=== PATIENT | female | born 1955 | race Caucasian/White ===

== ENCOUNTER 2023-06-20 08:06 | Outpatient (REF) | payer MEDICARE, OTHER, SELFPAY ==
--- NOTE | ~2023-06-20 | FL_ITS ---
EXAMINATION: XR FLUOROSCOPY UPPER GI WITH AIR CLINICAL INFORMATION: Dysphagia COMPARISON: None TECHNIQUE: Fluoroscopic air contrast upper GI examination was performed utilizing standard techniques with thin and thick barium and effervescent granules. Numerous spot images were obtained. FINDINGS: Lateral cine images of the oropharynx and hypopharynx demonstrate normal swallow mechanism with normal epiglottic inversion and soft palate elevation. No tracheal penetration, glottic or subglottic aspiration identified. Minimal nasopharyngeal reflux present. Hypopharyngeal structures appear normal without evidence of mass or diverticulum. There is moderate persistent cricopharyngeal achalasia present. Dual and single contrast images of the esophagus demonstrate normal caliber, contour, and mucosal pattern. No evidence of stricture, mass, or ulcerations identified. There is to and fro motion of the barium column with nonpropulsive tertiary contractions noted throughout the entire esophagus. A small type I hiatal hernia is present. Mildly ratty appearing mucosa noted within the hiatus hernia, suggesting possible erosive changes/peptic disease. No significant gastroesophageal reflux was seen during the course of the examination and on reflux views. Dual contrast and single contrast images of the stomach demonstrated normal contour and mucosal pattern without evidence of mass, ulceration, or other abnormality. Contrast freely passed into the gastric antrum and duodenal bulb without delay. Single and air-contrast images of the duodenal bulb demonstrate no abnormality. The duodenal sweep has a normal appearance, course, and mucosal fold appearance. There is a second segment duodenal diverticulum. No malrotation. The imaged proximal jejunum has a normal fold pattern and caliber. FLUOROSCOPY TIME: 4 minutes 24 seconds Number of Spot Images: 8 Number of Cine: 12 DOSE AREA PRODUCT: 2447 uGy-m2 (microgray-meter squared) FL/FL barium swallow IMPRESSION: 1. Moderate persistent pronounced cricopharyngeal achalasia. 2. Esophageal dysmotility, moderate. 3. Small type I hiatal hernia, with possible ratty type mucosa within, which may be circulation sales representative of erosive changes. 4. Second segment duodenal diverticulum. This procedure was performed by Jay Garibay PA-C, and supervised by Dr. Dominguez
== END 2023-06-20 08:07 | disposition home or self-care (01) ==
LOC: HO.XRAY 08:06
PROVIDERS: PCP Internal Medicine; Visit Provider Otolaryngology
DX: R13.10 Dysphagia, unspecified (principal)
CPT/HCPCS: 74220

== ENCOUNTER → 2023-06-20 08:08 | Outpatient (BNV) | payer MEDICARE, OTHER, SELFPAY | PROVIDERS: PCP Internal Medicine; Visit Provider Physician Assistant Surgical | DX: R13.10 Dysphagia, unspecified (principal) | CPT/HCPCS: 74246 ==

== ENCOUNTER 2023-09-30 19:59 | Emergency (ER) | payer MEDICARE, OTHER, SELFPAY ==
--- NOTE | ~2023-09-30 | XR_ITS ---
EXAMINATION: XR KNEE, RIGHT CLINICAL INFORMATION: Twisting injury, pain COMPARISON: None available. TECHNIQUE: Four views of the right knee. FINDINGS: Bones are diffusely osteopenic. No fracture or joint effusion. Alignment is anatomic. Joint spaces are maintained. No abnormal soft tissue calcification. XR/XR knee RT 4V IMPRESSION: No acute fracture or dislocation of the right knee.
--- NOTE | 2023-09-30 20:04 | ED.PSYCH ---
HPI - Psych General Chief Complaint: Extremity Injury, Lower Stated Complaint: fall, R knee pain Time Seen by Provider: 09/30/23 21:27 History of Present Illness ED Provider: Irving BORGES Narrative: The patient is a 67-year-old female who comes to the emergency room after injuring her right knee. She says that she was outside near her car when she lost her balance and started to fall. She was able to catch herself against the car so she did not fall down but in doing so she twisted her right knee and has had pain in the knee ever since. This happened earlier today. She did not actually fall and she did not actually hit the knee. She has been able to walk but has been having pain with walking. She says that she falls a lot and has been falling a lot for a long time. She has a cane with her today but says she does not normally use the cane. Related Data Allergies Allergy/AdvReac Type Severity Reaction Status Date / Time procaine [From Novocain] AdvReac Agitated Verified 09/30/23 20:06 Review of Systems Review of Systems: Yes all other systems are reviewed and are negative [facility] Social History Social History Advance Directives: No Advance Directives Information Provided: No Do you have a plan to hurt others: No Plan Physical Exam Vital Signs: Vital Signs: Last Vital Signs Temp 97.3 F 09/30/23 22:05 Pulse 89 09/30/23 22:05 Resp 16 09/30/23 22:05 BP 141/73 H 09/30/23 22:05 Pulse Ox 95 09/30/23 22:05 O2 Del Method Room Air 09/30/23 22:05 BMI result Body Mass Index 32.3 Const: Other: The patient is awake, alert, pleasant, cooperative. She was standing using a cane when I entered the room. She was limping slightly. HEENT: Other: Face is symmetrical, mucous membranes moist Resp: Effort & Inspection: normal respiratory effort Skin: Other: The skin of the right knee is normal. There is no redness or swelling or bruising. Neuro: Other: The patient is awake and alert with a normal mental status. Face is symmetrical. Speech is clear. She seems to have a steady gait with a cane. Extrem: Other: No deformities of the right leg. No soft tissue swelling to the right knee. No effusion appreciated. I can manipulate the knee fairly well in all directions. There is tenderness on the lateral aspect of the knee but no gross instability. Course Course Course Narrative: This is an RME performed by Marjan Cr CNP: Additional HPI, ROS, PE not included below will be deferred to primary provider. Patient is a 67-year-old female who presents emergency department for evaluation. She states she was walking downstairs in her garage when she tripped and had a near fall. Believes that she twisted her right knee a certain way and is having pain particularly along the lateral aspect radiating up her thigh by with localized swelling Plan: XR Medical Decision Making Medical Decision Making MDM Narrative: I believe the patient has sustained a mild right knee sprain with a twisting mechanism as she had a slight fall. There was no direct blow to the knee. There were no other injuries. An x-ray of the knee shows no acute bony abnormalities and no joint effusion. She will be given a knee immobilizer and advised to rest and take it easy, avoid walking for the next few days, elevate the leg often, use ice, and follow up with her regular doctor. Discharge Plan Discharge Clinical Impression: Right knee sprain Patient Disposition: Home, Self-Care Instructions: Knee Sprain (ED) Additional Instructions: I believe that you have sustained a mild sprain to your right knee. I have looked at your x-ray and do not see any obvious problems. If the radiologist sees something I do not see I will call you. Please use the knee immobilizer to stabilize the knee and for comfort. Rest and take it easy for the next few days. Keep the right leg elevated. Stay off the leg as much as you are able to for the next few days. Apply ice to the knee for 10-15 minutes several times a day. I would recommend that you use your cane routinely to help avoid falls in the future. Follow up soon with your regular doctor. Return to the emergency room if worse. Referrals: Doc Acharya MD [Primary Care Provider] - (right knee sprain) Interventions: ED Discharge Assessment Last Done: 09/30/23 22:05 Discharge Date/Time: 09/30/23 22:06 Print Language: Setswana
[2023-09-30 20:05] VITALS: BP 141/73; PULSE 89; RESP 16; TEMP 36.3; O2SAT 95; BMI 32.3
--- OUTSIDE RECORDS SUMMARY | 2023-09-30 21:24 | XMS_ITS | Continuity of Care Document ---
Author Organization [facility] Address [address] [place] [address] [address] [place] [address]- Care Team Providers Care Drier Tender Name Role Phone Doc Acharya MD Primary Care Physician [facility] Date(s): 06/02/23 - 07/02/23 [facility] [address] [place] [id number] Allergies, Adverse Reactions, Alerts Substance Reaction Severity Status epinephrine increaased heart rate and rapid breathing Active Novocain heavy breathing Active Latex rash Active Immunizations Given and Recorded Vaccine Date Status Refusal Reason influenza virus vaccine, inactivated 1 01/12/23 Gi zakiya influenza virus vaccine, inactivated 2 11/26/21 Gi zakiya influenza virus vaccine, inactivated 12/07/19 Give n influenza virus vaccine, inactivated 12/05/17 Brent rded influenza virus vaccine, inactivated 3 02/18/17 Gi zakiya influenza virus vaccine, inactivated 10/12/15 Give n influenza virus vaccine, inactivated 10/07/15 Brent rded influenza virus vaccine, inactivated 01/19/15 Give n influenza virus vaccine, inactivated 11/18/13 Brent rded influenza virus vaccine, inactivated 4 11/18/13 Re corded influenza virus vaccine, inactivated 5 12/21/12 Gi zakiya [id number] bivalent booster vax 12/16/21 Recorded SARS-CoV-2 mRNA (kgchzmn-krde-ambdq) vax 6 12/04/21 Recorded SARS-CoV-2 (COVID-19) mRNA-1273 vaccine 01/28/21 R ecorded SARS-CoV-2 (COVID-19) mRNA-1273 vaccine 05/29/20 G iven SARS-CoV-2 (COVID-19) mRNA-1273 vaccine 05/01/20 G iven pneumococcal 23-valent vaccine 11/16/19 Given pneumococcal 13-valent vaccine 09/27/18 Given tetanus/diphtheria/pertussis, acel(Tdap) 09/25/14 Given FluLaval (oldterm) 7 11/12/11 Given FluLaval (oldterm) 8 02/15/11 Given influ virus vac, H1N1, inactive(oldterm) 11/27/09 Given Influenza Virus Vaccine (oldterm) 9 02/04/09 Given Influenza Virus Vaccine (oldterm) 01/05/08 Given Influenza Inactive (IM) (oldterm) 10 12/22/05 Give n tetanus-diphtheria toxoids (Td) 12/09/05 Given tetanus-diphtheria toxoids (Td) 02/29/96 Given 1Result Comment: [id number] Checklist done 2Result Comment: [facility]# [id number] 3Result Comment: [02/18/2017] [facility]:[id number] 4Location History: [facility] 5Admin Note: [facility] 6Result Comment: booster 7Admin Note: [employer] 8Admin Note: [employer] 9Admin Note: per pt rcvd [facility]where 10Admin Note: [facility] Medications hydrocortisone 2.5% topical cream See Instructions, APPLY TOPICALLY TO AFFECTED AREA THREE TIMES A DAY, # 28 Gm, 6 Refills, Maintenance, 06/14/22 10:25:00 EDT, [facility], 15, APPLY TOPICALLY TO AFFECTED AREA THREE TIMES A DAY, 168, cm, 05/18/22 12:13:00 EDT, Height, 98, kg,... Start Date: 06/14/22 Status: Ordered levothyroxine 0.088 mg oral tablet 1 tablet, By Mouth, Daily, # 90 tablet, 3 Refills, Maintenance, 11/18/22 13:51:00 EDT, [facility], 168, cm, 10/21/22 6:56:00 EDT, Height, 98, kg, 11/29/21 14:21:00 EDT, Dry Weight Start Date: 11/18/22 Status: Ordered nystatin topical 880803 u/gm powder 1 application, Topically, 2 times a day, for 14 days, # 60 Gm, 0 Refills, Acute 07/15/23 11:02:00 EDT, 07/01/23 11:02:00 EDT, Powder, [facility], Partial fill upon patient request if the prescription is for a schedule II opioid drug., 1 appli... Start Date: 07/01/23 Stop Date: 07/15/23 Status: Ordered Problem List Condition Confirmation Course Effective Dates Status H ealth Status Informant Actinic keratosis Confirmed Active Anxiety Confirmed Active Colonoscopy 1, 2 Confirmed Active Eczema Confirmed Active Episcleritis Confirmed Active Elevated sedimentation rate Confirmed Active Gastroesophageal reflux disease with hiatal hernia 3 Confirmed Active H/O psoriasis Confirmed Active Hematuria Confirmed Active Hypothyroid Confirmed Active IBS (irritable bowel syndrome) Confirmed Active Multiple thyroid nodules 4 Confirmed Active Neck pain Confirmed Active Nephrolithiasis Confirmed Active Ovarian cyst Confirmed Active Left knee pain Confirmed Active Panic attacks Confirmed Active Polyarthritis Confirmed Active Polycystic ovarian disease Confirmed Active Uterine polyp Confirmed Active Postherpetic neuralgia Confirmed Active Prolonged QT interval Confirmed Active Recurrent UTI Confirmed Active Renal cyst Confirmed Active Right aortic arch Confirmed Active Seasonal allergies Confirmed Active Severe obesity (BMI 35.0-39.9) with comorbidity Confirmed Active Cricopharyngeal achalasia Confirmed Active Unsteady gait Confirmed Active Vertigo Confirmed Active 1Colonoscopy 2013 normal, repeat 2023. 36490 negative repeat 2013 3egd 2008 negative barretts 4noted by ct scan done at [facility] 2009 Social History Social History Type Response Smoking Status Never smoker entered on: 03/26/13 Sex Patient Care team information Care Team Personnel Name: Patrizia DOWNING, Doc Calzada Position: S Physician - Primary Care Member Role: PCP Address: Address: [address] [place] [address]- Care Team Related Persons Name: CHRIS BAEZ Name: STELLA BAEZ Address: home [address] [place] [id number]
--- OUTSIDE RECORDS SUMMARY | 2023-09-30 21:24 | XMS_ITS | Continuity of Care Document ---
Author Organization [facility] Address [address] [place] [address]- Care Team Providers Care Document Review Attorney Name Role Phone Doc Acharya MD Primary Care Physician [facility]): 05/18/22 - 06/17/22 [facility] [address] [place] [address]- Attending Physician: Admtr, Ar8 Allergies, Adverse Reactions, Alerts Substance Reaction Severity Status epinephrine Active Novocain heavy breathing Active Latex Active Immunizations Given and Recorded Vaccine Date Status Refusal Reason SARS-CoV-2 mRNA (bexmtmo-brbf-gatjd) vax 1 12/04/21 Recorded influenza virus vaccine, inactivated 2 11/26/21 Gi zakiya influenza virus vaccine, inactivated 12/07/19 Give n influenza virus vaccine, inactivated 3 02/18/17 Gi zakiya influenza virus vaccine, inactivated 10/12/15 Give n influenza virus vaccine, inactivated 10/07/15 Brent rded influenza virus vaccine, inactivated 01/19/15 Give n influenza virus vaccine, inactivated 11/18/13 Brent rded influenza virus vaccine, inactivated 4 11/18/13 Re corded influenza virus vaccine, inactivated 5 12/21/12 Gi zakiya SARS-CoV-2 (COVID-19) mRNA-1273 vaccine 05/29/20 G iven SARS-CoV-2 (COVID-19) mRNA-1273 vaccine 05/01/20 G iven pneumococcal 23-valent vaccine 11/16/19 Given pneumococcal 13-valent vaccine 09/27/18 Given tetanus/diphtheria/pertussis, acel(Tdap) 09/25/14 Given FluLaval (oldterm) 6 11/12/11 Given FluLaval (oldterm) 7 02/15/11 Given influ virus vac, H1N1, inactive(oldterm) 11/27/09 Given Influenza Virus Vaccine (oldterm) 8 02/04/09 Given Influenza Virus Vaccine (oldterm) 01/05/08 Given Influenza Inactive (IM) (oldterm) 9 12/22/05 Given tetanus-diphtheria toxoids (Td) 12/09/05 Given tetanus-diphtheria toxoids (Td) 02/29/96 Given 1Result Comment: booster 2Result Comment: [facility]# [id number] 3Result Comment: [02/18/2017] [facility]:[id number] 4[facility] 5[facility] Note: [facility] 6Admin Note: [employer] 7Admin Note: [employer] 8Admin Note: per pt rcvd eklsewhere 9Admin Note: [facility] Medications hydrocortisone 2.5% topical cream See Instructions, APPLY TOPICALLY TO AFFECTED AREA THREE TIMES A DAY, # 28 Gm, 6 Refills, Maintenance, 06/14/22 10:25:00 EDT, [facility] # [facility], 15, APPLY TOPICALLY TO AFFECTED AREA THREE TIMES A DAY, 168, cm, 05/18/22 12:13:00 EDT, Height, 98, kg,... Start Date: 06/14/22 Status: Ordered levothyroxine 0.088 mg oral tablet 1 tablet, By Mouth, Daily, # 30 tablet, 5 Refills, Maintenance, 04/13/22 6:31:00 EST, [facility] # [facility], 168, cm, 01/06/22 13:21:00 EST, Height, 98, kg, 11/29/21 14:21:00 EDT, Dry Weight Start Date: 04/13/22 Status: Ordered physical therapy physical therapy, See Instructions, # 1 each, Refills 0, Tot. Refills 0, Maintenance, evaluate and treat for left knee pain, 05/18/22 12:54:00 EDT, Supply Start Date: 05/18/22 Status: Ordered Problem List Condition Confirmation Course [...] Confirmed Active Polycystic ovarian disease Confirmed Active Postherpetic neuralgia Confirmed Active Prolonged QT interval Confirmed Active Renal cyst Confirmed Active Right aortic arch Confirmed Active Seasonal allergies Confirmed Active Unsteady gait Confirmed Active Vertigo Confirmed Active 1Colonoscopy 2013 normal, repeat negative repeat 2013 3egd 2008 negative barretts 4noted by ct scan done [place] [facility] [place] 2009 Social History Social History Type Response Smoking Status Never smoker entered on: 03/26/13 Sex Note * Event Display: Non [facility] Lab Results Authored Date: * Event Display: Non [facility] Lab Results Authored Date: * Event Display: Non BH Lab Results Authored Date: * Event Display: Non [facility] Lab Results Authored Date: * Event Display: Ultrasound Pelvis, Non-BH Authored Date: * Event Display: Radiology Result Scanned Authored Date: * Annie Sargent.: PERFORM Event Display: Radiology Results Scanned Authored Date: * Jacqueline Kline: PERFORM Event Display: Cardiovascular Results Scanned Authored Date: * Annie Sargent.: PERFORM Event Display: Radiology Results Scanned Authored Date: Cardiology Outpatient Note * Jacqueline Kline: PERFORM Event Display: Cardiology Note Office Authored Date: Patient Care team information Care Team Personnel Name: Doc Acharya MD Position: [facility] Primary Care Physician Member Role: PCP Address: Address: [address] [place] [address] [place] [address]- Care Team Related Persons Name: CHRIS BAEZ Name: STELLA BAEZ Address: home [address] [place] [id number]
--- OUTSIDE RECORDS SUMMARY | 2023-09-30 21:24 | XMS_ITS | Continuity of Care Document ---
Author Organization [facility] Address [address] [place] [address]- Care Team Providers Care Texturing Machine Fixer Name Role Phone Doc Acharya MD Primary Care Physician Encounter [facility] Date(s): 07/05/23 - 08/11/23 [facility] [address] [place] [address]- Attending Physician: David Hamm MD Admitting Physician: David Hamm MD Referring Physician: Doc Acharya MD Allergies, Adverse Reactions, Alerts Substance Reaction Severity Status epinephrine increaased heart rate and rapid breathing Active Latex rash Active Novocain heavy breathing Active Immunizations Given and Recorded Vaccine Date [...] virus vaccine, inactivated 5 12/21/12 Gi zakiya [id number] bivalent booster vax 12/16/21 Recorded SARS-CoV-2 mRNA (hrudlpi-htxd-ntooo) vax 6 12/04/21 Recorded SARS-CoV-2 (COVID-19) mRNA-1273 [...] tetanus-diphtheria toxoids (Td) 02/29/96 Given 1Result Comment: [id number] Checklist done 2Result Comment: [facility]# [id number] 3Result Comment: [02/18/2017] [facility]:[id number] 4Location History: [facility] 5Admin Note: [facility] 6Result Comment: booster 7Admin Note: [employer] 8Admin Note: [employer] 9Admin Note: per pt rcvd eklsewhere 10Admin Note: [facility] Medications hydrocortisone 2.5% topical cream See Instructions, APPLY TOPICALLY TO AFFECTED AREA THREE TIMES A DAY, # 28 Gm, 6 Refills, Maintenance, 06/14/22 10:25:00 EDT, [facility], 15, APPLY TOPICALLY TO AFFECTED AREA THREE TIMES A DAY, 168, cm, 05/18/22 12:13:00 EDT, Height, 98, kg,... Start Date: 06/14/22 Status: Ordered levothyroxine 0.088 mg oral tablet 1 tablet, By Mouth, Daily, # 90 tablet, 3 Refills, Maintenance, 11/18/22 13:51:00 EDT, [facility], 168, cm, 10/21/22 6:56:00 EDT, Height, 98, kg, 11/29/21 14:21:00 EDT, Dry Weight Start Date: 11/18/22 Status: Ordered Nystop 338163 u/gm powder See Instructions, APPLY TOPICALLY TWO TIMES A DAY FOR 14 DAYS, # 60 Gm, 0 Refills, Maintenance, 07/26/23 11:00:00 EDT, [facility], 30, APPLY TOPICALLY TWO TIMES A DAY FOR 14 DAYS, 167.64, cm, 07/07/23 11:17:00 EDT, Height, 98.4, kg, 12/21/22... Start Date: 07/26/23 Status: Ordered Problem List Condition Confirmation Course [...] barretts 4noted by ct scan done at [facility] [place] 2009 Social History Social History Type Response Smoking Status Never smoker entered on: 03/26/13 Sex Patient Care team information Care Team Personnel Name: Doc Acharya MD Position: [facility] Physician - Primary Care Member Role: PCP Address: Address: [address] [place] [address]- Care Team Related Persons Name: CHRIS BAEZ Name: STELLA BAEZ Address: [address] [place] [address]
--- OUTSIDE RECORDS SUMMARY | 2023-09-30 21:24 | XMS_ITS | Continuity of Care Document ---
Author Organization [facility] Address [address] [place] [address] [address] [place] [address]- Care Team Providers Care Spoon Maker Name Role Phone Dco Acharya MD Primary Care Physician [facility]s): 05/[facility]23 - 06/30/23 [facility] [address] [place] [id number] Attending Physician: Admtr, Son8 Admitting Physician: Admtr, Ar8 Referring Physician: Admtr, Ar8 Allergies, Adverse Reactions, Alerts [...] virus vaccine, inactivated 5 12/21/12 Gi zakiya [id number] bivalent booster vax 12/16/21 Recorded SARS-CoV-2 mRNA (nwovxwg-vazz-xlbxb) vax 6 12/04/21 Recorded SARS-CoV-2 (COVID-19) mRNA-1273 [...] tetanus-diphtheria toxoids (Td) 02/29/96 Given 1Result Comment: [id number] Checklist done 2Result Comment: [facility]# [id number] 3Result Comment: [02/18/2017] [facility]:[id number] 4Location History: [facility] 5Admin Note: [facility] 6Result Comment: booster 7Admin Note: [employer] 8Admin Note: [employer] 9Admin Note: per pt rcvd eklsewhere 10Admin Note: [facility] Medications hydrocortisone 2.5% topical cream See Instructions, APPLY TOPICALLY TO AFFECTED AREA THREE TIMES A DAY, # 28 Gm, 6 Refills, Maintenance, 06/14/22 10:25:00 EDT, [facility], 15, APPLY TOPICALLY TO AFFECTED AREA THREE TIMES A DAY, 168, cm, 05/18/22 12:13:00 EDT, Height, 98, kg,... Start Date: 06/14/22 Status: Ordered levothyroxine 0.088 mg oral tablet 1 tablet, By Mouth, Daily, # 90 tablet, 3 Refills, Maintenance, 11/18/22 13:51:00 EDT, [facility], 168, cm, 10/21/22 6:56:00 EDT, Height, 98, kg, 11/29/21 14:21:00 EDT, Dry Weight Start Date: 11/18/22 Status: Ordered Problem List Condition Confirmation Course [...] obesity (BMI 35.0-39.9) with comorbidity Confirmed Active Unsteady gait Confirmed Active Vertigo Confirmed Active 1Colonoscopy 2013 normal, repeat negative repeat 2013 3e2008 negative barretts 4noted by ct scan done at [facility] [place] 2009 Social History Social History Type Response Smoking Status Never smoker entered on: 03/26/13 Sex Patient Care team information Care Team Personnel Name: Doc Acharya MD Position: [facility] Physician - Primary Care Member Role: PCP Address: Address: [address] [place] [address]- Care Team Related Persons Name: CHRIS BAEZ Name: STELLA BAEZ Address: home [address] [place] [address]
--- OUTSIDE RECORDS SUMMARY | 2023-09-30 21:24 | XMS_ITS | Continuity of Care Document ---
Author Organization [facility] Address [address] [place] [address]- Care Team Providers Care Plate Stacker Hand Name Role Phone Patrizia DOWNING, Doc Calzada Primary Care Physician [facility] Date(s): 07/01/23 - 07/31/23 [facility] Adult [address] [place] [address]- Attending Physician: Admtr, Ar8 Allergies, Adverse Reactions, [...] influenza virus vaccine, inactivated 3 02/18/17 Gi azkiya influenza virus vaccine, inactivated 10/12/15 Give n influenza virus vaccine, inactivated 10/07/15 Brent rded influenza virus vaccine, inactivated 01/19/15 Give n influenza virus vaccine, inactivated 11/18/13 Brent rded influenza virus vaccine, inactivated 4 11/18/13 Re corded influenza virus vaccine, inactivated 5 12/21/12 Gi zakiya [id number] bivalent booster vax 12/16/21 Recorded SARS-CoV-2 mRNA (whlwala-gmhb-qvlha) vax 6 12/04/21 Recorded SARS-CoV-2 (COVID-19) mRNA-1273 [...] tetanus-diphtheria toxoids (Td) 02/29/96 Given 1Result Comment: [id number] Checklist done 2Result Comment: HD [facility]# [id number] 3Result Comment: [02/18/2017] [facility]:[id number] 4Location History: [facility] 5Admin Note: [facility] 6Result Comment: booster 7Admin Note: [employer] 8Admin Note: [employer] 9Admin Note: per pt rcvd [facility] 10Admin Note: clinic [facility] Medications hydrocortisone 2.5% topical cream See Instructions, APPLY TOPICALLY TO AFFECTED AREA THREE TIMES A DAY, # 28 Gm, 6 Refills, Maintenance, 06/14/22 10:25:00 EDT, [facility], 15, APPLY TOPICALLY TO AFFECTED AREA THREE TIMES A DAY, 168, cm, 05/18/22 12:13:00 EDT, Height, 98, kg,... Start Date: 06/14/22 Status: Ordered levothyroxine 0.088 mg oral tablet 1 tablet, By Mouth, Daily, # 90 tablet, 3 Refills, Maintenance, 11/18/22 13:51:00 EDT, [facility], 168, cm, 10/21/22 6:56:00 EDT, Height, 98, kg, 11/29/21 14:21:00 EDT, Dry Weight Start Date: 11/18/22 Status: Ordered Nystop 126026 u/gm powder See Instructions, APPLY TOPICALLY TWO [...] barretts 4noted by ct scan done at [facility] [place] 2009 Social History Social History Type Response Smoking Status Never smoker entered on: 03/26/13 Sex Cardiology * Jacqueline Kline: PERFORM Event Display: Cardiovascular Results Scanned Authored Date: Laboratory * Event Display: Non BH Lab Results Authored Date: * Event Display: Non BH Lab Results Authored Date: * Event Display: Non BH Lab Results Authored Date: * Event Display: Non BH Lab Results Authored Date: Cardiology Outpatient Note * Jacqueline Kline: PERFORM Event Display: Cardiology Note Office Authored Date: [id number] Radiology * Event Display: IR Special Procedures, Non-BH Authored Date: * Event Display: Ultrasound Pelvis, Non-BH Authored Date: * Event Display: Radiology Result Scanned Authored Date: * Annie Sargent.: PERFORM Event Display: Radiology Results Scanned Authored Date: [id number] * Annie Sargent.: PERFORM Event Display: Radiology Results Scanned Authored Date: Patient Care team information Care Team Personnel Name: Patrizia DOWNING, Doc Calzada Position: S Physician - Primary Care Member Role: PCP Address: Address: [address] [place] [address]- Care Team Related Persons Name: CHRIS BAEZ Name: STELLA BAEZ Address: [address] [address]
--- OUTSIDE RECORDS SUMMARY | 2023-09-30 21:24 | XMS_ITS | Continuity of Care Document ---
Author Organization [facility] Address [address] [place] [address]- Care Team Providers Care Public Relations Professional Name Role Phone Doc Acharya MD Primary Care Physician [phone] Encounter [facility] Date(s): 01/12/23 - 01/19/23 [facility] Adult [address] [place] [address]- Encounter Diagnosis Hypothyroid(Discharge Diagnosis) - 01/12/23 Nephrolithiasis(Discharge Diagnosis) - 01/12/23 Attending Physician: Doc Acharya MD Allergies, Adverse Reactions, [...] virus vaccine, inactivated 5 12/21/12 Gi zakiya [id number] bivalent booster vax 12/16/21 Recorded SARS-CoV-2 mRNA (qkeurjr-ubiw-nptbp) vax 6 12/04/21 Recorded SARS-CoV-2 (COVID-19) mRNA-1273 [...] tetanus-diphtheria toxoids (Td) 02/29/96 Given 1Result Comment: [id number] Checklist done 2Result Comment: [facility]# [id number] 3Result Comment: [02/18/2017] [facility]:[id number] 4Location History: [facility] 5Admin Note: [facility] 6Result Comment: booster 7Admin Note: [facility] [employer] 8Admin Note: [facility] 9Admin Note: per pt rcvd [facility] 10Admin Note: clinic [facility] Medications hydrocortisone 2.5% topical cream See Instructions, APPLY TOPICALLY TO AFFECTED AREA THREE TIMES A DAY, # 28 Gm, 6 Refills, Maintenance, 06/14/22 10:25:00 EDT, [facility], 15, APPLY TOPICALLY TO AFFECTED AREA THREE TIMES A DAY, 168, cm, 05/18/22 12:13:00 EDT, Height, 98, kg,... Start Date: 06/14/22 Status: Ordered levothyroxine 0.088 mg oral tablet 1 tablet, By Mouth, Daily, # 90 tablet, 3 Refills, Maintenance, 11/18/22 13:51:00 EDT, [facility], 168, cm, 10/21/22 6:56:00 [...] barretts 4noted by ct scan done at [facility] [place] 2009 Diagnosis Diagnosis Type Effective Dates Health Status Cl inical Service Informant Hypothyroid Discharge Diagnosis 01/12/23 Nephrolithiasis Discharge Diagnosis 01/12/23 Vital Signs Most recent to oldest [Reference Range]: 1 Height 167.64 cm (01/12/23 9:36 AM) Weight 99.7 kg (01/12/23 9:36 AM) Oxygen Saturation [94-100 %] 99 % (01/12/23 9:36 AM) Pulse Rate [55-90 bpm] 89 bpm (01/12/23 9:36 AM) Body Mass Index [18.5-24.99 kg/m2] 35.48 kg/m2 *>HHI* (01/12/23 9:36 AM) Blood Pressure [90-138/55-84 mm Hg] 100/ 70mm Hg (01/12/23 9:36 AM) Mode of Delivery (Oxygen) Room air (01/12/23 9:36 AM) Blood pressure sites Arm, left (01/12/23 9:36 AM) Weight Obtained Via Standing scale (01/12/23 9:36 AM) Social History Social History Type Response Smoking Status Never smoker entered on: 03/26/13 Sex Patient Care team information Care Team Personnel Name: Patrizia DOWNING, Doc Calzada Position: S Physician - Primary Care Member Role: PCP Address: Address: [address] [place], [place] [address], [place] [address] [place] Care Team Related Persons Name: CHRIS BAEZ Name: STELLA BAEZ Address: home [address] [place] [address]
--- OUTSIDE RECORDS SUMMARY | 2023-09-30 21:25 | XMS_ITS | Continuity of Care Document ---
Author Organization [facility] Address [address] [place] [address]- Care Team Providers Care Retail Security Professional Name Role Phone Doc Acharya MD Primary Care Physician [phone] [facility] Date(s): 03/26/22 - 04/25/[address] [address] Attending Physician: Annie Chaney Admitting Physician: Admtr, Annie Referring Physician: Admtr, Ar8 Allergies, Adverse Reactions, Alerts Substance Reaction Severity Status epinephrine Active Novocain heavy breathing Active Latex Active Immunizations Given and Recorded Vaccine Date Status Refusal Reason SARS-CoV-2 mRNA (xtssymo-fvkk-wkgfp) vax 1 12/04/21 Recorded influenza virus vaccine, [...] Given 1Result Comment: booster 2Result Comment: HD [facility]# [id number] 3Result Comment: [02/18/2017] [facility]:[id number] 4Location History: [facility] 5Admin Note: [facility] 6Admin Note: [employer] 7Admin Note: [employer] 8Admin Note: per pt rcvd [facility] 9Admin Note: clinic [facility] Medications hydrocortisone 2.5% topical cream See Instructions, APPLY TOPICALLY THREE TIMES A DAY, # 30 Gm, 0 Refills, Maintenance, 04/13/22 10:51:00 EST, [facility] # [facility], 30, APPLY TOPICALLY THREE TIMES A DAY, 168, cm, 01/06/22 13:21:00 EST, Height, 98, kg, 11/29/21 14:21:00 EDT, Dry Weight Start Date: 04/13/22 Status: Ordered levothyroxine 0.088 mg oral tablet 1 tablet, By Mouth, Daily, # 30 tablet, 5 Refills, Maintenance, 04/13/22 6:31:00 EST, [facility] # [facility], 168, cm, 01/06/22 13:21:00 EST, Height, 98, kg, 11/29/21 14:21:00 EDT, Dry Weight Start Date: 04/13/22 Status: Ordered Problem List Condition Confirmation Course [...] Neck pain Confirmed Active Nephrolithiasis Confirmed Active Obese class II Confirmed Active Ovarian cyst Confirmed Active Panic attacks Confirmed Active Polyarthritis Confirmed Active Polycystic ovarian disease Confirmed Active Postherpetic neuralgia Confirmed Active Prolonged QT interval Confirmed Active Renal cyst Confirmed Active Right aortic arch Confirmed Active Seasonal allergies Confirmed Active Unsteady gait Confirmed Active Vertigo Confirmed Active 1Colonoscopy 2013 normal, repeat negative repeat 2013 3egd 2008 negative barretts 4noted by ct scan done at [facility] [place] 2009 Social History Social History Type Response Smoking Status Never smoker entered on: 03/26/13 Sex Patient Care team information Care Team Personnel Name: Patrizia DOWNING, Doc Calzada Position: [facility] Primary Care Physician Member Role: PCP Address: Address: [address] [place] [address]- Care Team Related Persons Name: CHRIS BAEZ Name: STELLA BAEZ Address: home [address] [place] [address]
--- OUTSIDE RECORDS SUMMARY | 2023-09-30 21:25 | XMS_ITS | Continuity of Care Document ---
Author Organization [facility] Address [address] [place] [address]- Care Team Providers Care Apprentice Funeral Director Name Role Phone Doc Acharya MD Primary Care Physician Encounter [facility] Date(s): 10/21/22 - 10/28/22 [facility] Adult [address] [place] [address]- Encounter Diagnosis Hypothyroid(Discharge Diagnosis) - 10/21/22 Severe obesity (BMI 35.0-39.9) with comorbidity(Discharge Diagnosis) - 10/21/22 Attending Physician: Doc Acharya MD Allergies, Adverse Reactions, Alerts Substance Reaction Severity Status epinephrine Active Novocain heavy breathing Active Latex Active Immunizations Given and Recorded Vaccine Date Status Refusal Reason SARS-CoV-2 mRNA (coxnork-nbye-pdeak) vax 1 12/04/21 Recorded influenza virus vaccine, inactivated 2 11/26/21 Gi zakiya influenza virus vaccine, inactivated 12/07/19 Give n influenza virus vaccine, inactivated 3 02/18/17 Gi zakiya influenza virus vaccine, inactivated 10/12/15 Give n influenza virus vaccine, inactivated 10/07/15 Brent rded influenza virus vaccine, inactivated 01/19/15 Give n influenza virus vaccine, inactivated 11/18/13 Bernt rded influenza virus vaccine, inactivated 4 11/18/13 [...] Given 1Result Comment: booster 2Result Comment: HD [facility]# [id number] 3Result Comment: [02/18/2017] [facility]:[id number] 4Location History: [facility] 5Admin Note: [facility] 6Admin Note: [employer] [facility] 7Admin Note: [employer] [facility] 8Admin Note: per pt rcvd [facility] 9Admin Note: clinic [facility] Medications hydrocortisone 2.5% topical cream See Instructions, APPLY TOPICALLY TO AFFECTED AREA THREE TIMES A DAY, # 28 Gm, 6 Refills, Maintenance, 06/14/22 10:25:00 EDT, [facility], 15, APPLY TOPICALLY TO AFFECTED AREA THREE TIMES A DAY, 168, cm, 05/18/22 12:13:00 EDT, Height, 98, kg,... Start Date: 06/14/22 Status: Ordered levothyroxine 0.088 mg oral tablet 1 tablet, By Mouth, Daily, # 90 tablet, 3 Refills, Maintenance, 10/21/22 7:27:00 EDT, [facility], 168, cm, 10/21/22 6:56:00 EDT, Height, 98, kg, 11/29/21 14:21:00 EDT, Dry Weight Start Date: 10/21/22 Status: Ordered physical therapy physical therapy, See [...] barretts 4noted by ct scan done at [facility] [place] 2009 Diagnosis Diagnosis Type Effective Dates Health Status Clinical Service Informant Hypothyroid Discharge Diagnosis 10/21/22 Severe obesity (BMI 35.0-39.9) with comorbidity Discharge Diagnosis 10/21/22 Vital Signs Most recent to oldest [Reference Range]: 1 Height 168 cm (10/21/22 6:56 AM) Weight 98.8 kg (10/21/22 6:56 AM) Oxygen Saturation [94-100 %] 98 % (10/21/22 6:56 AM) Pulse Rate [55-90 bpm] 84 bpm (10/21/22 6:56 AM) Body Mass Index [18.5-24.99 kg/m2] 35.01 kg/m2 *>HHI* (10/21/22 6:56 AM) Blood Pressure [90-138/55-84 mm Hg] 122/ 62mm Hg (10/21/22 6:56 AM) Blood pressure sites Arm, left (10/21/22 6:56 AM) Weight Obtained Via Standing scale (10/21/22 6:56 AM) Social History Social History Type Response Smoking Status Never smoker entered on: 03/26/13 Sex Note * Tori Dao: PERFORM, SIGN, VERIFY Event Display: Patient Education/Instruction Authored Date: [id number] [facility] *BMP Verónica Delacruz Clinical Summary Name BING SKELTON Age 67 Years 1955 PCP Patrizia DOWNING, Doc Calzada PCP Visit Date 10/21/2022 06:50:00 Additional Instructions: Scheduled Appointments?? Future Appointments ?*BMP??[facility] [address] ?Phone:??--?Fax:??-- ?Appt. Date:??01/12/2023?9:30 AM ?Scheduled Provider:??Doc Acharya MD Follow-Up Instructions ?? With: Address: When: Doc Acharya MD Comments: As scheduled Diagnosis Urinary tract infection, site not specified; Hypothyroidism, unspecified; Polyp of corpus uteri; Morbid (severe) obesity due to excess calories Medications: Please continue your medications until treatment is completed or stopped by your provider. Discuss any questions related to medications with your provider. Medications to Continue with No Changes [facility] [place], [place] [id number], [phone] Levothyroxine (levothyroxine 0.088 mg oral tablet) 1 tab(s) Oral Daily. Refills: 3. Next Dose: These medications were not printed or sent to your pharmacy Hydrocortisone Topical (hydrocortisone 2.5% topical cream) APPLY TOPICALLY TO AFFECTED AREA THREE TIMES A DAY. Refills: 6. Next Dose: Miscellaneous Rx (physical therapy) evaluate and treat for left knee pain. Refills: 0. Next Dose: Nitrofurantoin (Macrobid macrocrystals-monohydrate 100 mg oral capsule) 1 capsule Oral twice a day for 5 Days. with food. Refills: 0. Next Dose: Allergy Info:?? Latex; Novocain; epinephrine Medications Given This Visit Future Orders ?CBC? Order Date:10/21/22?- Complete on or after?10/21/22 ?Thyroid Panel? Order Date:10/21/22?- Complete on or after?10/21/22 ?Comprehensive Metabolic Panel? Order Date:10/21/22?- Complete on or after?10/21/22 ?Direct LDL? Order Date:10/21/22?- Complete on or after?10/21/22 Vital Signs Height 168 cm Weight 98.8 kg BMI 35.01 kg/m2 Blood Pressure 122 mm Hg/62 mm Hg Temperature Pulse Rate 84 bpm Respiratory Rate 02 Sat Mode of Delivery 98 %/ You can now view a summary of your hospital visit from the comfort of your home through a free online portal called [employer]. [employer] is a website that allows you to securely view your medical information including discharge summary, medications and follow-up visits. ??You can alsosend a secure electronic message to your doctor???s office to request appointments, renew medications or just ask a question. You can enroll at [email or web address] or register during your next office visit. Disclaimer:?? The information provided is of a general nature and is intended to be used in conjunction with the recommendations and advice of your health care practitioner. ??Every effort has been made to ensure that the information provided is accurate and complete at the time it is provided to you however, as your needs change, or, as new ??information becomes available, different or additional instructions may be required. If you have questions, please consult with your primary care provider or pharmacist, as appropriate. ??This information is not intended to serve as substitution for assessment and evaluation by a qualified health care provider. If you do not have a primary care provider, you may find a [facility] provider by calling [facility] at [phone]. For information about the plan of care including goals and instructions for your diagnosis, please see the patient education orders section of this document. Patient Education Materials?? The content of this educational material or handout may have been modified, supplemented, or adapted from its original content and format to support your individualized medical care. Patient Care team information Care Team Personnel Name: Patrizia DONWING, Doc Calzada Position: S Physician - Primary Care Member Role: PCP Address: Address: [address] [place] [address]- Care Team Related Persons Name: CHRIS BAEZ Name: STELLA BAEZ Address: [address] [place] [address]
--- OUTSIDE RECORDS SUMMARY | 2023-09-30 21:25 | XMS_ITS | Continuity of Care Document ---
Author Organization [facility] Address [address] [place] [address]- Care Team Providers Care Health Lead Name Role Phone Doc Acharya MD Primary Care Physician [phone] Encounter [facility] Date(s): 03/11/22 - 05/26/22 [facility] [address] [place] [address]- Encounter Diagnosis Pain in right knee(Final) - Discharge Disposition: A-D/C Home Attending Physician: Doc Acharya MD Admitting Physician: Doc Acharya MD Referring Physician: Doc Acharya MD Allergies, Adverse Reactions, Alerts Substance Reaction Severity Status epinephrine Active Novocain heavy breathing Active Latex Active Immunizations Given and Recorded Vaccine Date Status Refusal Reason SARS-CoV-2 mRNA (bxplotf-avoj-prcjf) vax 1 12/04/21 Recorded influenza virus vaccine, [...] 1Result Comment: booster 2Result Comment: HD [facility]# [id number] 3Result Comment: [02/18/2017] [facility]:[id number] 4[facility] History: [facility] 5Admin Note: [facility] 6Admin Note: [employer] 7Admin Note: [facility] 8Admin Note: per pt rcvd [facility] 9Admin Note: [facility] Medications hydrocortisone 2.5% topical cream See Instructions, APPLY TOPICALLY THREE TIMES A DAY, # 30 Gm, 0 Refills, Maintenance, 05/10/22 9:05:00 EDT, [facility], 30, APPLY TOPICALLY THREE TIMES A DAY, 168, cm, 01/06/22 13:21:00 EST,Height, 98, kg, 11/29/21 14:21:00 EDT, Dry Weight Start Date: 05/10/22 Status: Ordered levothyroxine 0.088 mg oral tablet 1 tablet, By Mouth, Daily, # 30 tablet, 5 Refills, Maintenance, 04/13/22 6:31:00 EST, [facility], 168, cm, 01/06/22 13:21:00 [...] barretts 4noted by ct scan done [place] [facility] [place] 2009 Social History Social History Type Response Smoking Status Never smoker entered on: 03/26/13 Sex Patient Care team information Care Team Personnel Name: Doc Acharya MD Position: [facility] Primary Care Physician Member Role: PCP Address: Address: [address] [place] [address]- Care Team Related Persons Name: CHRIS BAEZ Name: STELLA BAEZ Address: home [address] [place] [address]
--- OUTSIDE RECORDS SUMMARY | 2023-09-30 21:25 | XMS_ITS | Continuity of Care Document ---
Author Organization [facility] Address [address] [place] [address]- Care Team Providers Care Academic Department Chair Name Role Phone Doc Acharya MD Primary Care Physician [phone] [facility] Date(s): 10/22/22 - 11/21/22 [facility] Adult [address] [place] [address]- Allergies, Adverse Reactions, Alerts Substance Reaction Severity Status epinephrine Active Novocain heavy breathing Active Latex Active Immunizations Given and Recorded Vaccine Date Status Refusal Reason SARS-CoV-2 mRNA (tsglsgr-txms-jatab) vax 1 12/04/21 Recorded influenza virus vaccine, [...] Given 1Result Comment: booster 2Result Comment: [facility]# [id number] 3Result Comment: [02/18/2017] [facility]:[id number] 4Location History: [facility] 5Admin Note: [facility] 6Admin Note: [employer] 7Admin Note: [employer] 8Admin Note: per pt rcvd [facility] 9Admin Note: clinic [facility] Medications hydrocortisone 2.5% topical cream See Instructions, APPLY TOPICALLY TO AFFECTED AREA THREE TIMES A DAY, # 28 Gm, 6 Refills, Maintenance, 06/14/22 10:25:00 EDT, [facility], 15, APPLY TOPICALLY TO AFFECTED AREA THREE TIMES A DAY, 168, cm, 05/18/22 12:13:00 EDT, Height, 98, kg,... Start Date: 06/14/22 Status: Ordered levothyroxine 0.088 mg oral tablet 1 tablet, By Mouth, Daily, # 90 tablet, 3 Refills, Maintenance, 11/18/22 13:51:00 EDT, [facility], 168, cm, 10/21/22 6:56:00 EDT, Height, 98, kg, 11/29/21 14:21:00 EDT, Dry Weight Start Date: 11/18/22 Status: Ordered physical therapy physical therapy, See [...] barretts 4noted by ct scan done [place] [facility] [place] Social History Social History Type Response Smoking Status Never smoker entered on: 03/26/13 Sex Patient Care team information Care Team Personnel Name: Doc Acharya MD Position: [facility] Physician - Primary Care Member Role: PCP Address: Address: [address] [place] [address]- Care Team Related Persons Name: CHRIS BAEZ Name: STELLA BAEZ Address: home [address] [place] [address]
--- OUTSIDE RECORDS SUMMARY | 2023-09-30 21:25 | XMS_ITS | Continuity of Care Document ---
Author Organization [facility] Address [address] [place] [address]- Care Team Providers Care Manufacturing Engineering Professor Name Role Phone Doc Acharya MD Primary Care Physician [facility] Date(s): 11/30/21 - 12/30/21 [facility] Adult [address] [place] [address]- Allergies, Adverse Reactions, Alerts Substance Reaction Severity Status epinephrine Active Novocain heavy breathing Active Latex Active Immunizations Given and Recorded Vaccine Date Status Refusal Reason SARS-CoV-2 mRNA (nogeapv-gdxs-lwmvk) vax 1 12/04/21 Recorded influenza virus vaccine, [...] Given 1Result Comment: booster 2Result Comment: HD [facility]# [id number] 3Result Comment: [02/18/2017] [facility]:[id number] 4Location History: [facility] 5Admin Note: [facility] 6Admin Note: [facility] 7Admin Note: [facility] 8Admin Note: per pt rcvd [facility] 9Admin Note: [facility] Medications hydrocortisone 2.5% topical cream See Instructions, APPLY TOPICALLY THREE TIMES A DAY, # 28 Gm, 0 Refills, Maintenance, 12/18/21 17:20:00 EDT, [facility], 30, APPLY TOPICALLY THREE TIMES A DAY, 168, cm, 12/01/21 11:18:00 EDT, Height, 98, kg, 11/29/21 14:21:00 EDT, Dry Weight Start Date: 12/18/21 Status: Ordered levothyroxine 0.088 mg oral tablet See Instructions, TAKE ONE TABLET BY MOUTH EVERY DAY, # 30 tablet, 5 Refills, 10/15/21 10:54:00 EDT, [facility], Early refill, 170, cm, 10/09/21 12:40:00 EDT, Height Start Date: 10/15/21 Status: Ordered Problem List Condition Confirmation Course [...] Confirmed Active Nephrolithiasis Confirmed Active Obese class I Confirmed Active Ovarian cyst Confirmed Active Panic attacks Confirmed Active Polyarthritis Confirmed Active Polycystic ovarian disease Confirmed Active Postherpetic neuralgia Confirmed Active Prolonged QT interval Confirmed Active Renal cyst Confirmed Active Right aortic arch Confirmed Active Seasonal allergies Confirmed Active Unsteady gait Confirmed Active Vertigo Confirmed Active 1Colonoscopy 2013 normal, repeat 2023. negative repeat 2013 3egd 2009 negative barretts 4noted by ct scan done at [facility] 2009 Social History Social History Type Response Smoking Status Never smoker entered on: 03/26/13 Sex Patient Care team information Personnel Name: Patrizia DOWNING, Doc Calzada Address: Address: [address] [place] [id number]
--- OUTSIDE RECORDS SUMMARY | 2023-09-30 21:25 | XMS_ITS | Continuity of Care Document ---
Author Organization [facility] Kadeem Cecil Address [address] [place] [address]- Care Team Providers Care Shipping And Receiving Clerk Name Role Phone Patrizia DOWNING, Doc Calzada Primary Care Physician [phone] [facility] 07[facility]14[facility]21 - 07/21/21 [facility] Adult [address] [place] [address]- Attending Physician: Yisel Lyons Referring Physician: John Garcia MD Allergies, Adverse Reactions, Alerts Substance Reaction Severity Status epinephrine Active Novocain heavy breathing Active Latex Active Immunizations Given and Recorded Vaccine Date Status Refusal Reason SARS-CoV-2 (COVID-19) mRNA-1273 vaccine 05/29/20 G iven SARS-CoV-2 (COVID-19) mRNA-1273 vaccine 05/01/20 G iven influenza virus vaccine, inactivated 12/07/19 Give n influenza virus vaccine, inactivated 1 02/18/17 Gi zakyia influenza virus vaccine, inactivated 10/12/15 Give n influenza virus vaccine, inactivated 10/07/15 Brent rded influenza virus vaccine, inactivated 01/19/15 Give n influenza virus vaccine, inactivated 11/18/13 Brent rded influenza virus vaccine, inactivated 2 11/18/13 Re corded influenza virus vaccine, inactivated 3 12/21/12 Gi zakiya pneumococcal 23-valent vaccine 11/16/19 Given pneumococcal 13-valent vaccine 09/27/18 Given tetanus/diphtheria/pertussis, acel(Tdap) 09/25/14 Given FluLaval (oldterm) 4 11/12/11 Given FluLaval (oldterm) 5 02/15/11 Given influ virus vac, H1N1, inactive(oldterm) 11/27/09 Given Influenza Virus Vaccine (oldterm) 6 02/04/09 Given Influenza Virus Vaccine (oldterm) 01/05/08 Given Influenza Inactive (IM) (oldterm) 7 12/22/05 Given tetanus-diphtheria toxoids (Td) 12/09/05 Given tetanus-diphtheria toxoids (Td) 02/29/96 Given 1Result Comment: [02/18/2017] [facility]:[id number] 2Location History: [facility] 3Admin Note: [facility] 4Admin Note: [email or web address] 5Admin Note: [email or web address] 6Admin Note: per pt rcvd [facility] 7Admin Note: [facility] Medications Estrace Vaginal Cream 0.1 mg/g See Instructions, 1 gm vaginally daily at bedtime x one month and then reduce to twice a week, # 42.5 Gm, 0 Refills, Maintenance, 06/30/21 8:29:00 EDT, [facility], 170, cm, 06/30/21 8:09:00 EDT, Height Start Date: 06/30/21 Status: Ordered levothyroxine 0.088 mg oral tablet See Instructions, TAKE ONE TABLET BY MOUTH EVERY DAY, # 30 tablet, 2 Refills, [facility], 170, cm, 05/07/21 8:11:00 EST, Height Start Date: 05/18/21 Status: Ordered Problem List Condition Effective Dates Status Health Status Inform ant Actinic keratosis(Confirmed) Active Anxiety(Confirmed) Active Colonoscopy(Confirmed) 1, 2 Active Eczema(Confirmed) Active Episcleritis(Confirmed) Active Elevated sedimentation rate(Confirmed) Active Gastroesophageal reflux dise ase with hiatal hernia(Confirmed) 3 Active H/O psoriasis(Confirmed) Active Hematuria(Confirmed) Active Hypothyroid(Confirmed) Active IBS (irritable bowel syndrome)(Confirmed) Active Multiple thyroid nodules(Confirmed) 4 Active Neck pain(Confirmed) Active Nephrolithiasis(Confirmed) Active Obese class I(Confirmed) Active Ovarian cyst(Confirmed) Active Panic attacks(Confirmed) Active Polyarthritis(Confirmed) Active Polycystic ovarian disease(Confirmed) Active Postherpetic neuralgia(Confirmed) Active Prolonged QT interval(Confirmed) Active Renal cyst(Confirmed) Active Right aortic arch(Confirmed) Active Seasonal allergies(Confirmed) Active Unsteady gait(Confirmed) Active 1Colonoscopy 2013 normal, repeat negative repeat 2013 3egd 2009 negative barretts 4noted by ct scan done at [facility] [place] 2009 Vital Signs Most recent to oldest [Reference Range]: 1 Height 170 cm (07/14/21 10:38 AM) Oxygen Saturation [94-100 %] 98 % (07/14/21 10:38 AM) Pulse Rate [55-90 bpm] 81 bpm (07/14/21 10:38 AM) Blood Pressure [90-138/55-84 mm Hg] 117/ 47mm Hg (07/14/21 10:38 AM) Temperature [96.8-100.4 DegF] 97.4 DegF (07/14/21 10:38 AM) Blood pressure sites Arm, right (07/14/21 10:38 AM) Temperature Route Temporal (07/14/21 10:38 AM) Social History Social History Type Response Smoking Status Never smoker entered on: 03/26/13 Sex
--- OUTSIDE RECORDS SUMMARY | 2023-09-30 21:25 | XMS_ITS | Continuity of Care Document ---
Author Organization [facility] Kadeem Cecil lt Address [address] [place] [address]- Care Team Providers Care Patient Relations Coordinator Name Role Phone Doc Acharya MD Primary Care Physician [facility]): 05/07/21 - 06/06/21 [facility] Adult [address] [place] [address]- Attending Physician: Admtr, Ar8 Allergies, Adverse Reactions, Alerts Substance Reaction Severity Status epinephrine Active Novocain heavy breathing Active Latex Active Immunizations Given and Recorded Vaccine Date Status Refusal Reason SARS-CoV-2 (COVID-19) mRNA-1273 vaccine 05/29/20 G iven SARS-CoV-2 (COVID-19) mRNA-1273 vaccine 05/01/20 G iven influenza virus vaccine, inactivated 12/07/19 Give n influenza virus vaccine, inactivated 1 02/18/17 Gi zakiya influenza virus vaccine, inactivated [...] toxoids (Td) 02/29/96 Given 1Result Comment: [02/18/2017] [facility]:[id number] 2[facility] 3Admin Note: [facility] 4Admin Note: [facility] 5Admin Note: [facility] 6Admin Note: per pt rcvd [facility]where 7Admin Note: [facility] Medications levothyroxine 0.088 mg oral tablet See Instructions, TAKE ONE TABLET BY MOUTH EVERY DAY, # 30 tablet, 2 Refills, [facility], 170, cm, 05/07/21 8:11:00 [...] barretts 4noted by ct scan [place] [facility] [place] Social History Social History Type Response Smoking Status Never smoker entered on: 03/26/13 Sex
--- OUTSIDE RECORDS SUMMARY | 2023-09-30 21:25 | XMS_ITS | Continuity of Care Document ---
Author Organization [facility] Address [address] [place] [address]- Care Team Providers Care Vertica Architect Name Role Phone Doc Acharya MD Primary Care Physician [phone] [facility]s): 07/15/21 - 10/09/[address] [address] Discharge Disposition: A-D/C Home Attending Physician: Yisel Lyons Admitting Physician: iYsel Lyons Referring Physician: Yisel Lyons Allergies, Adverse Reactions, Alerts Substance Reaction Severity [...] toxoids (Td) 02/29/96 Given 1Result Comment: [02/18/2017] [facility]:[id number] 2Location History: [facility] 3Admin Note: [facility] 4Admin Note: [employer] 5Admin Note: [employer] 6Admin Note: per pt rcvd [facility]where 7Admin Note: [facility] Medications levothyroxine 0.088 mg oral tablet See Instructions, TAKE ONE TABLET BY MOUTH EVERY DAY, # 30 tablet, 5 Refills, 08/16/21 10:08:00 EDT, [facility], 170, cm, 08/13/21 11:28:00 EDT, Height Start Date: 08/16/21 Status: Ordered Problem List Condition Effective Dates [...] Active Seasonal allergies(Confirmed) Active Unsteady gait(Confirmed) Active Vertigo(Confirmed) Active 1Colonoscopy 2013 normal, repeat negative repeat 2013 3egd 2009 negative barretts 4noted by ct [place] [facility] [place] Social History Social History Type Response Smoking Status Never smoker entered on: 03/26/13 Sex
--- OUTSIDE RECORDS SUMMARY | 2023-09-30 21:25 | XMS_ITS | Continuity of Care Document ---
Author Organization [facility] Address [address] [place] [address]- Care Team Providers Care Chef De Partie Name Role Phone Patrizia DOWNING, Doc Calzada Primary Care Physician [phone] [facility](s): 09/10/19 - 10/10/19 [facility] Adult [address] [place] [address]- [facility] Allergies, Adverse Reactions, Alerts Substance Reaction Severity Status epinephrine Active Novocain heavy breathing Active Immunizations Given and Recorded Vaccine Date Status Refusal Reason pneumococcal 13-valent vaccine 09/27/18 Given influenza virus vaccine, inactivated 1 02/18/17 Gi zakiya influenza virus vaccine, inactivated 10/12/15 Give n influenza virus vaccine, inactivated 10/07/15 Brent rded influenza virus vaccine, inactivated 01/19/15 Give n influenza virus vaccine, inactivated 11/18/13 Brent rded influenza virus vaccine, inactivated 2 11/18/13 Re corded influenza virus vaccine, inactivated 3 12/21/12 Gi zakiya tetanus/diphtheria/pertussis, acel(Tdap) 09/25/14 Given FluLaval (oldterm) 4 11/12/11 Given FluLaval (oldterm) 5 02/15/11 Given influ virus vac, H1N1, inactive(oldterm) 11/27/09 Given Influenza Virus Vaccine (oldterm) 6 02/04/09 Given Influenza Virus Vaccine (oldterm) 01/05/08 Given Influenza Inactive (IM) (oldterm) 7 12/22/05 Given tetanus-diphtheria toxoids (Td) 12/09/05 Given tetanus-diphtheria toxoids (Td) 02/29/96 Given 1Result Comment: [02/18/2017] [facility]:[id number] 2Location History: [facility] 3Admin Note: [facility] 4Admin Note: [employer] 5Admin Note: [employer] 6Admin Note: per pt rcvd [facility]where 7Admin Note: clinic [facility] Medications Levoxyl 0.075 mg oral tablet 1 tablet = 75 mcg, By Mouth, Daily, # 90 tablet, 1 Refills, Maintenance, 04/26/19 16:11:00 EST, Tablet, [facility], 170, cm, 09/27/18 8:36:00 EDT, Height Start Date: 04/26/19 Status: Ordered Problem List Condition Effective Dates Status Health Status Inform ant Actinic keratosis(Confirmed) Active Anxiety(Confirmed) Active Colonoscopy(Confirmed) 1, 2 Active Eczema(Confirmed) Active Episcleritis(Confirmed) Active Elevated sedimentation rate(Confirmed) Active Gastroesophageal reflux dise ase with hiatal hernia(Confirmed) 3 Active H/O psoriasis(Confirmed) Active Hematuria(Confirmed) Active Hypothyroid(Confirmed) Active IBS (irritable bowel syndrome)(Confirmed) Active Multiple thyroid nodules(Confirmed) 4 Active Neck pain(Confirmed) Active Nephrolithiasis(Confirmed) Active Ovarian cyst(Confirmed) Active Panic attacks(Confirmed) Active Polyarthritis(Confirmed) Active Polycystic ovarian disease(Confirmed) Active Postherpetic neuralgia(Confirmed) Active Prolonged QT interval(Confirmed) Active Renal cyst(Confirmed) Active Right aortic arch(Confirmed) Active Seasonal allergies(Confirmed) Active Unsteady gait(Confirmed) Active 1Colonoscopy 2013 normal, repeat 2023. negative repeat 2013 3egd 2009 negative barretts 4noted by ct scan done [place] [facility] [place] 2010 Social History Social History Type Response Smoking Status Never smoker entered on: 03/26/13 Sex
--- OUTSIDE RECORDS SUMMARY | 2023-09-30 21:25 | XMS_ITS | Continuity of Care Document ---
Author Organization [facility] Cecil lt Address [address] [place] [address]- Care Team Providers Care Disc Ruler Operator Name Role Phone Doc Acharya MD Primary Care Physician [phone] [facility] Date(s): 11/18/22 - 12/18/22 [facility] Adult [address] [place] [address]- Allergies, Adverse Reactions, Alerts Substance Reaction Severity Status epinephrine Active Novocain heavy breathing Active Latex Active Immunizations Given and Recorded Vaccine Date Status Refusal Reason SARS-CoV-2 mRNA ([id number]) vax 1 12/04/21 Recorded influenza virus vaccine, [...] Given 1Result Comment: booster 2Result Comment: [facility] [place]NOTE 2]# [id number] 3Result Comment: [02/18/2017] [facility] [place] 2]:[id number] 4Location History: [facility] 5Admin Note: [facility] 6Admin Note: [employer] 7Admin Note: [employer] [facility] [employer] 8Admin Note: per pt rcvd [facility]where 9Admin Note: clinic [facility] Medications hydrocortisone 2.5% topical cream See Instructions, APPLY TOPICALLY TO AFFECTED AREA THREE TIMES A DAY, # 28 Gm, 6 Refills, Maintenance, 06/14/22 10:25:00 EDT, [facility] # [facility], 15, APPLY TOPICALLY TO AFFECTED AREA THREE TIMES A DAY, 168, cm, 05/18/22 12:13:00 EDT, Height, 98, kg,... Start Date: 06/14/22 Status: Ordered levothyroxine 0.088 mg oral tablet 1 tablet, By Mouth, Daily, # 90 tablet, 3 Refills, Maintenance, 11/18/22 13:51:00 EDT, [facility], 168, cm, 10/21/22 6:56:00 [...] barretts 4[place] [facility] [place] Social History Social History Type Response Smoking Status Never smoker entered on: 03/26/13 Sex Patient Care team information Care Team Personnel Name: Doc Acharya MD Position: [facility] Physician - Primary Care Member Role: PCP Address: Address: [address] [place] [address]- Care Team Related Persons Name: CHRIS BAEZ Name: STELLA BAEZ Address: home [address] [place] [address]
--- OUTSIDE RECORDS SUMMARY | 2023-09-30 21:25 | XMS_ITS | Continuity of Care Document ---
Author Organization [facility] Address [address] [place] [address]- Care Team Providers Care Academic Computing Director Name Role Phone Doc Acharya MD Primary Care Physician [facility] Date(s): 07/01/23 - 07/31/23 [facility] [address] [place] [address]- [place] Allergies, Adverse Reactions, Alerts Substance Reaction Severity [...] 11/18/13 Brent rded influenza virus vaccine, inactivated 11/18/13 Re corded influenza virus vaccine, inactivated 12/21/12 Gi zakiya [id number] bivalent booster vax 12/16/21 Recorded SARS-CoV-2 mRNA (fkbeddn-kdyv-ukmai) vax 6 12/04/21 Recorded SARS-CoV-2 (COVID-19) mRNA-1273 vaccine 01/28/21 R ecorded SARS-CoV-2 (COVID-19) mRNA-1273 vaccine 05/29/20 G iven SARS-CoV-2 (COVID-19) mRNA-1273 vaccine 05/01/20 G iven pneumococcal 23-valent vaccine 9/18/20 Given pneumococcal 13-valent vaccine 09/27/18 Given tetanus/diphtheria/pertussis, acel(Tdap) 09/25/14 Given FluLaval (oldterm) 7 11/12/11 Given FluLaval (oldterm) 8 02/15/11 Given influ virus vac, H1N1, inactive(oldterm) 11/27/09 Given Influenza Virus Vaccine (oldterm) 9 02/04/09 Given Influenza Virus Vaccine (oldterm) 01/05/08 Given Influenza Inactive (IM) (oldterm) 10 12/22/05 Give n tetanus-diphtheria toxoids (Td) 12/09/05 Given tetanus-diphtheria toxoids (Td) 02/29/96 Given 1Result Comment: [id number] Checklist done 2Result Comment: [facility]# [id number] 3Result Comment: [02/18/2017] [facility]:[id number] 4Location History: [facility] 5Admin Note: [facility] 6Result Comment: booster 7Admin Note: [employer] 8Admin Note: [employer] 9Admin Note: per pt rcvd [facility] 10Admin Note: clinic [facility] Medications hydrocortisone 2.5% topical cream See Instructions, APPLY TOPICALLY TO AFFECTED AREA THREE TIMES A DAY, # 28 Gm, 6 Refills, Maintenance, 06/14/22 10:25:00 EDT, [facility], 15, APPLY TOPICALLY TO AFFECTED AREA THREE TIMES A DAY, 168, cm, 05/18/22 12:13:00 EDT, Height, 98, kg,... Start Date: 06/14/22 Status: Ordered levothyroxine 0.088 mg oral tablet 1 tablet, By Mouth, Daily, # 90 tablet, 3 Refills, Maintenance, 11/18/22 13:51:00 EDT, [facility], 168, cm, 10/21/22 6:56:00 EDT, Height, 98, kg, 11/29/21 14:21:00 EDT, Dry Weight Start Date: 11/18/22 Status: Ordered Nystop 466014 u/gm powder See Instructions, APPLY TOPICALLY TWO [...] Confirmed Active 1Colonoscopy 2013 normal, repeat 2023. 55440 negative repeat 2013 3egd 2008 negative barretts 4[place] by [place] [facility] [place] Social History Social History Type Response Smoking Status Never smoker entered on: 03/26/13 Sex Patient Care team information Care Team Personnel Name: Doc Acharya MD Position: S Physician - Primary Care Member Role: PCP Address: Address: [address] [place] [address]- Care Team Related Persons Name: CHRIS BAEZ Name: STELLA BAEZ Address: home [address] [place] [address]
--- OUTSIDE RECORDS SUMMARY | 2023-09-30 21:25 | XMS_ITS | Continuity of Care Document ---
Author Organization [facility] Address [address] [place] [address]- Care Team Providers Care Clinic Lead Name Role Phone Patrizia DOWNING, Doc Calzada Primary Care Physician [facility] 07[facility]23 - 07/08/23 [facility] Adult [address] [place] [address]- Encounter Diagnosis Cricopharyngeal achalasia(Discharge Diagnosis) - 07/01/23 Rash(Discharge Diagnosis) - 07/01/23 Attending Physician: Yisel Lyons Allergies, Adverse Reactions, Alerts [...] virus vaccine, inactivated 5 12/21/12 Gi zakiya [id number] bivalent booster vax 12/16/21 Recorded SARS-CoV-2 mRNA (shreodm-muiq-gnljf) vax 6 12/04/21 Recorded SARS-CoV-2 (COVID-19) mRNA-1273 [...] tetanus-diphtheria toxoids (Td) 02/29/96 Given 1Result Comment: [id number] Checklist done 2Result Comment: [facility]# [id number] 3Result Comment: [02/18/2017] [facility]:[id number] 4Location History: [facility] 5Admin Note: [facility] 6Result Comment: booster 7Admin Note: [employer] 8Admin Note: [facility] 9Admin Note: per pt rcvd [facility] 10Admin Note: clinic [facility] Medications hydrocortisone 2.5% topical cream See Instructions, APPLY TOPICALLY TO AFFECTED AREA THREE TIMES A DAY, # 28 Gm, 6 Refills, Maintenance, 06/14/22 10:25:00 EDT, [facility], 15, APPLY TOPICALLY TO AFFECTED AREA THREE TIMES A DAY, 168, cm, 05/18/22 12:13:00 EDT, Height, 98, kg,... Start Date: 06/14/22 Status: Ordered levothyroxine 0.088 mg oral tablet 1 tablet, By Mouth, Daily, # 90 tablet, 3 Refills, Maintenance, 11/18/22 13:51:00 EDT, [facility], 168, cm, 10/21/22 6:56:00 EDT, Height, 98, kg, 11/29/21 14:21:00 EDT, Dry Weight Start Date: 11/18/22 Status: Ordered nystatin topical 512923 u/gm powder 1 application, Topically, 2 times [...] normal, repeat 2023. negative repeat 2013 3egd 2008 negative barretts 4noted by ct scan done at [facility] [place] 2009 Diagnosis Diagnosis Type Effective Dates Health Status Clinical Service Informant Cricopharyngeal achalasia Discharge Diagnosis 07/01/23 Rash Discharge Diagnosis 07/01/23 Vital Signs Most recent to oldest [Reference Range]: 1 Height 167.64 cm (07/01/23 10:48 AM) Weight 99.8 kg (07/01/23 10:48 AM) Oxygen Saturation [94-100 %] 96 % (07/01/23 10:48 AM) Pulse Rate [55-90 bpm] 68 bpm (07/01/23 10:48 AM) Body Mass Index [18.5-24.99 kg/m2] 35.51 kg/m2 *>HHI* (07/01/23 10:48 AM) Blood Pressure [90-138/55-84 mm Hg] 102/ 66mm Hg (07/01/23 10:48 AM) Temperature [96.8-100.4 DegF] 98.7 DegF (07/01/23 10:48 AM) Mode of Delivery (Oxygen) Room air (07/01/23 10:48 AM) Blood pressure sites Arm, right (07/01/23 10:48 AM) Temperature Route Oral (07/01/23 10:48 AM) Weight Obtained Via Standing scale (07/01/23 10:48 AM) Social History Social History Type Response Smoking Status Never smoker entered on: 03/26/13 Sex Note * Megit , Krys: PERFORM, SIGN, VERIFY Event Display: Patient Education/Instruction Authored Date: [id number] [facility] *NIRMAL Delacruz Clinical Summary Name BING SKELTON Age 67 Years 1955 PCP Patrizia DOWNING, Doc Calzada PCP Visit Date 07/01/2023 10:36:00 Additional Instructions: Scheduled Appointments?? Future Appointments ?No Future Appointments Scheduled Follow-Up Instructions ?? Diagnosis Unspecified hemorrhoids; Achalasia of cardia; Rash and other nonspecific skin eruption Medications: Please continue your medications until treatment is completed or stopped by your provider. Discuss any questions related to medications with your provider. New Medications [facility], [address], [place] [id number], [phone] Nystatin Topical (nystatin topical 965694 u/gm powder) 1 preeti Topically twice a day for 14 Days. Refills: 0. Next Dose: Medications to Continue with No Changes These medications were not printed or sent to your pharmacy Hydrocortisone Topical (hydrocortisone 2.5% topical cream) APPLY TOPICALLY TO AFFECTED AREA THREE TIMES A DAY. Refills: 6. Next Dose: Levothyroxine (levothyroxine 0.088 mg oral tablet) 1 tab(s) Oral Daily. Refills: 3. Next Dose: Allergy Info:?? Latex; Novocain; epinephrine Medications Given This Visit Future Orders ?No future orders Future Orders ?No future orders Vital Signs Height 167.64 cm Weight 99.8 kg BMI 35.51 kg/m2 Blood Pressure 102 mm Hg/66 mm Hg Temperature 98.7 DegF Pulse Rate 68 bpm Respiratory Rate 02 Sat Mode of Delivery 96 %/Room air You can now view a summary of your hospital visit from the comfort of your home through a free online portal called [employer] [facility]. [employer] is a website that allows you to securely view your medical information including discharge summary, medications and follow-up visits. ??You can alsosend a secure electronic message to your doctor???s office to request appointments, renew medications or just ask a question. You can enroll at [email or web address] or register during your next office visit. [...] primary care provider, you may find a [facility] provider by calling [facility] Link at [phone]. [facility], in keeping with [facility] guidance, no longer requires face masks for staff, patientsor visitors in most situations. Similar to time spent indoors at other locations, there is the chance that you were exposed to respiratory viruses during your time with us (such as flu or COVID-19).? If you develop symptoms concerning for a viral respiratory infection, please seek testing (and treatment if indicated) from your medical provider or home test kit. For information about the plan of care [...] Personnel Name: Patrizia DOWNING, Doc Calzada Position: [facility] Physician - Primary Care Member Role: PCP Address: Address: [address] [place] [address]- Care Team Related Persons Name: CHRIS BAEZ Name: STELLA BAEZ Address: [address] [address]
--- OUTSIDE RECORDS SUMMARY | 2023-09-30 21:25 | XMS_ITS | Continuity of Care Document ---
Author Organization [facility] ter Address [address] [place] [address]- Care Team Providers Care Wharfinger Chief Name Role Phone Doc Acharya MD Primary Care Physician [facility]22 - 12/21/[address] [address] Discharge Disposition: A-D/C Home Attending Physician: Jacquelin Palmer MD Admitting Physician: Jacquelin Palmer MD Referring Physician: Jacquelin Palmer MD Allergies, Adverse Reactions, Alerts Substance Reaction Severity Status epinephrine increaased heart rate and rapid breathing Active Novocain heavy breathing Active Latex rash Active Immunizations Given and Recorded Vaccine Date Status Refusal Reason SARS-CoV-2 mRNA (bdluzri-tyev-pjsbc) vax 1 12/04/21 Recorded influenza virus vaccine, [...] booster 2Result Comment: [facility]# [id number] 3Result Comment: [02/18/2017] [facility]:[id number] 4Location History: [facility] 5Admin Note: [facility] 6Admin Note: [employer] [facility] 7Admin Note: [employer] [facility] 8Admin Note: per pt rcvd [facility] 9Admin Note: [facility] Medications hydrocortisone 2.5% topical cream See Instructions, APPLY TOPICALLY TO AFFECTED AREA THREE TIMES A DAY, # 28 Gm, 6 Refills, Maintenance, 06/14/22 10:25:00 EDT, [facility] # [facility], 15, APPLY TOPICALLY TO AFFECTED AREA THREE TIMES A DAY, 168, cm, 05/18/22 12:13:00 EDT, Height, 98, kg,... Start Date: 06/14/22 Status: Ordered levothyroxine 0.088 mg oral tablet 1 tablet, By Mouth, Daily, # 90 tablet, 3 Refills, Maintenance, 11/18/22 13:51:00 EDT, [facility] # [facility], 168, cm, 10/21/22 6:56:00 [...] barretts 4noted by ct scan done at [facility] 2009 Vital Signs Most recent to oldest [Reference Range]: 1 2 3 Height 167.64 cm (12/21/22 7:38 AM) 167.64 cm (12/20/22 10:00 AM) Weight 98.4 kg (12/21/22 7:38 AM) 97.73 kg (12/20/22 10:00 AM) Oxygen Saturation [94-100 %] 94 % (12/21/22 9:45 AM) 94 % (12/21/22 9:30 AM) 94 % (12/21/22 9:15 AM) Pulse Rate [55-90 bpm] 82 bpm (12/21/22 7:38 AM) Body Mass Index [18.5-24.99 kg/m2] 35.01 kg/m2 *>HHI* (12/21/22 7:38 AM) 34.78 kg/m2 *>HHI* (12/20/22 10:00 AM) Blood Pressure [90-138/55-84 mm Hg] 130/69mm Hg (12/21/22 9:30 AM) 124/79mm Hg (12/21/22 9:15 AM) 133/66mm Hg (12/21/22 7:38 AM) Respiratory Rate [16-30 br/min] 17 br/min (12/21/22 9:30 AM) 19 br/min (12/21/22 9:15 AM) 18 br/min (12/21/22 7:38 AM) Temperature [96.8-100.4 DegF] 97.5 DegF (12/21/22 9:15 AM) 97.8 DegF (12/21/22 7:38 AM) Mode of Delivery (Oxygen) Room air (12/21/22 9:45 AM) Room air (12/21/22 9:15 AM) Room air (12/21/22 7:38 AM) Blood pressure sites Arm, left (12/21/22 9:15 AM) Arm, right (12/21/22 7:38 AM) Temperature Route Temporal (12/21/22 9:15 AM) Temporal (12/21/22 7:38 AM) Dry Weight 98.4 kg (12/21/22 7:38 AM) 97.73 kg (12/20/22 10:00 AM) Weight Obtained Via Standing scale (12/21/22 7:38 AM) Patient/family stated (12/20/22 10:00 AM) Dry Weight Obtained Via Standing scale (12/21/22 7:38 AM) Patient/family stated (12/20/22 10:00 AM) Social History Social History Type Response Smoking Status Never smoker entered on: 03/26/13 Sex History and physical note * Event Display: History and Physical Hospital Authored Date: [id number] Note * Tania Palma RN: PERFORM Event Display: Discharge/Transfer Note Hospital Authored Date: [id number] Nursing Discharge Note Entered On: 12/21/2022 10:38 EDT Performed On: 12/21/2022 10:38 EDT by Tania Palma RN Nursing Discharge Note 2 Discharge Time : 12/21/2022 10:35 EDT Discharge Level of Care at Discharge : Home/[facility] Care Patient Left Unit Via : Wheelchair Patient Accompanied Off Unit with : Significant other DC Instructions Provided & Signed by Pt : Yes Patient Understands D/C Instructions : Yes Verbalized Understanding of D/C Plan By : Patient Patient Instructions Discharge Signed : Yes Did Pt have Specialty Bed or Wound Vac : No Tania Palma RN - 12/21/2022 10:38 EDT * Tania Palma RN: PERFORM, MODIFY Event Display: Patient Education/Instruction Authored Date: [id number] Inpatient Adult Discharge Instructions [address] [address] Name: ANTONIA CASTRO LOUANNMaddie SASHA : 1955 Visit: 12/21/2022 07:11:00 Current Date: 12/21/2022 09:34 Account: [id number] Inpatient Adult Discharge Instructions We would like to thank you for allowing us to assist you with your healthcare needs. The following includes patient education materials and information regarding your injury/illness. Our entire staffstrives to provide an excellent experience for our patients and their families. PLEASE ENSURE YOU FOLLOW-UP PER THE INSTRUCTIONS BELOW! ?? YOUR OPINION IS IMPORTANT TO US! Please complete the survey you may receive by mail or email. Your feedback will be used to make improvements to the healthcare experiences of our patients and their families. Surveys are administered by [employer]. ?? If further treatment with your primary care physician or another doctor is recommended, it is important for you to keep the appointment. Call your primary care physician or return to the Emergency Department immediately if your condition worsens, fails to improve, or new symptoms develop. If you need to find a doctor, you can call [facility] for a referral at [phone] or toll free at [phone] ([phone]) or log in to [email or web address].. ?? [facility], in keeping with [facility] guidance, no longer requires face masks for staff, patientsor visitors in most situations. Similiar to time spent indoors at other locations, there is the chance that you were exposed to repiratory viruses during your time with us (such as flu or COVID-19). If you develop symptoms concerning for a viral respiratory infection, please seek testing (and treatment if indicated) from your medical provider or home test kit. ?? You can view and manage your care through the patient portal or by using a health care preeti of your choosing. [employer] is a website that allows you to securely view your medical information including your hospital discharge summary, office visit summaries, medications and follow-up visits. You can also request appointments, renew medications, and request access to your medical information using a health care preeti of your choosing, or just ask a question. You can enroll at [email or web address] or register during your next office visit. You have been discharged from [facility], Patient Care Unit: [facility]. If you have any questions regarding these instructions after you leave, please call us and we will be happy to assist you. [facility] Your Care Team Attending Physician Estela DOWNING, Jacquelin Discharging Providers Luis DOWNING, Jacquelin Benavides Reason for Admission POSTMENOPAUSAL BLEEDINGCS DS Tests Performed Below is a partial list of the tests performed during your hospitalization. You may have had other tests and procedures not included in this list. Please discuss all test results with your provider. Primary Care Provider Doc Acharya MD Advance Directive Health Care Proxy on File Yes - Health Care Proxy Discharge Vitals Temperature: 97.5 DegF Height: 167.64 cm Pulse Rate: 82 bpm Weight: 98.4 kg Respiratory Rate: 17 br/min Body Mass Index:??35.01 kg/m2??Critical Systolic Blood Pressure: 130 mm Hg Body surface area: 2.14 Diastolic Blood Pressure: 69 mm Hg ?? Oxygen Saturation:??91 %??Low ?? Studies Pending All tests and labs ordered during this hospital stay have been completed unless listed below. Please discuss all pending results with your provider listed above in these instructions. ?? No incomplete studies found What to do next Instructions From Your Doctor Discharge Orders Scheduled Follow-Up Appointments Tuesday 9:30 AM EST ?? With: Doc Acharya MD Where: [address] [address]- Status: Pending You Need to Schedule the Following Appointments Follow Up with??Jacquelin Palmer Where: [address] [place] [address] [address] [facility] [employer] [place] [address]- [facility] (1) Follow Up with??Doc Acharya When:??In 0 days Discharge Medications FRANCISCO JAVIERANTONIA YOO :1955 Visit Date:12/21/2022 Medications: Please continue your medications until treatment is completed or stopped by your provider. Medications not listed below should be discontinued. Discuss any questions related to medications with your provider. What How Much When Instructions Next Dose Unchanged Hydrocortisone Topical (hydrocortisone 2.5% topical cream) See instructions APPLY TOPICALLY TO AFFECTED AREA THREE TIMES A DAY ?? Unchanged Levothyroxine (levothyroxine 0.088 mg oral tablet) 1 tab(s) Oral Daily Allergies (NKA means No Known Allergies) Latex??(rash) Novocain??(heavy breathing) epinephrine??(increaased heart rate and rapid breathing) Valuables and Belongings I fully understand and agree that [facility] accepts no responsibility for all my personal property including clothing, toilet articles, radios, jewelry, dentures, hearing aids, rings, money, or any other property that is in my possession or is brought to me after admission. I understand certain valuables may be placed in a hospital safe for a short period of time. I understand that the hospital is not liable for loss or damage due to accident, fire, or other natural occurrence while said property is in the safe. I accept full responsibility for any personal property that I keep with me, and will not hold the hospital responsible in case of loss or disappearance. I acknowledge that i have been encouraged to send valuables and belongings home. ?? Review of Valuable and Belonging List: With patient, With family Date for Pt to Sign Valuables/Belongings: 12/21/22 07:38:00 ?? Valuables & Belongings ?? Clothes Electronic devices Jewelry Monetary Items Personal devices Miscellaneous Medications (Valuables) Valuables at Bedside Jacket, Pants, Shirt, Shoes, Undergarments ? Valuables Sent Home ? Purse ? Valuables Sent to Security ? Common Emergency Awareness Tips IS IT A STROKE? Act FAST and Check for these signs: FACE Does the face look uneven? ARM Does one arm drift down? SPEECH Does their speech sound strange? TIME Call at any sign of stroke ?? Heart Attack Signs Chest discomfort: Most heart attacks involve discomfort in the center of the chest and lasts more than a few minutes, or goes away and comes back. It can feel like uncomfortable pressure, squeezing, fullness or pain. Discomfort in upper body: Symptoms can include pain or discomfort in one or both arms, back, neck, jaw or stomach. Shortness of breath: With or without discomfort. Other signs: Breaking out in a cold sweat, nausea, or lightheaded. Remember, MINUTES DO MATTER. If you experience any of these heart attack warning signs, call to get immediate medical attention! ?? Smoking can increase your chances of developing chronic health problems and can cause harmful effects to other family members in your house. If you smoke, you are strongly encouraged to quit. Please call [facility] at [phone] or [phone] ([phone]) or log in to [email or web address] for referrals to smoking cessation programs. ?? 849 Suicide & Crisis Lifeline is available 20/09 if you or someone you know needs to find a reason to keep living. By calling 775 you'll be connected to a skilled, trained counselor at a crisis center in your area. INPATIENT DISCHARGE INSTRUCTIONS SIGNATURE PAGE BRIGITTE BAEZANTONIA Location:[facility] Registration Date and Time:12/21/2022 07:11 EDT Primary Care Physician: Doc Acharya MD, Attending Physician: Jacquelin Palmer MD, I ANTONIA SKELTON, have received the above patient education materials/instructions and have verbalized understanding. If ambulance or transport services are being used I further acknowledge being given a choice of service. ?? If you need to contact me, please call me at this number: CIS . Patient/Supervisor Drying Name: Antonia Pierceth Louannmaddie Sasha Patient/Supervisor Drying Signature: Relationship to Patient: Patient Witness Name/Signature: Date: 12/21/2022 * Tania Palma RN: VERIFY, PERFORM, SIGN Event Display: Patient Education Handout Authored Date: [id number] * Tania Palma RN: PERFORM Event Display: Patient Education Leaflets Authored Date: Surgery Medical Daystay Surgical Overnight Discharge Instructions ?? 295 Medical Daystay/Surgical Overnight Discharge Instructions ? Since your coordination and judgment may be altered by medication and/or anesthesia, a responsible adult must drive you home from the hospital. ? If you have received medication for pain or sedation while under our care, you should not drive, operate machinery, drink alcohol, or sign any legal documents for 24 hours.?? You should have someone with you at home tonight. ? Remain at home the day of discharge.?? You may be up and about unless otherwise instructed by your physician. ? You may resume your daily prescription medication schedule.?? Any depressant medication should be avoided for 24 hours unless otherwise instructed by your surgeon or anesthesiologist. ? Call your physician for a follow-up appointment.? If you experience unusual or severe pain not relied by your pain medication, excessive bleedingor drainage, persistent nausea and vomiting, excessive swelling or redness, foul odor from incisionsite or fever over 100.6F, you need to call your physician. ? A follow-up phone call by a nurse will be made the day after your procedure.?? If you have stayed with us over night, you will not be receiving a follow-up phone call. ? Nausea and vomiting are a common side effect of prescription pain medication.?? We recommend that pills are not taken on an empty stomach.?? While taking any prescription pain medication you should not drive or drink alcohol. ? Patient Care team information Care Team Personnel Name: Patrizia DOWNING, Doc Calzada Position: [facility] Physician - Primary Care Member Role: PCP Address: Address: [address] [place] [address]- Care Team Related Persons Name: CHRIS BAEZ Name: STELLA BAEZ Address: home [address] [place] [id number]
--- OUTSIDE RECORDS SUMMARY | 2023-09-30 21:25 | XMS_ITS | Continuity of Care Document ---
Author Organization [facility] Address [address] [place] [address]- Care Team Providers Care Soaping Department Supervisor Name Role Phone Patrizia DOWNING, Doc Calzada Primary Care Physician [facility]s): 11/22/19 - 12/22/19 [facility] Adult [address] [place] [address]- [facility] Allergies, Adverse Reactions, Alerts Substance Reaction Severity Status epinephrine Active Novocain heavy breathing Active Immunizations Given and Recorded Vaccine Date Status Refusal Reason influenza virus vaccine, inactivated 12/07/19 Give n [...] toxoids (Td) 02/29/96 Given 1Result Comment: [02/18/2017] [facility]:[id number] 2Location History: [facility] 3Admin Note: [facility] 4Admin Note: [employer] 5Admin Note: [facility] 6Admin Note: per pt rcvd [facility]where 7Admin Note: [facility] Medications Levoxyl 0.075 mg oral tablet 1 tablet = 75 mcg, By Mouth, Daily, # 90 tablet, 1 Refills, Maintenance, 11/22/19 9:01:00 EDT, Tablet, [id number], 170, cm, 11/16/19 14:09:00 EDT, Height Start Date: 11/22/19 Status: Ordered Problem List Condition Effective Dates [...] barretts 4noted by ct scan done at [facility] 2009 Social History Social History Type Response Smoking Status Never smoker entered on: 03/26/13 Sex
--- OUTSIDE RECORDS SUMMARY | 2023-09-30 21:25 | XMS_ITS | Continuity of Care Document ---
Author Organization [facility] Address [address] [place] [address]- Care Team Providers Care Supervisor Stage Carpentry Name Role Phone Doc Acharya MD Primary Care Physician Encounter [facility] Date(s): 07/22/22 - 08/27/22 [facility] Adult [address] [place] [address]- Attending Physician: Lori Cuellar Referring Physician: Doc Acharya MD Allergies, Adverse Reactions, Alerts Substance Reaction Severity Status epinephrine Active Novocain heavy breathing Active Latex Active Immunizations Given and Recorded Vaccine Date Status Refusal Reason SARS-CoV-2 mRNA (cyprryy-fuvc-ypjnq) vax 1 12/04/21 Recorded influenza virus vaccine, [...] Given 1Result Comment: booster 2Result Comment: [facility]# [id number] 3Result Comment: [02/18/2017] [facility]:[id number] 4Location [facility]: [facility] 5Admin Note: [facility] 6Admin Note: [employer] 7Admin Note: [employer] 8Admin Note: per pt rcvd [facility] 9Admin Note: [facility] Medications hydrocortisone 2.5% topical cream See Instructions, APPLY TOPICALLY TO AFFECTED AREA THREE TIMES A DAY, # 28 Gm, 6 Refills, Maintenance, 06/14/22 10:25:00 EDT, [facility], 15, APPLY TOPICALLY TO AFFECTED AREA THREE TIMES A DAY, 168, cm, 05/18/22 12:13:00 EDT, Height, 98, kg,... Start Date: 06/14/22 Status: Ordered levothyroxine 0.088 mg oral tablet 1 tablet, By Mouth, Daily, # 30 tablet, 5 Refills, Maintenance, 04/13/22 6:31:00 EST, [facility], 168, cm, 01/06/22 13:21:00 [...] barretts 4noted by ct scan done at [facility] 2009 Vital Signs Most recent to oldest [Reference Range]: 1 Height 168 cm (07/28/22 1:55 PM) Weight 97.9 kg (07/28/22 1:55 PM) Oxygen Saturation [94-100 %] 97 % (07/28/22 1:55 PM) Pulse Rate [55-90 bpm] 96 bpm *H* (07/28/22 1:55 PM) Body Mass Index [18.5-24.99 kg/m2] 34.69 kg/m2 *>HHI* (07/28/22 1:55 PM) Blood Pressure [90-138/55-84 mm Hg] 106/ 70mm Hg (07/28/22 1:55 PM) Temperature [96.8-100.4 DegF] 97.8 DegF (07/28/22 1:55 PM) Mode of Delivery (Oxygen) Room air (07/28/22 1:55 PM) Blood pressure sites Arm, left (07/28/22 1:55 PM) Temperature Route Temporal (07/28/22 1:55 PM) Social History Social History Type Response Smoking Status Never smoker entered on: 03/26/13 Sex Patient Care team information Care Team Personnel Name: Doc Acharya MD Position: S Physician - Primary Care Member Role: PCP Address: Address: [address] [place] [address]- Care Team Related Persons Name: CHRIS BAEZ Name: STELLA BAEZ Address: home [address] [place] [id number]
--- OUTSIDE RECORDS SUMMARY | 2023-09-30 21:25 | XMS_ITS | Continuity of Care Document ---
Author Organization [facility] Address [address] [place] [address]- Care Team Providers Care Insulation Supervisor Name Role Phone Doc Acharya MD Primary Care Physician [phone] [facility]20 - 04/22/20 [facility] [place] Adult [address] [place] [address]- Attending Physician: Dru GALVAN, Michelle Henderson Allergies, Adverse Reactions, Alerts Substance Reaction Severity [...] (Td) 02/29/96 Given 1Result Comment: [02/18/2017] [facility]:[id number] 2Location History: [facility] 3Admin Note: [facility] 4Admin Note: [employer] 5Admin Note: [employer] 6Admin Note: per pt rcvd [facility]where 7Admin [...] barretts 4noted by ct scan done [place] [facility] 2009 Social History Social History Type Response Smoking Status Never smoker entered on: 03/26/13 Sex
--- OUTSIDE RECORDS SUMMARY | 2023-09-30 21:25 | XMS_ITS | Continuity of Care Document ---
Author Organization [facility] Address [address] [place] [address]- Care Team Providers Care Accountant Cost Name Role Phone Patrizia DOWNING, Doc Calzada Primary Care Physician [facility]): 06[facility]30/21 - 07/30/21 [facility] Adult [address] [place] [address]- Allergies, Adverse Reactions, Alerts Substance Reaction Severity [...] toxoids (Td) 02/29/96 Given 1Result Comment: [02/18/2017] [facility]:[id number] 2Location History: [facility] 3Admin Note: [facility] 4Admin Note: [employer] 5Admin Note: [employer] 6Admin Note: per pt rcvd [facility]where 7Admin Note: [facility] Medications estradiol 0.1 mg/g vaginal cream See Instructions, INSERT 1 GRAM VAGINALLY ONCE DAILY AT BEDTIME FOR 1 MONTH, THEN REDUCE TO TWICE WEEKLY THERAFTER., # 42.5 Gm, 0 Refills, [facility], 170, cm, 07/14/21 10:38:00 EDT, Height Start Date: 07/28/21 Status: Ordered levothyroxine 0.088 mg oral tablet See Instructions, TAKE ONE TABLET BY MOUTH EVERY DAY, # 30 tablet, 2 Refills, [facility], 170, cm, 05/07/21 8:11:00 [...] barretts 4noted by ct [place] [facility] [place] Social History Social History Type Response Smoking Status Never smoker entered on: 03/26/13 Sex
--- OUTSIDE RECORDS SUMMARY | 2023-09-30 21:25 | XMS_ITS | Continuity of Care Document ---
Author Organization [facility] Address [address] [place] [address]- Care Team Providers Care Hat Liner Name Role Phone Doc Acharya MD Primary Care Physician Encounter [facility] Date(s): 08/03/23 - 08/10/23 [facility] Adult [address] [place] [address]- Encounter Diagnosis UTI symptoms(Discharge Diagnosis) - 08/03/23 Attending Physician: Jimmie SMITH-PROGRAM DIRECTOR/AIR PERSONALITY-CAnne Referring Physician: Doc Acharya MD Allergies, Adverse [...] virus vaccine, inactivated 5 12/21/12 Gi zakiya [id number] bivalent booster vax 12/16/21 Recorded SARS-CoV-2 mRNA (oqyzkvt-rnzg-vbxpy) vax 6 12/04/21 Recorded SARS-CoV-2 (COVID-19) mRNA-1273 [...] tetanus-diphtheria toxoids (Td) 02/29/96 Given 1Result Comment: [id number] Checklist done 2Result Comment: [facility]# [id number] 3Result Comment: [02/18/2017] [facility]:[id number] 4Location History: [facility] 5Admin Note: [facility] 6Result Comment: booster 7Admin Note: [employer] 8Admin Note: [employer] 9Admin Note: per pt rcvd [facility] 10Admin Note: [facility] Medications hydrocortisone 2.5% topical cream See Instructions, APPLY TOPICALLY TO AFFECTED AREA THREE TIMES A DAY, # 28 Gm, 6 Refills, Maintenance, 06/14/22 10:25:00 EDT, [facility], 15, APPLY TOPICALLY TO AFFECTED AREA THREE TIMES A DAY, 168, cm, 05/18/22 12:13:00 EDT, Height, 98, kg,... Start Date: 06/14/22 Status: Ordered levothyroxine 0.088 mg oral tablet 1 tablet, By Mouth, Daily, # 90 tablet, 3 Refills, Maintenance, 11/18/22 13:51:00 EDT, [facility], 168, cm, 10/21/22 6:56:00 EDT, Height, 98, kg, 11/29/21 14:21:00 EDT, Dry Weight Start Date: 11/18/22 Status: Ordered Nystop [id number] u/gm powder See Instructions, APPLY TOPICALLY TWO [...] Vertigo Confirmed Active 1Colonoscopy 2013 normal, repeat 4. 41337 negative repeat 2013 3egd 2008 negative barretts 4noted by ct scan done at [facility] 2009 Diagnosis Diagnosis Type Effective Dates Health Status Cl inical Service Informant UTI symptoms Discharge Diagnosis 08/03/23 Vital Signs Most recent to oldest [Reference Range]: 1 Height 167.64 cm (08/03/23 11:20 AM) Social History Social History Type Response Smoking Status Never smoker entered on: 03/26/13 Sex Patient Care team information Care Team Personnel Name: Doc Acharya MD Position: [facility] Physician - Primary Care Member Role: PCP Address: Address: [address] [place] [address]- Care Team Related Persons Name: CHRIS BAEZ Name: STELLA BAEZ Address: home [address] [place] [id number]
--- OUTSIDE RECORDS SUMMARY | 2023-09-30 21:25 | XMS_ITS | Continuity of Care Document ---
Author Organization [facility] ter Address [address] [place] [address]- Care Team Providers Care Director Economic Name Role Phone Patrizia DOWNING, Doc Calzada Primary Care Physician [facility] Date[facility]s): 10/[facility]/22 - 11/21/[address] [address] Attending Physician: Jacquelin Palmer MD Admitting Physician: Jacquelin Palmer MD Allergies, Adverse Reactions, Alerts Substance Reaction Severity Status epinephrine Active Novocain heavy breathing Active Latex Active Immunizations Given and Recorded Vaccine Date Status Refusal Reason SARS-CoV-2 mRNA (sssnfbz-jmmc-ejuft) vax 1 12/04/21 Recorded influenza virus vaccine, [...] Given 1Result Comment: booster 2Result Comment: HD [facility]# [id number] 3Result Comment: [02/18/2017] [facility]:[id number] 4[facility] History: [facility] 5Admin Note: [facility] 6Admin Note: Satya [employer]i [employer] 7Admin Note: Satya [employer]i [employer] 8Admin Note: per pt rcvd eklsewhere 9Admin Note: clinic ariel Medications hydrocortisone 2.5% topical cream See Instructions, APPLY TOPICALLY TO AFFECTED AREA THREE TIMES A DAY, # 28 Gm, 6 Refills, Maintenance, 06/14/22 10:25:00 EDT, [facility], 15, APPLY TOPICALLY TO AFFECTED AREA THREE TIMES A DAY, 168, cm, 05/18/22 12:13:00 EDT, Height, 98, kg,... Start Date: 06/14/22 Status: Ordered levothyroxine 0.088 mg oral tablet 1 tablet, By Mouth, Daily, # 90 tablet, 3 Refills, Maintenance, 11/18/22 13:51:00 EDT, [facility], 168, cm, 10/21/22 6:56:00 [...] barretts 4noted by ct scan done at [facility] [place] 2009 Social History Social History Type Response Smoking Status Never smoker entered on: 03/26/13 Sex Patient Care team information Care Team Personnel Name: Doc Acharya MD Position: [facility] Physician - Primary Care Member Role: PCP Address: Address: [address] [place] [address]- Care Team Related Persons Name: CHRIS BAEZ Name: STELLA BAEZ Address: home [address] [place] [address]
--- OUTSIDE RECORDS SUMMARY | 2023-09-30 21:25 | XMS_ITS | Continuity of Care Document ---
Author Organization [facility] Cecil lt Address [address] [place] [address]- Care Team Providers Care President Ceo & Founder Name Role Phone Doc Acharya MD Primary Care Physician [phone] Encounter [facility] Date(s): 05/09/23 - 05/16/23 [facility] Adult [address] [place] [address]- Encounter Diagnosis Thumb pain(Discharge Diagnosis) - 05/09/23 Attending Physician: Yisel Lyons Allergies, Adverse Reactions, [...] virus vaccine, inactivated 5 12/21/12 Gi zakiya [id number] bivalent booster vax 12/16/21 Recorded SARS-CoV-2 mRNA (zcbftjr-dauk-onppt) vax 6 12/04/21 Recorded SARS-CoV-2 (COVID-19) mRNA-1273 [...] tetanus-diphtheria toxoids (Td) 02/29/96 Given 1Result Comment: [id number] Checklist done 2Result Comment: [facility]# [id number] 3Result Comment: [02/18/2017] [facility]:[id number] 4Location History: [facility] 5Admin Note: [facility] 6Result Comment: booster 7Admin Note: [employer] 8Admin Note: [employer] 9Admin Note: per pt rcvd eklsewhere 10Admin Note: clinic ariel Medications hydrocortisone 2.5% topical cream See Instructions, APPLY TOPICALLY TO AFFECTED AREA THREE TIMES A DAY, # 28 Gm, 6 Refills, Maintenance, 06/14/22 10:25:00 EDT, [facility], 15, APPLY TOPICALLY TO AFFECTED AREA THREE TIMES A DAY, 168, cm, 05/18/22 12:13:00 EDT, Height, 98, kg,... Start Date: 06/14/22 Status: Ordered levothyroxine 0.088 mg oral tablet 1 tablet, By Mouth, Daily, # 90 tablet, 3 Refills, Maintenance, 11/18/22 13:51:00 EDT, [facility], 168, cm, 10/21/22 6:56:00 [...] 1Colonoscopy 2013 normal, repeat negative repeat 2013 negative barretts 4noted by ct scan done [place] [facility] [place] Diagnosis Diagnosis Type Effective Dates Health Status Clini freida Service Informant Thumb pain Discharge Diagnosis 05/09/23 Vital Signs Most recent to oldest [Reference Range]: 1 Height 167.64 cm (05/09/23 8:25 AM) Weight 99.1 kg (05/09/23 8:25 AM) Oxygen Saturation [94-100 %] 98 % (05/09/23 8:25 AM) Pulse Rate [55-90 bpm] 73 bpm (05/09/23 8:25 AM) Body Mass Index [18.5-24.99 kg/m2] 35.26 kg/m2 *>HHI* (05/09/23 8:25 AM) Blood Pressure [90-138/55-84 mm Hg] 116/ 62mm Hg (05/09/23 8:25 AM) Temperature [96.8-100.4 DegF] 97.6 DegF (05/09/23 8:25 AM) Mode of Delivery (Oxygen) Room air (05/09/23 8:25 AM) Blood pressure sites Arm, left (05/09/23 8:25 AM) Temperature Route Oral (05/09/23 8:25 AM) Weight Obtained Via Standing scale (05/09/23 8:25 AM) Social History Social History Type Response Smoking Status Never smoker entered on: 03/26/13 Sex Patient Care team information Care Team Personnel Name: Patrizia DOWNING, Dco Calzada [facility] - Primary Care Member Role: PCP Address: Address: [address] [facility] [place] [address]- Care Team Related Persons Name: CHRIS BAEZ Name: STELLA BAEZ Address: home [address] [place] [address]
--- OUTSIDE RECORDS SUMMARY | 2023-09-30 21:26 | XMS_ITS | Continuity of Care Document ---
Author Organization [facility] Cecil lt Address [address] [place] [address]- Care Team Providers Care International Account Manager Name Role Phone Doc Acharya MD Primary Care Physician [phone] [facility]s): 05/09/23 - 06/08/23 [facility] Adult [address] [place] [address]- Attending Physician: Admtr, Ar8 Allergies, Adverse Reactions, [...] virus vaccine, inactivated 5 12/21/12 Gi zakiya [id number] bivalent booster vax 12/16/21 Recorded SARS-CoV-2 mRNA (sumtgoa-zbcd-inrrc) vax 6 12/04/21 Recorded SARS-CoV-2 (COVID-19) mRNA-1273 [...] tetanus-diphtheria toxoids (Td) 02/29/96 Given 1Result Comment: [id number] Checklist done 2Result Comment: HD [facility]# [id number] 3Result Comment: [02/18/2017] [facility]:[id number] 4Location History: [facility] 5Admin Note: [facility] 6Result Comment: booster 7Admin Note: [employer] 8Admin Note: [employer] 9Admin Note: per pt rcvd eklsewhere 10Admin Note: clinic areil Medications hydrocortisone 2.5% topical cream See Instructions, APPLY TOPICALLY TO AFFECTED AREA THREE TIMES A DAY, # 28 Gm, 6 Refills, Maintenance, 06/14/22 10:25:00 EDT, [facility], 15, APPLY TOPICALLY TO AFFECTED AREA THREE TIMES A DAY, 168, cm, 05/18/22 12:13:00 EDT, Height, 98, kg,... Start Date: 06/14/22 Status: Ordered levothyroxine 0.088 mg oral tablet 1 tablet, By Mouth, Daily, # 90 tablet, 3 Refills, Maintenance, 11/18/22 13:51:00 EDT, [facility], 168, cm, 10/21/22 6:56:00 [...] 4noted by ct scan done [place] [facility] [place] Social History Social History Type Response [...] Event Display: Cardiology Note Office Authored Date: Radiology * Event Display: Ultrasound Pelvis, Non-BH Authored Date: * Event Display: Radiology Result Scanned Authored Date: * Annie Sargent: PERFORM Event Display: Radiology Results Scanned Authored Date: * Annie Sargent.: PERFORM Event Display: Radiology Results Scanned Authored Date: Patient Care team information Care Team Personnel Name: Doc Acharya MD Position: S Physician - Primary Care Member Role: PCP Address: Address: [address] [place] [address]- Care Team Related Persons Name: CHRIS BAEZ Name: STELLA BAEZ Address: home [address] [facility] [place] [address]
--- OUTSIDE RECORDS SUMMARY | 2023-09-30 21:26 | XMS_ITS | Continuity of Care Document ---
Author Organization [facility] Address [address] [place] [address]- Care Team Providers Care Substance Abuse Prevention Coordinator Name Role Phone Doc Acharya MD Primary Care Physician Encounter [facility] Date(s): 07/02/22 - 08/01/[address] [address] Attending Physician: AdmAnnie christianson Admitting Physician: Admtr, Ar8 Referring Physician: Admtr, Ar8 Allergies, Adverse Reactions, Alerts Substance Reaction Severity Status epinephrine Active Novocain heavy breathing Active Latex Active Immunizations Given and Recorded Vaccine Date Status Refusal Reason SARS-CoV-2 mRNA (xrkwkdy-xfwd-jokos) vax 1 12/04/21 Recorded influenza virus vaccine, [...] tetanus/diphtheria/pertussis, acel(Tdap) 09/25/14 Given FluLaval (oldterm) 6 9/14/12 Given FluLaval (oldterm) 7 02/15/11 Given influ virus vac, H1N1, inactive(oldterm) 11/27/09 Given Influenza Virus Vaccine (oldterm) 8 02/04/09 Given Influenza Virus Vaccine (oldterm) 01/05/08 Given Influenza Inactive (IM) (oldterm) 9 12/22/05 Given tetanus-diphtheria toxoids (Td) 12/09/05 Given tetanus-diphtheria toxoids (Td) 02/29/96 Given 1Result Comment: booster 2Result Comment: [facility]# [id number] 3Result Comment: [02/18/2017] [facility]:[id number] 4Location History: [facility] 5Admin Note: [facility] 6Admin Note: [employer] 7Admin Note: [employer] 8Admin Note: per pt rcvd eklsewhere 9Admin Note: clinic [facility] Medications hydrocortisone 2.5% topical cream See Instructions, APPLY TOPICALLY TO AFFECTED AREA THREE TIMES A DAY, # 28 Gm, 6 Refills, Maintenance, 06/14/22 10:25:00 EDT, [facility] # [facility], 15, APPLY TOPICALLY TO AFFECTED AREA THREE TIMES A DAY, 168, cm, 05/18/22 12:13:00 EDT, Height, 98, kg,... Start Date: 06/14/22 Status: Ordered levothyroxine 0.088 mg oral tablet 1 tablet, By Mouth, Daily, # 30 tablet, 5 Refills, Maintenance, 04/13/22 6:31:00 EST, [facility] # [facility], 168, cm, 01/06/22 13:21:00 [...] barretts 4noted by ct scan done at [facility] [place] 2009 Social History Social History Type Response Smoking Status Never smoker entered on: 03/26/13 Sex Patient Care team information Care Team Personnel Name: Doc Acharya MD Position: [facility] Physician - Primary Care Member Role: PCP Address: Address: [address] [place] [address]- Care Team Related Persons Name: CHRIS BAEZ Name: STELLA BAEZ Address: home [address] [place] [address]
--- OUTSIDE RECORDS SUMMARY | 2023-09-30 21:26 | XMS_ITS | Continuity of Care Document ---
Author Organization [facility] Address [address] [place] [address]- Care Team Providers Care Optical Designer Name Role Phone Patrizia DOWNING, Doc Calzada Primary Care Physician Encounter [facility] Date(s): 10/20/21 - 11/27/[address] [address] Encounter Diagnosis Cervicalgia(Final) - Discharge Disposition: A-D/C Home Attending Physician: Dru GALVAN, Michelle Henderson Admitting Physician: Dru GALVAN, Michelle Henderson Referring Physician: Dru GALVAN, Michelle Henderson Allergies, Adverse Reactions, Alerts Substance Reaction Severity Status epinephrine Active Novocain heavy breathing Active Latex Active Immunizations Given and Recorded Vaccine Date Status Refusal Reason influenza virus vaccine, inactivated 1 11/26/21 Gi zakiya influenza virus vaccine, inactivated 12/07/19 Give n influenza virus vaccine, inactivated 2 02/18/17 Gi zakiya influenza virus vaccine, inactivated 10/12/15 Give n influenza virus vaccine, inactivated 10/07/15 Brent rded influenza virus vaccine, inactivated 01/19/15 Give n influenza virus vaccine, inactivated 11/18/13 Brent rded influenza virus vaccine, inactivated 3 11/18/13 Re corded influenza virus vaccine, inactivated 4 12/21/12 Gi zakiya SARS-CoV-2 (COVID-19) mRNA-1273 vaccine 05/29/20 G iven SARS-CoV-2 (COVID-19) mRNA-1273 vaccine 05/01/20 G iven pneumococcal 23-valent vaccine 11/16/19 Given pneumococcal 13-valent vaccine 09/27/18 Given tetanus/diphtheria/pertussis, acel(Tdap) 09/25/14 Given FluLaval (oldterm) 5 9/14/12 Given FluLaval (oldterm) 6 02/15/11 Given influ virus vac, H1N1, inactive(oldterm) 11/27/09 Given Influenza Virus Vaccine (oldterm) 7 02/04/09 Given Influenza Virus Vaccine (oldterm) 01/05/08 Given Influenza Inactive (IM) (oldterm) 8 12/22/05 Given tetanus-diphtheria toxoids (Td) 12/09/05 Given tetanus-diphtheria toxoids (Td) 02/29/96 Given 1Result Comment: HD [facility]# [id number] 2Result Comment: [02/18/2017] [facility]:[id number] 3Location History: [facility] 4Admin Note: [facility] 5Admin Note: [employer] 6Admin Note: [facility] [place] 7Admin Note: per pt rcvd eklsewhere 8Admin Note: clinic ariel Medications hydrocortisone 2.5% topical cream 1 application, Topically, 3 times a day, # 30 Gm, 0 Refills, Acute 12/24/21 0:00:00 EDT, 11/26/21 9:11:00 EDT, Cream, [facility], Partial fill upon patient request if the prescription is fora schedule II opioid drug., 1 application Topically... Start Date: 11/26/21 Stop Date: 12/24/21 Status: Ordered levothyroxine 0.088 mg oral tablet See Instructions, TAKE ONE TABLET BY MOUTH EVERY DAY, # 30 tablet, 5 Refills, 10/15/21 10:54:00 EDT, [facility], Early refill, 170, cm, [...] barretts 4noted by ct scan done at [facility] [place] 2009 Social History Social History Type Response Smoking Status Never smoker entered on: 03/26/13 Sex Patient Care team information Personnel Name: Patrizia DOWNING, Doc Calzada Address: Address: [address] [place] [address]
--- OUTSIDE RECORDS SUMMARY | 2023-09-30 21:26 | XMS_ITS | Continuity of Care Document ---
Author Organization [facility] Cecil lt Address [address] [place] [address]- Care Team Providers Care Transmission And Coordination Engineer Name Role Phone Doc Acharya MD Primary Care Physician [facility] Date(s): 01/18/23 - 02/17/23 [facility] Adult [address] [place] [address]- Allergies, Adverse Reactions, Alerts Substance Reaction Severity [...] virus vaccine, inactivated 5 12/21/12 Gi zakiya [id number] bivalent booster vax 12/16/21 Recorded SARS-CoV-2 mRNA (qaokaee-zwnk-bmpco) vax 6 12/04/21 Recorded SARS-CoV-2 (COVID-19) mRNA-1273 [...] tetanus-diphtheria toxoids (Td) 02/29/96 Given 1Result Comment: [id number] Checklist done 2Result Comment: [facility]# [id number] 3Result Comment: [02/18/2017] [facility]:[id number] 4Location History: [facility] 5Admin Note: [facility] 6Result Comment: booster 7Admin Note: [employer] 8Admin Note: [employer] 9Admin Note: per pt rcvd eklsewhere 10Admin Note: clinic ariel Medications hydrocortisone 2.5% topical cream See Instructions, APPLY TOPICALLY TO AFFECTED AREA THREE TIMES A DAY, # 28 Gm, 6 Refills, Maintenance, 06/14/22 10:25:00 EDT, [facility], 15, APPLY TOPICALLY TO AFFECTED AREA THREE TIMES A DAY, 168, cm, 05/18/22 12:13:00 EDT, Height, 98, kg,... Start Date: 06/14/22 Status: Ordered levothyroxine 0.088 mg oral tablet 1 tablet, By Mouth, Daily, # 90 tablet, 3 Refills, Maintenance, 11/18/22 13:51:00 EDT, [facility], 168, cm, 10/21/22 6:56:00 [...] [facility] 2009 Social History Social History Type Response Smoking Status Never smoker entered on: 03/26/13 Sex Patient Care team information Care Team Personnel Name: Doc Acharya MD Position: S Physician - Primary Care Member Role: PCP Address: Address: [address] [place] [address]- Care Team Related Persons Name: CHRIS BAEZ Name: STELLA BAEZ Address: home [address] [place] [address]
--- OUTSIDE RECORDS SUMMARY | 2023-09-30 21:26 | XMS_ITS | Continuity of Care Document ---
Author Organization [facility] Address [address] [place] [address]- Care Team Providers Care Artillery Maintenance Supervisor Name Role Phone Patrizia DOWNING, Doc Calzada Primary Care Physician [facility] Date[facility]s): 05/17/19 - 06/13/[address] [address]- [facility] Discharge Disposition: A-D/C Home Attending Physician: Doc Acharya MD Admitting Physician: Doc Acharya MD Referring Physician: Michelle Gonsales NP Allergies, Adverse Reactions, Alerts Substance Reaction Severity [...] toxoids (Td) 02/29/96 Given 1Result Comment: [02/18/2017] [facility]:[id number] 2Location History: [facility] 3Admin Note: [facility] 4Admin Note: [employer] [place] 5Admin Note: [employer] [place] 6Admin Note: per pt rcvd eklsewhere 7Admin [...]
--- OUTSIDE RECORDS SUMMARY | 2023-09-30 21:26 | XMS_ITS | Continuity of Care Document ---
Author Organization [facility] Kadeem Cecil Address [address] [place] [address]- Care Team Providers Care Telecommunications Analyst Name Role Phone Doc Acharya MD Primary Care Physician Encounter [facility] Date(s): 05/07/21 - 05/14/21 [facility] Adult [address] [place] [address]- Encounter Diagnosis Right elbow pain(Discharge Diagnosis) - 05/07/21 Frequent falls(Discharge Diagnosis) - 05/07/21 Attending Physician: Not on Staff, Attending MD Referring Physician: Doc Acharya MD Allergies, [...] toxoids (Td) 02/29/96 Given 1Result Comment: [02/18/2017] [facility]:[id number] 2[facility] 3Admin Note: [facility] 4Admin Note: [employer] 5Admin Note: [employer] 6Admin Note: per pt rcvd eklsewhere 7Admin Note: clinic ariel Medications levothyroxine 0.088 mg oral tablet 1 tablet = 88 mcg, By Mouth, Daily, Labsork due begining of January 2021, # 30 tablet, 2 Refills, Maintenance, 02/26/21 9:45:00 EST, Tablet, [facility], Partial fill upon patient request ifthe prescription is for a schedule II opioid drug.,... Start Date: 02/26/21 Status: Ordered Problem List Condition Effective Dates [...] [place] [facility] [place] Diagnosis Diagnosis Type Effective Dates Health Status Cl inical Service Informant Right elbow pain Discharge Diagnosis 05/07/21 Frequent falls Discharge Diagnosis 05/07/21 Vital Signs Most recent to oldest [Reference Range]: 1 Height 170 cm (05/07/21 8:11 AM) Weight 95.3 kg (05/07/21 8:11 AM) Oxygen Saturation [94-100 %] 98 % (05/07/21 8:11 AM) Pulse Rate [55-90 bpm] 85 bpm (05/07/21 8:11 AM) Body Mass Index [18.5-24.99] 32.98 *>HHI* (05/07/21 8:11 AM) Blood Pressure [90-138/55-84 mm Hg] 116/ 60mm Hg (05/07/21 8:11 AM) Temperature [96.8-100.4 DegF] 97.7 DegF (05/07/21 8:11 AM) Mode of Delivery (Oxygen) Room air (05/07/21 8:11 AM) Blood pressure sites Arm, left (05/07/21 8:11 AM) Temperature Route Oral (05/07/21 8:11 AM) Weight Obtained Via Standing scale (05/07/21 8:11 AM) Social History Social History Type Response Smoking Status Never smoker entered on: 03/26/13 Sex
--- OUTSIDE RECORDS SUMMARY | 2023-09-30 21:26 | XMS_ITS | Continuity of Care Document ---
Author Organization [facility] Kadeem Cecil Address [address] [place] [address]- Care Team Providers Care Semiconductor Wafer Inspector Name Role Phone Patrizia DOWNING, Doc Calzada Primary Care Physician [facility] Date[facility]s): 05/07/21 - 06/06/21 [facility] Adult [address] [place] [address]- Allergies, Adverse Reactions, Alerts Substance Reaction Severity [...] toxoids (Td) 02/29/96 Given 1Result Comment: [02/18/2017] [facility]:[id number] 2Location History: [facility] 3Admin Note: [facility] 4Admin Note: [employer] 5Admin Note: [employer] 6Admin Note: per pt rcvd eklsewhere 7Admin [...] barretts 4noted by ct [place] [facility] [place] Social History Social History Type Response Smoking Status Never smoker entered on: 03/26/13 Sex
--- OUTSIDE RECORDS SUMMARY | 2023-09-30 21:26 | XMS_ITS | Continuity of Care Document ---
Author Organization [facility] Address [address], [address] [place] [address]- Care Team Providers Care Hydraulic Jack Mechanic Name Role Phone Doc Acharya MD Primary Care Physician [phone] Encounter 01/25/22 - 02/01/22 [facility] [address], [address] [place] [address]- Attending Physician: Doc Acharya MD Admitting Physician: Doc Acharya MD Referring Physician: Doc Acharya MD Allergies, Adverse Reactions, Alerts Substance Reaction Severity Status epinephrine Active Novocain heavy breathing Active Latex Active Immunizations Given and Recorded Vaccine Date Status Refusal Reason SARS-CoV-2 mRNA (qtgujyk-loht-ueisp) vax 1 12/04/21 Recorded influenza virus vaccine, [...] Given 1Result Comment: booster 2Result Comment: [facility]# [id number] 3Result Comment: [02/18/2017] [facility]:[id number] 4Location History: [facility] 5Admin Note: [facility] 6Admin Note: Personal Style Finder 7Admin Note: Personal Style Finder 8Admin Note: per pt rcvd eklsewhere 9Admin Note: [facility] Medications hydrocortisone 2.5% topical cream See Instructions, APPLY TOPICALLY THREE TIMES A DAY, # 28 Gm, 0 Refills, Maintenance, 12/18/21 17:20:00 EDT, [facility] # [facility], 30, APPLY TOPICALLY THREE TIMES A DAY, 168, cm, 12/01/21 11:18:00 EDT, Height, 98, kg, 11/29/21 14:21:00 EDT, Dry Weight Start Date: 12/18/21 Status: Ordered levothyroxine 0.088 mg oral tablet See Instructions, TAKE ONE TABLET BY MOUTH EVERY DAY, # 30 tablet, 5 Refills, 10/15/21 10:54:00 EDT, [facility] # [facility], Early refill, 170, cm, [...] 4not[place] [facility] [place] Results Radiology Reports * Exam Date Time Procedure Performing Provider Status 01/25/22 3:05 PM MM Digital Mammo Screening Ashly Cuevas; Auth (Verified) Notes: (MM Digital Mammo Screening) Reason For Exam: Z12.31 ROUTINE SCREENING RESULT: MM Digital Mammo Screening PROCEDURE: MM Digital Mammo Screening CLINICAL INDICATION: 66 years old Female for screening. COMPARISON: Digital mammograms of 2010 through 2020. TECHNIQUE: Full field digital CC and MLO 3D tomosynthesis images of both breasts were acquired. Computer -aided detection (CAD) was utilized in the interpretation of this study. DENSITY: There are scattered areas of fibroglandular density. FINDINGS: Normal bilateral axillary lymph nodes noted. Small oil cysts, clearly benign noted in the upper quadrant of the RIGHT breast again. Small numbers of scattered, benign appearing microcalcifications are noted bilaterally. No new masses, suspicious clusters of microcalcifications, areas of architectural distortion, skin thickening or nipple retraction are seen in either breast. IMPRESSION: 1. No mammographic evidence of malignancy. RECOMMENDATION: Annual mammographic screening BI-RADS 2 - Benign. Lay letter mailed to patient. WSN: [id number] Ordering Physician: Doc Acharya Dictated By: Akin Rick MD Dictated Date/Time: 01/25/22 5:04 pm Reviewed By: Akin Rick MD Signed By: Akin Rick MD Signed Date/Time: 01/25/22 5:04 pm Transcribed By: SHELIA Paving Supervisor Date/Time: 01/25/22 5:01 pm Birads: Social History Social History Type Response Smoking Status Never smoker entered on: 03/26/13 Sex MG Breast Screening * BHSPowerscribe , CIS S: TRANSCRIBE Akin Rick MD: VERIFY Event Display: Result: Authored Date: [id number] PROCEDURE: MM Digital Mammo Screening CLINICAL INDICATION: 66 years old Female for screening. COMPARISON: Digital mammograms of 2010 through 2020. TECHNIQUE: Full field digital CC and MLO 3D tomosynthesis images of both breasts were acquired. Computer -aided detection (CAD) was utilized in the interpretation of this study. DENSITY: There are scattered areas of fibroglandular density. FINDINGS: Normal bilateral axillary lymph nodes noted. Small oil cysts, clearly benign noted in the upper quadrant of the RIGHT breast again. Small numbers of scattered, benign appearing microcalcifications are noted bilaterally. No new masses, suspicious clusters of microcalcifications, areas of architectural distortion, skin thickening or nipple retraction are seen in either breast. IMPRESSION: 1. No mammographic evidence of malignancy. RECOMMENDATION: Annual mammographic screening BI-RADS 2 - Benign. Lay letter mailed to patient. WSN: [id number] Ordering Physician: Doc Acharya Dictated By: Akin Rick MD Dictated Date/Time: 01/25/22 5:04 pm Reviewed By: Akin Rick MD Signed By: Akin Rick MD Signed Date/Time: 01/25/22 5:04 pm Transcribed By: SHELIA Paving Supervisor Date/Time: 01/25/22 5:01 pm Birads: Patient Care team information Care Team Personnel Name: Doc Acharya MD Position: S Primary Care Physician Member Role: PCP Address: Address: [address] [place] [address]- Care Team Related Persons Name: CHRIS BAEZ Name: STELLA BAEZ Address: [address] [address]
--- OUTSIDE RECORDS SUMMARY | 2023-09-30 21:26 | XMS_ITS | Continuity of Care Document ---
Author Organization [facility] Kadeem [facility] Address [address] [place] [address]- Care Team Providers Care Slot Machine Floor Person Name Role Phone Patrizia DOWNING, Doc Calzada Primary Care Physician [facility] - 08/20/21 [facility] Adult [address] [place] [address]- Attending Physician: Yisel Lyons Referring Physician: Doc Acharya MD Allergies, Adverse [...] toxoids (Td) 02/29/96 Given 1Result Comment: [02/18/2017] [facility]:[id number] 2Location History: [facility] 3Admin Note: [facility] 4Admin Note: [employer] 5Admin Note: [employer] 6Admin Note: per pt rcvd eklsewhere 7Admin Note: clinic [facility] Medications estradiol 0.1 mg/g vaginal cream See Instructions, INSERT 1 GRAM VAGINALLY ONCE DAILY AT BEDTIME FOR 1 MONTH, THEN REDUCE TO TWICE WEEKLY THERAFTER., # 42.5 Gm, 0 Refills, [facility], 170, cm, 07/14/21 10:38:00 EDT, Height Start Date: 07/28/21 Status: Ordered levothyroxine 0.088 mg oral tablet See Instructions, TAKE ONE TABLET BY MOUTH EVERY DAY, # 30 tablet, 5 Refills, 08/16/21 10:08:00 EDT, [facility] # [facility], 170, cm, 08/13/21 11:28:00 [...] 4noted by ct scan done at [facility] [place] 2009 Vital Signs Most recent to oldest [Reference Range]: 1 Height 170 cm (08/13/21 11:28 AM) Weight 97.7 kg (08/13/21 11:28 AM) Oxygen Saturation [94-100 %] 100 % (08/13/21 11:28 AM) Pulse Rate [55-90 bpm] 82 bpm (08/13/21 11:28 AM) Body Mass Index [18.5-24.99] 33.81 *>HHI* (08/13/21 11:28 AM) Blood Pressure [90-138/55-84 mm Hg] 115/ 57mm Hg (08/13/21 11:28 AM) Temperature [96.8-100.4 DegF] 97.4 DegF (08/13/21 11:28 AM) Blood pressure sites Arm, right (08/13/21 11:28 AM) Temperature Route Temporal (08/13/21 11:28 AM) Weight Obtained Via Standing scale (08/13/21 11:28 AM) Social History Social History Type Response Smoking Status Never smoker entered on: 03/26/13 Sex
--- OUTSIDE RECORDS SUMMARY | 2023-09-30 21:26 | XMS_ITS | Continuity of Care Document ---
Author Organization [facility] Address [address] [place] [address]- Care Team Providers Care Brush Cleaner Name Role Phone Patrizia DOWNING, Doc Calzada Primary Care Physician [phone] [facility] 05[facility]11[facility]19 - 05/21/19 [facility] Adult [address] [place] [address]- [facility] Attending Physician: Admtr, Ar8 Allergies, Adverse Reactions, [...] toxoids (Td) 02/29/96 Given 1Result Comment: [02/18/2017] [facility]:[id number] 2Location History: [facility] 3Admin Note: [facility] 4Admin Note: [employer] 5Admin Note: [employer] 6Admin Note: per pt rcvd eklsewhere 7Admin [...] barretts 4noted by ct scan done at [facility] [place] 2010 Social History Social History Type Response Smoking Status Never smoker entered on: 03/26/13 Sex
--- OUTSIDE RECORDS SUMMARY | 2023-09-30 21:26 | XMS_ITS | Continuity of Care Document ---
Author Organization [facility] [place] [facility] lt Address [address] [place] [address]- Care Team Providers Care Biblical Languages Professor Name Role Phone Doc Acharya MD Primary Care Physician [facility] Date(s): 05/11/23 - 06/10/23 [facility] Adult [address] [place] [address]- Allergies, Adverse Reactions, Alerts Substance Reaction Severity [...] virus vaccine, inactivated 5 12/21/12 Gi zakiya [id number] bivalent booster vax 12/16/21 Recorded SARS-CoV-2 mRNA (uyktbvn-gsev-vefsx) vax 6 12/04/21 Recorded SARS-CoV-2 (COVID-19) mRNA-1273 [...] tetanus-diphtheria toxoids (Td) 02/29/96 Given 1Result Comment: [id number] Checklist done 2Result Comment: [facility]# [id number] 3Result Comment: [02/18/2017] [facility]:[id number] 4Location History: [facility] 5Admin Note: [facility] 6Result Comment: booster 7Admin Note: [employer] 8Admin Note: [employer] 9Admin Note: per pt rcvd eklsewhere 10Admin Note: clinic [facility] Medications hydrocortisone 2.5% topical cream See Instructions, APPLY TOPICALLY TO AFFECTED AREA THREE TIMES A DAY, # 28 Gm, 6 Refills, Maintenance, 06/14/22 10:25:00 EDT, [facility] # [facility], 15, APPLY TOPICALLY TO AFFECTED AREA THREE TIMES A DAY, 168, cm, 05/18/22 12:13:00 EDT, Height, 98, kg,... Start Date: 06/14/22 Status: Ordered levothyroxine 0.088 mg oral tablet 1 tablet, By Mouth, Daily, # 90 tablet, 3 Refills, Maintenance, 11/18/22 13:51:00 EDT, [facility] # [facility], 168, cm, 10/21/22 6:56:00 [...] Care Member Role: PCP Address: Address: [address] [place] [address]- Care Team Related Persons Name: CHRIS BAEZ Name: STELLA BAEZ Address: home [address] [place] [id number]
--- OUTSIDE RECORDS SUMMARY | 2023-09-30 21:26 | XMS_ITS | Continuity of Care Document ---
Author Organization [facility] Address [address], [address] [place] [address]- Care Team Providers Care Wallpaper Inspector Name Role Phone Patrizia DOWNING, Doc Calzada Primary Care Physician Encounter 08/17/23 - 08/24/23 [facility] [address], [address] [place] [address]- Attending Physician: Judy Bustamante Admitting Physician: Judy Bustamante Referring Physician: Judy Bustamante Allergies, Adverse Reactions, Alerts Substance Reaction Severity [...] virus vaccine, inactivated 5 12/21/12 Gi zakiya [id number] bivalent booster vax 12/16/21 Recorded SARS-CoV-2 mRNA (quymmut-qdrs-kavjb) vax 6 12/04/21 Recorded SARS-CoV-2 (COVID-19) mRNA-1273 [...] tetanus-diphtheria toxoids (Td) 02/29/96 Given 1Result Comment: [id number] Checklist done 2Result Comment: [facility]# [id number] 3Result Comment: [02/18/2017] [facility]:[id number] 4Location History: [facility] 5Admin Note: [facility] 6Result Comment: booster 7Admin Note: [employer] 8Admin Note: [employer] 9Admin Note: per pt rcvd eklsewhere 10Admin Note: clinic [facility] Medications hydrocortisone 2.5% topical cream See Instructions, APPLY TOPICALLY TO AFFECTED AREA THREE TIMES A DAY, # 28 Gm, 6 Refills, Maintenance, 06/14/22 10:25:00 EDT, [facility] # [facility], 15, APPLY TOPICALLY TO AFFECTED AREA THREE TIMES A DAY, 168, cm, 05/18/22 12:13:00 EDT, Height, 98, kg,... Start Date: 06/14/22 Status: Ordered levothyroxine 0.088 mg oral tablet 1 tablet, By Mouth, Daily, # 90 tablet, 3 Refills, Maintenance, 11/18/22 13:51:00 EDT, [facility] # [facility], 168, cm, 10/21/22 6:56:00 EDT, Height, 98, kg, 11/29/21 14:21:00 EDT, Dry Weight Start Date: 11/18/22 Status: Ordered Nystop 894908 u/gm powder See Instructions, APPLY TOPICALLY TWO [...] Confirmed Active 1Colonoscopy 2013 normal, repeat 2023. 16710 negative repeat 2013 3egd 2008 negative barretts 4noted by ct [place] [facility] [place] Results Radiology Reports * Exam Date Time Procedure Performing Provider Status 08/16/23 12:55 PM US Renal Bladder Cuong Harper; Modified Notes: (US Renal Bladder) Reason For Exam: calculus of kidney RESULT: US Retroperitoneum Comp US Retroperitoneum Comp Reason: calculus of kidney COMPARISON: [facility], [address] [place] [address], [place], [place] FINDINGS: Right kidney: 12.6 cm in length. No hydronephrosis. Approximately 5 echogenic foci in the right kidney range in size from 0.2 to 1.3 cm Multiple right renal cysts Left kidney: 12.2 cm in length. No hydronephrosis. Approximately 4 echogenic foci in the left kidney range in size from 0.3 to 0.5 cm. Left renal cyst. Urinary bladder: Grossly no abnormality with limited bladder distention. Ureteral jets are not seen. This may be technical IMPRESSION: Echogenic foci in the bilateral kidneys may be small nonobstructing renal stones. Overall no significant change in the stone burden when compared to the previous exam. Bilateral renal cysts. WSN: [id number] Ordering Physician: Judy Peña Dictated By: Mayank Mayo MD Dictated Date/Time: 08/17/23 1:42 pm Reviewed By: Mayank Mayo MD Signed By: Mayank Mayo MD Signed Date/Time: 08/17/23 1:42 pm Transcribed By: SHELIA Transcribed Date/Time: 08/17/23 1:39 pm Social History Social History Type Response Smoking Status Never smoker entered on: 03/26/13 Sex Patient Care team information Care Team Personnel Name: Doc Acharya MD Position: S Physician - Primary Care Member Role: PCP Address: Address: [address] [place] [address]- Care Team Related Persons Name: CHRIS BAEZ Name: STELLA BAEZ Address: home [address] [place] [address]
--- OUTSIDE RECORDS SUMMARY | 2023-09-30 21:26 | XMS_ITS | Continuity of Care Document ---
Author Organization [facility] Address [address] [place] [address]- Care Team Providers Care Geophysical E Logger Name Role Phone Patrizia DOWNING, Doc Calzada Primary Care Physician [facility]): 05[facility]11[facility]19 - 05/18/19 [facility] Adult [address] [place] [address]- [facility] Encounter Diagnosis Knee pain, left(Discharge Diagnosis) - 05/11/19 Attending Physician: Not on Staff, Attending MD Allergies, Adverse Reactions, Alerts Substance Reaction [...] toxoids (Td) 02/29/96 Given 1Result Comment: [02/18/2017] [facility]:[id number] 2Location History: [facility] 3Admin Note: [facility] 4Admin Note: [employer] 5Admin Note: [employer] 6Admin Note: per pt rcvd eklsewhere 7Admin [...] [place] [facility] [place] Diagnosis Diagnosis Type Effective Dates Health Status Cl inical Service Informant Knee pain, left Discharge Diagnosis 05/11/19 Vital Signs Most recent to oldest [Reference Range]: 1 Height 170 cm (05/11/19 2:53 PM) Weight 98.7 kg (05/11/19 2:53 PM) Oxygen Saturation [94-100 %] 97 % (05/11/19 2:53 PM) Pulse Rate [55-90 bpm] 78 bpm (05/11/19 2:53 PM) Body Mass Index [18.5-24.99] 34.15 *>HHI* (05/11/19 2:53 PM) Blood Pressure [90-138/55-84 mm Hg] 138/ 80mm Hg (05/11/19 2:53 PM) Temperature [96.8-100.4 DegF] 98.7 DegF (05/11/19 2:53 PM) Blood pressure sites Arm, left (05/11/19 2:53 PM) Temperature Route Oral (05/11/19 2:53 PM) Social History Social History Type Response Smoking Status Never smoker entered on: 03/26/13 Sex
--- OUTSIDE RECORDS SUMMARY | 2023-09-30 21:26 | XMS_ITS | Continuity of Care Document ---
Author Organization [facility] Address [address] [place] [address]- Care Team Providers Care Graphotype Operator Name Role Phone Doc Acharya MD Primary Care Physician [facility]s): 07/07/22 - 08/06/22 [facility] Adult [address] [place] [address]- Allergies, Adverse Reactions, Alerts Substance Reaction Severity Status epinephrine Active Novocain heavy breathing Active Latex Active Immunizations Given and Recorded Vaccine Date Status Refusal Reason SARS-CoV-2 mRNA (ohbkyuj-mwnf-btzte) vax 1 12/04/21 Recorded influenza virus vaccine, [...] Given 1Result Comment: booster 2Result Comment: [facility]# [id number] 3Result Comment: [02/18/2017] [facility]:[id number] 4Location History: [facility] 5Admin Note: [facility] 6Admin Note: Jip[employer] 7Admin Note: [employer] 8Admin Note: per pt rcvd eklsewhere 9Admin Note: clinic [facility] Medications hydrocortisone 2.5% topical cream See Instructions, APPLY TOPICALLY TO AFFECTED AREA THREE TIMES A DAY, # 28 Gm, 6 Refills, Maintenance, 06/14/22 10:25:00 EDT, [facility] # [facility], 15, APPLY TOPICALLY TO AFFECTED AREA THREE TIMES A DAY, 168, cm, 05/18/22 12:13:00 EDT, Height, 98, kg,... Start Date: 06/14/22 Status: Ordered levothyroxine 0.088 mg oral tablet 1 tablet, By Mouth, Daily, # 30 tablet, 5 Refills, Maintenance, 04/13/22 6:31:00 EST, [facility] # [facility], 168, cm, 01/06/22 13:21:00 [...] Confirmed Active 1Colonoscopy 2013 normal, repeat 4. 97833 negative repeat 2013 3egd 2008 negative barretts 4noted by ct scan [place] [facility] [place] Social History Social History Type Response Smoking Status Never smoker entered on: 03/26/13 Sex Patient Care team information Care Team Personnel Name: Patrizia DOWNING, Doc Calzada Position: [facility] Physician - Primary Care Member Role: PCP Address: Address: [address] [place] [address]- [place] Care Team Related Persons Name: CHRIS BAEZ Name: STELLA BAEZ Address: home [address] [place] [address]
--- OUTSIDE RECORDS SUMMARY | 2023-09-30 21:26 | XMS_ITS | Continuity of Care Document ---
Author Organization [facility] Kadeem Cecil lt Address [address] [place] [address]- Care Team Providers Care Cisco Network Architect Name Role Phone Doc Acharya MD Primary Care Physician [facility](s): 04/15/20 - 05/15/20 [facility] Adult [address] [place] [address]- Attending Physician: Admtr, Ar8 Allergies, Adverse Reactions, [...] toxoids (Td) 02/29/96 Given 1Result Comment: [02/18/2017] [facility]:[id number] 2Location History: [facility] 3Admin Note: [facility] 4Admin Note: [employer] 5Admin Note: [facility] 6Admin Note: per pt rcvd eklsewhere 7Admin [...] 4not[place] by [place] [facility] [place] Social History Social History Type Response Smoking Status Never smoker entered on: 03/26/13 Sex
--- OUTSIDE RECORDS SUMMARY | 2023-09-30 21:26 | XMS_ITS | Continuity of Care Document ---
Author Organization [facility] lt Address [address] [place] [address]- Care Team Providers Care Histologic Technician Name Role Phone Doc Acharya MD Primary Care Physician [facility] Date(s): 03/27/21 - 04/26/21 [facility] Adult [address] [place] [address]- Allergies, Adverse Reactions, Alerts Substance Reaction Severity [...] 1Result Comment: [02/18/2017] [facility]:[id number] 2Location History: [facility] 3Admin Note: [facility] 4Admin Note: [employer] 5Admin Note: [employer] 6Admin Note: per pt rcvd eklsewhere [...] 4not[place] [facility] [place] Social History Social History Type Response Smoking Status Never smoker entered on: 03/26/13 Sex
--- OUTSIDE RECORDS SUMMARY | 2023-09-30 21:26 | XMS_ITS | Continuity of Care Document ---
Author Organization [facility] lt Address [address] [place] [address]- Care Team Providers Care Take Up Supervisor Name Role Phone Doc Acharya MD Primary Care Physician Encounter [facility] Date(s): 06/15/23 - 06/22/23 [facility] Adult [address] [place] [address]- Encounter Diagnosis External hemorrhoid(Discharge Diagnosis) - 06/15/23 Attending Physician: Yisel Lyons Allergies, Adverse Reactions, [...] virus vaccine, inactivated 5 12/21/12 Gi zakiya [id number] bivalent booster vax 12/16/21 Recorded SARS-CoV-2 mRNA (nxulkuy-mgfy-efgdr) vax 6 12/04/21 Recorded SARS-CoV-2 (COVID-19) mRNA-1273 vaccine 01/28/21 R ecorded SARS-CoV-2 (COVID-19) mRNA-1273 vaccine 4/1/21 G iven SARS-CoV-2 (COVID-19) mRNA-1273 vaccine 05/01/20 [...] tetanus-diphtheria toxoids (Td) 02/29/96 Given 1Result Comment: [id number] Checklist done 2Result Comment: [facility]# [id number] 3Result Comment: [02/18/2017] [facility]:[id number] 4Location History: [facility] 5Admin Note: [facility] 6Result Comment: booster 7Admin Note: [employer] 8Admin Note: [employer] 9Admin Note: per pt rcvd eklsewhere 10Admin Note: clinic [facility] Medications Anusol-HC 25 mg suppository 1 supp = 25 mg, Rectally, 2 times a day, for 14 days, # 28 supp, 0 Refills, Acute 06/29/23 15:29:00EDT, 06/15/23 15:29:00 EDT, Suppository, [facility] # [facility], Partial fill upon patient request if the prescription is for a schedule II opioid drug.,... Start Date: 06/15/23 Stop Date: 06/29/23 Status: Ordered hydrocortisone 2.5% topical cream See Instructions, APPLY TOPICALLY TO AFFECTED AREA THREE TIMES A DAY, # 28 Gm, 6 Refills, Maintenance, 06/14/22 10:25:00 EDT, [facility] # [facility], 15, APPLY TOPICALLY TO AFFECTED AREA THREE TIMES A DAY, 168, cm, 05/18/22 12:13:00 EDT, Height, 98, kg,... Start Date: 06/14/22 Status: Ordered levothyroxine 0.088 mg oral tablet 1 tablet, By Mouth, Daily, # 90 tablet, 3 Refills, Maintenance, 11/18/22 13:51:00 EDT, [facility], 168, cm, 10/21/22 [...] barretts 4noted by ct scan done at [facility] 2009 Diagnosis Diagnosis Type Effective Dates Health Status Clinical Service Informant External hemorrhoid Discharge Diagnosis 06/15/23 Vital Signs Most recent to oldest [Reference Range]: 1 Height 167.64 cm (06/15/23 3:11 PM) Weight 100.9 kg (06/15/23 3:11 PM) Oxygen Saturation [94-100 %] 97 % (06/15/23 3:11 PM) Pulse Rate [55-90 bpm] 74 bpm (06/15/23 3:11 PM) Body Mass Index [18.5-24.99 kg/m2] 35.9 kg/m2 *>HHI* (06/15/23 3:11 PM) Blood Pressure [90-138/55-84 mm Hg] 122/ 70mm Hg (06/15/23 3:11 PM) Temperature [96.8-100.4 DegF] 97.9 DegF (06/15/23 3:11 PM) Mode of Delivery (Oxygen) Room air (06/15/23 3:11 PM) Blood pressure sites Arm, right (06/15/23 3:11 PM) Temperature Route Oral (06/15/23 3:11 PM) Weight Obtained Via Standing scale (06/15/23 3:11 PM) Social History Social History Type Response Smoking Status Never smoker entered on: 03/26/13 Sex Patient Care team information Care Team Personnel Name: Patrizia DOWNING, Doc Calzada Position: [facility] Physician - Primary Care Member Role: PCP Address: Address: [address] [place] [address]- Care Team Related Persons Name: CHRIS BAEZ Name: STELLA BAEZ Address: [address] [address]
--- OUTSIDE RECORDS SUMMARY | 2023-09-30 21:26 | XMS_ITS | Continuity of Care Document ---
Author Organization [facility] Cecil lt Address [address] [place] [address]- Care Team Providers Care Sanding Machine Tender Automatic Name Role Phone Doc Acharya MD Primary Care Physician [phone] [facility] Date[facility]s): 07/28/22 - 08/27/22 [facility] Adult [address] [place] [address]- Attending Physician: Admtr, Ar8 Allergies, Adverse Reactions, Alerts Substance Reaction Severity Status epinephrine Active Novocain heavy breathing Active Latex Active Immunizations Given and Recorded Vaccine Date Status Refusal Reason SARS-CoV-2 mRNA (sticqrk-lmio-qixnz) vax 1 12/04/21 Recorded influenza virus vaccine, [...] booster 2Result Comment: HD [facility]# [id number] 3Result Comment: [02/18/2017] [facility]:[id number] 4[facility]: [facility] 5Admin Note: [facility] 6Admin Note: [employer] 7Admin Note: [employer] 8Admin Note: per pt rcvd eklsewhere 9Admin Note: clinic [facility]riel Medications hydrocortisone 2.5% topical cream See Instructions, APPLY TOPICALLY TO AFFECTED AREA THREE TIMES A DAY, # 28 Gm, 6 Refills, Maintenance, 06/14/22 10:25:00 EDT, [facility] # [facility], 15, APPLY TOPICALLY TO AFFECTED AREA THREE TIMES A DAY, 168, cm, 05/18/22 12:13:00 EDT, Height, 98, kg,... Start Date: 06/14/22 Status: Ordered levothyroxine 0.088 mg oral tablet 1 tablet, By Mouth, Daily, # 30 tablet, 5 Refills, Maintenance, 04/13/22 6:31:00 EST, [facility] # [facility], 168, cm, 01/06/22 13:21:00 [...] barretts 4noted by ct scan done at [facility] [place] 2009 Social History Social History Type Response [...] Team Personnel Name: Doc Acharya MD Position: [facility] Physician - Primary Care Member Role: PCP Address: Address: [address] [place] [address]- Care Team Related Persons Name: CHRIS BAEZ Name: STELLA BAEZ Address: home [address] [place] [id number]
--- OUTSIDE RECORDS SUMMARY | 2023-09-30 21:26 | XMS_ITS | Continuity of Care Document ---
Author Organization [facility] Cecil lt Address [address] [place] [address]- Care Team Providers Care Spinner Open End Name Role Phone Doc Acharya MD Primary Care Physician [facility] Date(s): 02/26/21 - 03/28/21 [facility] Adult [address] [place] [address]- Allergies, Adverse Reactions, Alerts Substance Reaction Severity [...] (Td) 02/29/96 Given 1Result Comment: [02/18/2017] [facility]:[id number] 2Location History: [facility] 3Admin Note: [facility] 4Admin Note: [employer] 5Admin Note: [employer] 6Admin Note: per pt rcvd eklsewhere 7Admin [...] barretts 4[place] by [place] [facility] [place] Social History Social History Type Response Smoking Status Never smoker entered on: 03/26/13 Sex
--- OUTSIDE RECORDS SUMMARY | 2023-09-30 21:26 | XMS_ITS | Continuity of Care Document ---
Author Organization [facility] [place] Address [address] [place] [address]- Care Team Providers Care Catering Barista Name Role Phone Doc Acharya MD Primary Care Physician [phone] Encounter [facility] Date(s): 12/01/21 - 12/08/21 [facility] Adult [address] [place] [address]- Encounter Diagnosis Facial trauma(Discharge Diagnosis) - 12/01/21 Attending Physician: Dru GALVAN, Michelle Henderson Referring Physician: Doc Acharya MD Allergies, Adverse [...] tetanus/diphtheria/pertussis, acel(Tdap) 09/25/14 Given FluLaval (oldterm) 5 11/12/11 Given FluLaval (oldterm) 6 02/15/11 Given influ virus vac, H1N1, inactive(oldterm) 11/27/09 Given Influenza Virus Vaccine (oldterm) 7 02/04/09 Given Influenza Virus Vaccine (oldterm) 01/05/08 Given Influenza Inactive (IM) (oldterm) 8 12/22/05 Given tetanus-diphtheria toxoids (Td) 12/09/05 Given tetanus-diphtheria toxoids (Td) 02/29/96 Given 1Result Comment: [facility]# [id number] 2Result Comment: [02/18/2017] [facility]:[id number] 3Location History: [facility] 4Admin Note: [facility] 5Admin Note: [employer] 6Admin Note: [employer] 7Admin Note: per pt rcvd eklsewhere 8Admin Note: clinic [facility] Medications hydrocortisone 2.5% topical cream 1 application, Topically, 3 times a day, # 30 Gm, 0 Refills, Acute 12/24/21 0:00:00 EDT, 11/26/21 9:11:00 EDT, Cream, [facility], [facility] [place] [place] Diagnosis Diagnosis Type Effective Dates Health Status Cl inical Service Informant Facial trauma Discharge Diagnosis 12/01/21 Vital Signs Most recent to oldest [Reference Range]: 1 Height 168 cm (12/01/21 11:18 AM) Weight 98 kg (12/01/21 11:18 AM) Oxygen Saturation [94-100 %] 97 % (12/01/21 11:18 AM) Pulse Rate [55-90 bpm] 83 bpm (12/01/21 11:18 AM) Body Mass Index [18.5-24.99 kg/m2] 34.72 kg/m2 *>HHI* (12/01/21 11:18 AM) Blood Pressure [90-138/55-84 mm Hg] 110/ 73mm Hg (12/01/21 11:18 AM) Temperature [96.8-100.4 DegF] 97.8 DegF (12/01/21 11:18 AM) Blood pressure sites Arm, left (12/01/21 11:18 AM) Temperature Route Temporal (12/01/21 11:18 AM) Weight Obtained Via Patient/family state d (12/01/21 11:18 AM) Social History Social History Type Response Smoking Status Never smoker entered on: 03/26/13 Sex Patient Care team information Personnel Name: Doc Acharya MD Address: Address: [address] [place] [id number]
--- OUTSIDE RECORDS SUMMARY | 2023-09-30 21:26 | XMS_ITS | Continuity of Care Document ---
Author Organization [facility] Cecil lt Address [address] [place] [address]- Care Team Providers Care Audio Visual Design Engineer Name Role Phone Doc Acharya MD Primary Care Physician [phone] Encounter [facility] Date(s): 11/24/20 - 12/01/20 [facility] Adult [address] [place] [address]- Encounter Diagnosis Eczema(Discharge Diagnosis) - 11/24/20 Attending Physician: Doc Acharya MD Allergies, Adverse [...] toxoids (Td) 02/29/96 Given 1Result Comment: [02/18/2017] [facility]:[id number] 2Location History: [facility] 3Admin Note: [facility] 4Admin Note: [employer] 5Admin Note: [employer] 6Admin Note: per pt rcvd eklsewhere 7Admin Note: clinic [facility] Medications levothyroxine 0.088 mg oral tablet 1 tablet = 88 mcg, By Mouth, Daily, Labsork due begining of January 2021, # 30 tablet, 2 Refills, Maintenance, 11/27/20 7:18:00 EDT, Tablet, [facility], Partial fill upon patient request ifthe prescription is for a schedule II opioid drug.,... Start Date: 11/27/20 Status: Ordered Problem List Condition Effective Dates [...] [facility] [place] Diagnosis Diagnosis Type Effective Dates Health Status Clini [facility] Service Informant Eczema Discharge Diagnosis 11/24/20 Vital Signs Most recent to oldest [Reference Range]: 1 Height 170 cm (11/24/20 8:34 AM) Weight 93.3 kg (11/24/20 8:34 AM) Oxygen Saturation [94-100 %] 98 % (11/24/20 8:34 AM) Pulse Rate [55-90 bpm] 62 bpm (11/24/20 8:34 AM) Body Mass Index [18.5-24.99] 32.28 *>HHI* (11/24/20 8:34 AM) Blood Pressure [90-138/55-84 mm Hg] 120/ 80mm Hg (11/24/20 8:34 AM) Mode of Delivery (Oxygen) Room air (11/24/20 8:34 AM) Blood pressure sites Arm, left (11/24/20 8:34 AM) Weight Obtained Via Standing scale (11/24/20 8:34 AM) Social History Social History Type Response Smoking Status Never smoker entered on: 03/26/13 Sex
--- OUTSIDE RECORDS SUMMARY | 2023-09-30 21:26 | XMS_ITS | Continuity of Care Document ---
Author Organization [facility] Address [address] [facility] [place] [address]- Care Team Providers Care Brake Linings Coater Name Role Phone Doc Acharya MD Primary Care Physician Encounter 01/23/21 - 01/30/21 [facility] [address] [facility], [address] [place] [address]- Attending Physician: Joanna GALVAN, Starla Benavides Admitting Physician: Starla Marshall NP Referring Physician: Starla Marshall NP Allergies, Adverse Reactions, Alerts Substance Reaction [...] (Td) 02/29/96 Given 1Result Comment: [02/18/2017] [facility]:[id number] 2Location History: [facility] 3Admin Note: [facility] 4Admin Note: [employer] 5Admin Note: [employer] 6Admin Note: per pt rcvd eklsewhere 7Admin [...]
--- OUTSIDE RECORDS SUMMARY | 2023-09-30 21:27 | XMS_ITS | Continuity of Care Document ---
Author Organization [facility] Address [address] [place] [address]- Care Team Providers Care Fabricator Artificial Breast Name Role Phone Doc Acharya MD Primary Care Physician Encounter [facility] Date(s): 02/26/22 - 04/04/[address] [address] Attending Physician: Doc Acharya MD Admitting Physician: Doc Acharya MD Allergies, Adverse Reactions, Alerts Substance Reaction Severity Status epinephrine Active Novocain heavy breathing Active Latex Active Immunizations Given and Recorded Vaccine Date Status Refusal Reason SARS-CoV-2 mRNA (grcqfum-uwnv-uucpe) vax 1 12/04/21 Recorded influenza virus vaccine, [...] Given 1Result Comment: booster 2Result Comment: HD [facility]# [id number] 3Result Comment: [02/18/2017] [facility]:[id number] 4Location History: [facility] 5Admin Note: [facility] 6Admin Note: [employer] 7Admin Note: [employer] 8Admin Note: per pt rcvd eklsewhere 9Admin Note: clinic [facility] Medications hydrocortisone 2.5% topical cream See Instructions, APPLY TOPICALLY THREE TIMES A DAY, # 28 Gm, 0 Refills, Maintenance, 03/12/22 15:18:00 EST, [facility] # [facility], 30, APPLY TOPICALLY THREE TIMES A DAY, 168, cm, 01/06/22 13:21:00 EST, Height, 98, kg, 11/29/21 14:21:00 EDT, Dry Weight Start Date: 03/12/22 Status: Ordered levothyroxine 0.088 mg oral tablet See Instructions, TAKE ONE TABLET BY MOUTH EVERY DAY, # 30 tablet, 5 Refills, 10/15/21 10:54:00 EDT, [facility] # [facility], Early refill, 170, cm, [...] Name: Patrizia DOWNING, Doc Calzada Position: S Primary Care Physician Member Role: PCP Address: Address: [address] [place] [address]- Care Team Related Persons Name: CHRIS BAEZ Name: STELLA BAEZ Address: home [address] [place] [id number]
--- OUTSIDE RECORDS SUMMARY | 2023-09-30 21:27 | XMS_ITS | Continuity of Care Document ---
Author Organization [facility] Cecil lt Address [address] [place] [address]- Care Team Providers Care Brazer Repair And Salvage Name Role Phone Doc Acharya MD Primary Care Physician [facility] Date(s): 05/23/22 - 06/22/22 [facility] Adult [address] [place] [address]- Allergies, Adverse Reactions, Alerts Substance Reaction Severity Status epinephrine Active Novocain heavy breathing Active Latex Active Immunizations Given and Recorded Vaccine Date Status Refusal Reason SARS-CoV-2 mRNA ([id number]-cmvi-kkajl) vax 1 12/04/21 Recorded influenza virus vaccine, [...] 1Result Comment: booster 2Result Comment: HD [facility]# [id number] 3Result Comment: [02/18/2017] [facility]:[id number] 4Location History: [facility] 5Admin Note: [facility] 6Admin Note: [employer] 7Admin Note: [employer] 8Admin Note: per pt rcvd eklsewhere 9Admin Note: clinic ariel Medications hydrocortisone 2.5% topical cream See Instructions, APPLY TOPICALLY TO AFFECTED AREA THREE TIMES A DAY, # 28 Gm, 6 Refills, Maintenance, 06/14/22 10:25:00 EDT, [facility], 15, APPLY TOPICALLY TO AFFECTED AREA THREE TIMES A DAY, 168, cm, 05/18/22 12:13:00 EDT, Height, 98, kg,... Start Date: 06/14/22 Status: Ordered levothyroxine 0.088 mg oral tablet 1 tablet, By Mouth, Daily, # 30 tablet, 5 Refills, Maintenance, 04/13/22 6:31:00 EST, [facility], 168, cm, 01/06/22 13:21:00 [...] Confirmed Active 1Colonoscopy 2013 normal, repeat 4. 88149 negative repeat 2013 3egd 2008 negative barretts 4[place] by ct [place] [facility] [place] Social History Social History Type Response Smoking Status Never smoker entered on: 03/26/13 Sex Patient Care team information Care Team Personnel Name: Patrizia DOWNING, Doc Calzada Position: [facility] Primary Care Physician Member Role: PCP Address: Address: [address] [place] [address] [place] [address]- Care Team Related Persons Name: CHRIS BAEZ Name: STELLA BAEZ Address: home [address] [place] [id number]
--- OUTSIDE RECORDS SUMMARY | 2023-09-30 21:27 | XMS_ITS | Continuity of Care Document ---
Author Organization [facility] Address [address] [place] [address]- Care Team Providers Care Weaver Wire Loom Name Role Phone Patrizia DOWNING, Doc Calzada Primary Care Physician [phone] Encounter [facility] Date(s): 06/05/19 - 06/12/19 [facility] Adult [address] [place] [address]- [facility] Encounter Diagnosis Sore throat(Discharge Diagnosis) - 06/05/19 Runny nose(Discharge Diagnosis) - 06/05/19 Attending Physician: Michelle Gonsales NP Allergies, Adverse Reactions, [...] 02/29/96 Given 1Result Comment: [02/18/2017] [facility]:[id number] 2Location History: [facility] 3Admin Note: [facility] 4Admin Note: [facility] 5Admin Note: [facility] 6Admin Note: per pt rcvd eklsewhere 7Admin [...] barretts 4not[place] by [place] [facility] [place] Diagnosis Diagnosis Type Effective Dates Health Status Clini [facility] Service Informant Sore throat Discharge Diagnosis 06/05/19 Runny nose Discharge Diagnosis 06/05/19 Social History Social History Type Response Smoking Status Never smoker entered on: 03/26/13 Sex
--- OUTSIDE RECORDS SUMMARY | 2023-09-30 21:27 | XMS_ITS | Continuity of Care Document ---
Author Organization [facility] Cecil [place] Address [address] [place] [address]- Care Team Providers Care Front End Engineer Name Role Phone Doc Acharya MD Primary Care Physician [facility] Date(s): 12/18/21 - 01/17/22 [facility] Adult [address] [place] [address]- Allergies, Adverse Reactions, Alerts Substance Reaction Severity Status epinephrine Active Novocain heavy breathing Active Latex Active Immunizations Given and Recorded Vaccine Date Status Refusal Reason SARS-CoV-2 mRNA (typjbtf-ckrt-xfgna) vax 1 12/04/21 Recorded influenza virus vaccine, [...] Comment: HD [facility]# [id number] 3Result Comment: [02/18/2017] [facility]:[id number] 4Location History: [facility] 5Admin Note: [facility] 6Admin Note: [employer] 7Admin Note: [employer] 8Admin Note: per pt rcvd eklsewhere 9Admin Note: clinic ariel Medications hydrocortisone 2.5% topical cream See Instructions, APPLY TOPICALLY THREE TIMES A DAY, # 28 Gm, 0 Refills, Maintenance, 12/18/21 17:20:00 EDT, [facility], 30, APPLY TOPICALLY THREE TIMES A DAY, 168, cm, 12/01/21 11:18:00 EDT, Height, 98, kg, 11/29/21 14:21:00 EDT, Dry Weight Start Date: 12/18/21 Status: Ordered levothyroxine 0.088 mg oral tablet See Instructions, TAKE ONE TABLET BY MOUTH EVERY DAY, # 30 tablet, 5 Refills, 10/15/21 10:54:00 EDT, [facility], Early refill, 170, cm, [...] barretts 4noted by ct scan done at [facility] [place] 2009 Social History Social History Type Response Smoking Status Never smoker entered on: 03/26/13 Sex Patient Care team information Care Team Personnel Name: Patrizia DOWNING, Doc Calzada Position: S Primary Care Physician Member Role: PCP Address: Address: [address] [place] [address]- Care Team Related Persons Name: CHRIS BAEZ Name: STELLA BAEZ Address: home [address] [place] [address]
--- OUTSIDE RECORDS SUMMARY | 2023-09-30 21:27 | XMS_ITS | Continuity of Care Document ---
Author Organization [facility] Cecil lt Address [address] [place] [address]- Care Team Providers Care Drupal Web Developer Name Role Phone Doc Acharya MD Primary Care Physician [facility] Date(s): 10/21/22 - 11/20/22 [facility] Adult [address] [place] [address]- Attending Physician: Admtr, Ar8 Allergies, Adverse Reactions, Alerts Substance Reaction Severity Status epinephrine Active Novocain heavy breathing Active Latex Active Immunizations Given and Recorded Vaccine Date Status Refusal Reason SARS-CoV-2 mRNA (ahtxgik-fssw-ssvfl) vax 1 12/04/21 Recorded influenza virus vaccine, [...] 1Result Comment: booster 2Result Comment: HD [facility]# [id number] 3Result Comment: [02/18/2017] [facility]:[id number] 4Location History: [facility] 5Admin Note: [facility] 6Admin Note: [employer] 7Admin Note: [employer] 8Admin Note: per pt rcvd eklsewhere 9Admin Note: clinic ariel Medications hydrocortisone 2.5% topical cream See Instructions, APPLY TOPICALLY TO AFFECTED AREA THREE TIMES A DAY, # 28 Gm, 6 Refills, Maintenance, 06/14/22 10:25:00 EDT, [facility] # [facility], 15, APPLY TOPICALLY TO AFFECTED AREA THREE TIMES A DAY, 168, cm, 05/18/22 12:13:00 EDT, Height, 98, kg,... Start Date: 06/14/22 Status: Ordered levothyroxine 0.088 mg oral tablet 1 tablet, By Mouth, Daily, # 90 tablet, 3 Refills, Maintenance, 11/18/22 13:51:00 EDT, [facility], 168, cm, 10/21/22 6:56:00 [...] barretts 4noted by ct scan done at [facility] [place] 2009 Social History Social [...] Team Personnel Name: Doc Acharya MD Position: [facility] Physician - Primary Care Member Role: PCP Address: Address: [address] [place] [address]- Care Team Related Persons Name: CHRIS BAEZ Name: STELLA BAEZ Address: home [address] [place] [address]
--- OUTSIDE RECORDS SUMMARY | 2023-09-30 21:27 | XMS_ITS | Continuity of Care Document ---
Author Organization [facility] Cecil lt Address [address] [place] [address]- Care Team Providers Care Distance Education Coordinator Name Role Phone Doc Acharya MD Primary Care Physician [place] [facility] 12/23/21 - 12/30/21 [facility] Adult [address] [place] [address]- Attending Physician: John Garcia MD Allergies, Adverse Reactions, Alerts Substance Reaction Severity Status epinephrine Active Novocain heavy breathing Active Latex Active Immunizations Given and Recorded Vaccine Date Status Refusal Reason SARS-CoV-2 mRNA (gtprldv-nnih-ktesb) vax 1 12/04/21 Recorded influenza virus vaccine, [...] Given 1Result Comment: booster 2Result Comment: HD [facility]# [id number] 3Result Comment: [02/18/2017] [facility]:[id number] 4Location History: [facility] 5Admin Note: [facility] 6Admin Note: [employer] 7Admin Note: [employer] 8Admin Note: per pt rcvd eklsewhere 9Admin Note: clinic ariel Medications hydrocortisone 2.5% topical cream See Instructions, APPLY TOPICALLY THREE TIMES A DAY, # 28 Gm, 0 Refills, Maintenance, 12/18/21 17:20:00 EDT, [facility], 30, APPLY TOPICALLY THREE TIMES A DAY, 168, cm, 12/01/21 11:18:00 EDT, Height, 98, kg, 11/29/21 14:21:00 EDT, Dry Weight Start Date: 12/18/21 Status: Ordered levothyroxine 0.088 mg oral tablet See Instructions, TAKE ONE TABLET BY MOUTH EVERY DAY, # 30 tablet, 5 Refills, 10/15/21 10:54:00 EDT, [facility], Early refill, 170, cm, [...] 4noted by ct scan done [place] [facility] [place] 2009 Vital Signs Most recent to oldest [Reference Range]: 1 Height 168 cm (12/23/21 9:01 AM) Weight 96.7 kg (12/23/21 9:01 AM) Oxygen Saturation [94-100 %] 97 % (12/23/21 9:01 AM) Pulse Rate [55-90 bpm] 75 bpm (12/23/21 9:01 AM) Body Mass Index [18.5-24.99 kg/m2] 34.26 kg/m2 *>HHI* (12/23/21 9:01 AM) Blood Pressure [90-138/55-84 mm Hg] 90/6 6mm Hg (12/23/21 9:01 AM) Temperature [96.8-100.4 DegF] 97.6 DegF (12/23/21 9:01 AM) Mode of Delivery (Oxygen) Room air (12/23/21 9:01 AM) Blood pressure sites Arm, right (12/23/21 9:01 AM) Temperature Route Oral (12/23/21 9:01 AM) Weight Obtained Via Standing scale (12/23/21 9:01 AM) Social History Social History Type Response Smoking Status Never smoker entered on: 03/26/13 Sex Patient Care team information Personnel Name: Doc Acharya MD Address: Address: [address] [place] [id number]
--- OUTSIDE RECORDS SUMMARY | 2023-09-30 21:27 | XMS_ITS | Continuity of Care Document ---
Author Organization [facility] Address [address] [place] [address]- Care Team Providers Care Knit Goods Mender Name Role Phone Doc Acharya MD Primary Care Physician [phone] Encounter [facility] Date(s): 06/03/21 - 07/03/[address] [address] Attending Physician: Annie Chaney Admitting Physician: AdmtrAnnie Referring Physician: Admtr, Ar8 Allergies, Adverse Reactions, [...] toxoids (Td) 02/29/96 Given 1Result Comment: [02/18/2017] [facility]:[id number] 2Location History: [facility] 3Admin Note: [facility] 4Admin Note: [employer] 5Admin Note: [employer] 6Admin Note: per pt rcvd e[facility]where 7Admin Note: clinic ariel Medications [employer] Vaginal Cream 0.1 mg/g See Instructions, 1 gm vaginally daily at bedtime x one month and then reduce to twice a week, # 42.5 Gm, 0 Refills, Maintenance, 06/30/21 8:29:00 EDT, [facility], 170, cm, 06/30/21 8:09:00 EDT, Height Start Date: 06/30/21 Status: Ordered levothyroxine 0.088 mg oral tablet See Instructions, TAKE ONE TABLET BY MOUTH EVERY DAY, # 30 tablet, 2 Refills, [facility], 170, cm, 05/07/21 8:11:00 EST, Height Start Date: 05/18/21 Status: Ordered Macrobid macrocrystals-monohydrate 100 mg oral capsule 1 capsule = 100 mg, By Mouth, 2 times a day, for 5 days, # 10 capsule, 0 Refills, Acute 07/05/21 8:30:00 EDT, 06/30/21 8:30:00 EDT, Capsule, [facility], 170, cm, 06/30/21 8:09:00 EDT, Height Start Date: 06/30/21 Stop Date: 07/05/21 Status: Ordered Problem List Condition Effective Dates [...] [facility] 2010 Social History Social History Type Response Smoking Status Never smoker entered on: 03/26/13 Sex
--- OUTSIDE RECORDS SUMMARY | 2023-09-30 21:27 | XMS_ITS | Continuity of Care Document ---
Author Organization [facility] Address [address] [place] [address]- Care Team Providers Care Portrait Studio Photographer Name Role Phone Doc Acharya MD Primary Care Physician [place] [facility]10[place] - 07/08/[address] [address]- Encounter Diagnosis Other abnormalities of gait and mobility(Final) - Discharge Disposition: A-D/C Home Attending Physician: Doc Acharya MD Admitting Physician: Doc Acharya MD Referring Physician: Doc Acharya MD Allergies, Adverse Reactions, Alerts Substance Reaction Severity Status epinephrine Active Novocain heavy breathing Active Latex Active Immunizations Given and Recorded Vaccine Date Status Refusal Reason SARS-CoV-2 mRNA (oobznfp-prkv-fsogu) vax 1 12/04/21 Recorded influenza virus vaccine, [...] Given 1Result Comment: booster 2Result Comment: HD [facility]# [id number] 3Result Comment: [02/18/2017] [facility]:[id number] 4Location History: [facility] 5Admin Note: [facility] 6Admin Note: [employer] [facility] 7Admin Note: [employer] [facility] 8Admin Note: per pt rcvd [facility] 9Admin Note: [facility] Medications Augmentin 875 mg-125 mg oral tablet 1 tablet, By Mouth, Every 12 hours, for 7 days, # 14 tablet, 0 Refills, Acute 07/09/22 16:48:00 EDT, 07/02/22 16:48:00 EDT, Tablet, [facility], Partial fill upon patient request if the prescription is for a schedule II opioid drug., 168, cm,... Start Date: 07/02/22 Stop Date: 07/09/22 Status: Ordered codeine-guaifenesin 10 mg-100 mg/5 mL oral syrup 5 mL, By Mouth, Every 6 hours, PRN for cough and congestion, # 180 mL, 0 Refills, Acute 07/20/22 16:15:00 EDT, 07/06/22 15:43:00 EDT, Syrup, [facility] # [facility], Partial fill upon patient request if the prescription is for a schedule II opioid drug.,... Start Date: 07/06/22 Stop Date: 07/20/22 Status: Ordered codeine-guaifenesin 7.5 mg-225 mg/5 mL oral liquid 5 mL, By Mouth, Every 6 hours, PRN for cough, for 7 days, # 180 mL, 0 Refills, Acute 07/13/22 9:23:00 EDT, 07/06/22 9:23:00 EDT, Liquid, [facility] # [facility], Partial fill upon patient request if the prescription is for a schedule II opioid drug., 5 mL... Start Date: 07/06/22 Stop Date: 07/13/22 Status: Ordered hydrocortisone 2.5% topical cream See Instructions, APPLY TOPICALLY TO AFFECTED AREA THREE TIMES A DAY, # 28 Gm, 6 Refills, Maintenance, 06/14/22 10:25:00 EDT, [facility] # [facility], 15, APPLY TOPICALLY TO AFFECTED AREA THREE TIMES A DAY, 168, cm, 05/18/22 12:13:00 EDT, Height, 98, kg,... Start Date: 06/14/22 Status: Ordered levothyroxine 0.088 mg oral tablet 1 tablet, By Mouth, Daily, # 30 tablet, 5 Refills, Maintenance, 04/13/22 6:31:00 EST, [facility] # [facility], 168, cm, 01/06/22 13:21:00 EST, Height, 98, kg, 11/29/21 14:21:00 EDT, Dry Weight Start Date: 04/13/22 Status: Ordered physical therapy physical therapy, See Instructions, # 1 each, Refills 0, Tot. Refills 0, Maintenance, evaluate and treat for left knee pain, 05/18/22 12:54:00 EDT, Supply Start Date: 05/18/22 Status: Ordered Tessalon Perles 100 mg oral capsule 1 capsule = 100 mg, By Mouth, 3 times a day, for 7 days, # 21 capsule, 0 Refills, Acute 07/09/22 16:49:00 EDT, 07/02/22 16:49:00 EDT, Capsule, [facility] # [facility], Partial fill upon patient request if the prescription is for a schedule II opioid drug.... Start Date: 07/02/22 Stop Date: 07/09/22 Status: Ordered Problem List Condition Confirmation Course [...] Confirmed Active 1Colonoscopy 2013 normal, repeat 2023. 12021 negative repeat 2013 3egd 2008 negative barretts 4noted by ct scan done at [facility] [place] Social History Social History Type Response Smoking Status Never smoker entered on: 03/26/13 Sex Patient Care team information Care Team Personnel Name: Patrizia DOWNING, Doc Calzada Position: [facility] Primary Care Physician Member Role: PCP Address: Address: [address] [place] [address]- Care Team Related Persons Name: CHRIS BAEZ Name: STELLA BAEZ Address: home [address] [place] [address]
--- OUTSIDE RECORDS SUMMARY | 2023-09-30 21:27 | XMS_ITS | Continuity of Care Document ---
Author Organization [facility] Address [address] [place] [address]- Care Team Providers Care Artist Mannequin Coloring Name Role Phone Doc Acharya MD Primary Care Physician [facility] Date(s): 12/02/21 - 01/01/22 [facility] Adult [address] [place] [address]- Allergies, Adverse Reactions, Alerts Substance Reaction Severity Status epinephrine Active Novocain heavy breathing Active Latex Active Immunizations Given and Recorded Vaccine Date Status Refusal Reason SARS-CoV-2 mRNA (phntsel-rklz-vsjxb) vax 1 12/04/21 Recorded influenza virus vaccine, [...] Given 1Result Comment: booster 2Result Comment: HD [facility]# [id number] 3Result Comment: [02/18/2017] [facility]:[id number] 4Location History: [facility] 5Admin Note: [facility] 6Admin Note: [employer] 7Admin Note: [employer] 8Admin Note: per pt rcvd [facility] 9Admin Note: clinic [facility] Medications hydrocortisone 2.5% topical cream See Instructions, APPLY TOPICALLY THREE TIMES A DAY, # 28 Gm, 0 Refills, Maintenance, 12/18/21 17:20:00 EDT, [facility] # [facility], 30, APPLY TOPICALLY THREE TIMES A DAY, 168, cm, 12/01/21 11:18:00 EDT, Height, 98, kg, 11/29/21 14:21:00 EDT, Dry Weight Start Date: 12/18/21 Status: Ordered levothyroxine 0.088 mg oral tablet See Instructions, TAKE ONE TABLET BY MOUTH EVERY DAY, # 30 tablet, 5 Refills, 10/15/21 10:54:00 EDT, [facility] # [facility], Early refill, 170, cm, [...] Name: Patrizia DOWNING, Doc Calzada Address: Address: [address] [place] [id number]
--- OUTSIDE RECORDS SUMMARY | 2023-09-30 21:27 | XMS_ITS | Continuity of Care Document ---
Author Organization [facility] Address [address] [place] [address]- Care Team Providers Care Tariff Expert Name Role Phone Doc Acharya MD Primary Care Physician [phone] [facility]counter [facility] Date(s): 10/19/22 - 11/18/22 [facility] Adult [address] [place] [address]- Allergies, Adverse Reactions, Alerts Substance Reaction Severity Status epinephrine Active Novocain heavy breathing Active Latex Active Immunizations Given and Recorded Vaccine Date Status Refusal Reason SARS-CoV-2 mRNA (ciwqmmi-nuho-rofda) vax 1 12/04/21 Recorded influenza virus vaccine, [...] influenza virus vaccine, inactivated 5 12/21/12 Gi zakiay SARS-CoV-2 (COVID-19) mRNA-1273 vaccine 05/29/20 G iven [...] Given 1Result Comment: booster 2Result Comment: HD [facility]# [id number] 3Result Comment: [02/18/2017] [facility]:[id number] 4Location History: [facility] 5Admin Note: [facility] 6Admin Note: [employer] 7Admin Note: [employer] 8Admin Note: per pt rcvd [facility] 9Admin Note: [facility] Medications hydrocortisone 2.5% topical cream See Instructions, APPLY TOPICALLY TO AFFECTED AREA THREE TIMES A DAY, # 28 Gm, 6 Refills, Maintenance, 06/14/22 10:25:00 EDT, [facility], 15, APPLY TOPICALLY TO AFFECTED AREA THREE TIMES A DAY, 168, cm, 05/18/22 12:13:00 EDT, Height, 98, kg,... Start Date: 06/14/22 Status: Ordered levothyroxine 0.088 mg oral tablet 1 tablet, By Mouth, Daily, # 90 tablet, 3 Refills, Maintenance, 11/18/22 13:51:00 EDT, [facility], 168, cm, 10/21/22 6:56:00 [...] 4noted by ct scan done at [facility] [place] 2009 Social History Social History Type Response Smoking Status Never smoker entered on: 03/26/13 Sex Patient Care team information Care Team Personnel Name: Doc Acharya MD Position: [facility] Physician - Primary Care Member Role: PCP Address: Address: [address] [place] [address]- Care Team Related Persons Name: CHRIS BAEZ Name: STELLA BAEZ Address: home [address] [place] [address]
--- OUTSIDE RECORDS SUMMARY | 2023-09-30 21:27 | XMS_ITS | Continuity of Care Document ---
Author Organization [facility] Address [address] [place] [address]- Care Team Providers Care Indoor Landscape Architect Name Role Phone Doc Acharya MD Primary Care Physician [phone] [facility]counter [facility] Date(s): 12/02/21 - 01/01/22 [facility] Adult [address] [place] [address]- Allergies, Adverse Reactions, Alerts Substance Reaction Severity Status epinephrine Active Novocain heavy breathing Active Latex Active Immunizations Given and Recorded Vaccine Date Status Refusal Reason SARS-CoV-2 mRNA (wiagkgq-ozxd-jsbij) vax 1 12/04/21 Recorded influenza virus vaccine, [...] Given 1Result Comment: booster 2Result Comment: HD [facility]# [id number] 3Result Comment: [02/18/2017] [facility]:[id number] 4Location History: [facility] 5Admin Note: [facility] 6Admin Note: [employer] 7Admin Note: [employer] 8Admin Note: per pt rcvd [facility] 9Admin Note: [facility] Medications hydrocortisone 2.5% topical cream See Instructions, APPLY TOPICALLY THREE TIMES A DAY, # 28 Gm, 0 Refills, Maintenance, 12/18/21 17:20:00 EDT, [facility] # [facility], 30, APPLY TOPICALLY THREE TIMES A DAY, 168, cm, 12/01/21 11:18:00 EDT, Height, 98, kg, 11/29/21 14:21:00 EDT, Dry Weight Start Date: 12/18/21 Status: Ordered levothyroxine 0.088 mg oral tablet See Instructions, TAKE ONE TABLET BY MOUTH EVERY DAY, # 30 tablet, 5 Refills, 10/15/21 10:54:00 EDT, [facility] # [facility], Early refill, 170, cm, [...] barretts 4noted by ct scan done at [facility] [place] 2009 Social History Social History Type Response Smoking Status Never smoker entered on: 03/26/13 Sex Patient Care team information Personnel Name: Patrizia DOWNING, Doc Calzada Address: Address: [address] [place] [address]
--- OUTSIDE RECORDS SUMMARY | 2023-09-30 21:27 | XMS_ITS | Continuity of Care Document ---
Author Organization [facility] Address [address] [place] [address]- Care Team Providers Care Bilingual Administrative Assistant Name Role Phone Patrizia DOWNING, Doc Calzada Primary Care Physician Encounter [facility] Date(s): 06/30/21 - 07/07/21 [facility] Adult [address] [place] [address]- Attending Physician: Nathalia GALVAN, Minoo Benavides Referring Physician: Vinayak Acharya MD Allergies, Adverse Reactions, Alerts Substance [...] 11/27/09 Given Influenza Virus Vaccine (oldterm) 6 12/8/09 Given Influenza Virus Vaccine (oldterm) 01/05/08 Given Influenza Inactive (IM) (oldterm) 7 12/22/05 Given tetanus-diphtheria toxoids (Td) 12/09/05 Given tetanus-diphtheria toxoids (Td) 02/29/96 Given 1Result Comment: [02/18/2017] [facility]:[id number] 2Location History: [facility] 3Admin Note: [facility] 4Admin Note: [employer] 5Admin Note: [employer] 6Admin Note: per pt rcvd [facility]where 7Admin Note: clinic [facility] Medications Estrace Vaginal Cream 0.1 mg/g See Instructions, 1 gm vaginally daily at bedtime x one month and then reduce to twice a week, # 42.5 Gm, 0 Refills, Maintenance, 06/30/21 8:29:00 EDT, [facility] # [facility], 170, cm, 06/30/21 8:09:00 EDT, Height Start Date: 06/30/21 Status: Ordered levothyroxine 0.088 mg oral tablet See Instructions, TAKE ONE TABLET BY MOUTH EVERY DAY, # 30 tablet, 2 Refills, [facility] # [facility], 170, cm, 05/07/21 8:11:00 [...] barretts 4noted by ct scan done at [facility] [place] 2009 Vital Signs Most recent to oldest [Reference Range]: 1 Height 170 cm (06/30/21 8:09 AM) Weight 99.2 kg (06/30/21 8:09 AM) Oxygen Saturation [94-100 %] 98 % (06/30/21 8:09 AM) Pulse Rate [55-90 bpm] 88 bpm (06/30/21 8:09 AM) Body Mass Index [18.5-24.99] 34.33 *>HHI* (06/30/21 8:09 AM) Blood Pressure [90-138/55-84 mm Hg] 126/ 64mm Hg (06/30/21 8:09 AM) Respiratory Rate [16-30 br/min] 16 br/mi n (06/30/21 8:09 AM) Temperature [96.8-100.4 DegF] 97.4 DegF (06/30/21 8:09 AM) Mode of Delivery (Oxygen) Room air (06/30/21 8:09 AM) Blood pressure sites Arm, right (06/30/21 8:09 AM) Temperature Route Oral (06/30/21 8:09 AM) Weight Obtained Via Standing scale (06/30/21 8:09 AM) Social History Social History Type Response Smoking Status Never smoker entered on: 03/26/13 Sex
--- OUTSIDE RECORDS SUMMARY | 2023-09-30 21:27 | XMS_ITS | Continuity of Care Document ---
Author Organization [facility] Address [address] [place] [address]- Care Team Providers Care Certified Emergency Vehicle Technician Name Role Phone Doc Acharya MD Primary Care Physician [phone] [facility] Date[facility]s): 05/10/23 - 06/09/23 [facility] Adult [address] [place] [address]- Allergies, Adverse Reactions, Alerts Substance Reaction Severity [...] virus vaccine, inactivated 5 12/21/12 Gi zakiya [id number] bivalent booster vax 12/16/21 Recorded SARS-CoV-2 mRNA (vtzbtpu-avvn-fvcom) vax 6 12/04/21 Recorded SARS-CoV-2 (COVID-19) mRNA-1273 [...] tetanus-diphtheria toxoids (Td) 02/29/96 Given 1Result Comment: [id number] Checklist done 2Result Comment: [facility]# [id number] 3Result Comment: [02/18/2017] [facility]:[id number] 4Location History: [facility] 5Admin Note: [facility] 6Result Comment: booster 7Admin Note: [employer] 8Admin Note: [employer] 9Admin Note: per pt rcvd [facility] 10Admin Note: clinic [facility] Medications hydrocortisone 2.5% topical cream See Instructions, APPLY TOPICALLY TO AFFECTED AREA THREE TIMES A DAY, # 28 Gm, 6 Refills, Maintenance, 06/14/22 10:25:00 EDT, [facility] # [facility], 15, APPLY TOPICALLY TO AFFECTED AREA THREE TIMES A DAY, 168, cm, 05/18/22 12:13:00 EDT, Height, 98, kg,... Start Date: 06/14/22 Status: Ordered levothyroxine 0.088 mg oral tablet 1 tablet, By Mouth, Daily, # 90 tablet, 3 Refills, Maintenance, 11/18/22 13:51:00 EDT, [facility] # [facility], 168, cm, 10/21/22 6:56:00 [...] 4noted by ct scan done at [facility] [place] Social History Social History Type Response Smoking Status Never smoker entered on: 03/26/13 Sex Patient Care team information Care Team Personnel Name: Doc Acharya MD Position: S Physician - Primary Care Member Role: PCP Address: Address: [address] [place] [address]- Care Team Related Persons Name: CHRIS BAEZ Name: STELLA BAEZ Address: home [address] [place] [address]
--- OUTSIDE RECORDS SUMMARY | 2023-09-30 21:27 | XMS_ITS | Continuity of Care Document ---
Author Organization [facility] Address [address] [facility] [place] [address]- Care Team Providers Care Arm Maker Name Role Phone Doc Acharya MD Primary Care Physician Encounter 03/03/23 - 03/10/23 [facility] [address], [facility] [address] [place] [address]- Attending Physician: Jacquelin Palmer MD Admitting Physician: [...] virus vaccine, inactivated 5 12/21/12 Gi zakiya [id number] bivalent booster vax 12/16/21 Recorded SARS-CoV-2 mRNA (rvehjqx-qhdt-gdcdn) vax 6 12/04/21 Recorded SARS-CoV-2 (COVID-19) mRNA-1273 [...] tetanus-diphtheria toxoids (Td) 02/29/96 Given 1Result Comment: [id number] Checklist done 2Result Comment: [facility]# [id number] 3Result Comment: [02/18/2017] [facility]:[id number] 4Location History: [facility] 5Admin Note: [facility] 6Result Comment: booster 7Admin Note: [employer] 8Admin Note: [employer] 9Admin Note: per pt rcvd [facility] 10Admin Note: [facility] Medications hydrocortisone 2.5% topical cream See Instructions, APPLY TOPICALLY TO AFFECTED AREA THREE TIMES A DAY, # 28 Gm, 6 Refills, Maintenance, 06/14/22 10:25:00 EDT, [facility] # [facility], 15, APPLY TOPICALLY TO AFFECTED AREA THREE TIMES A DAY, 168, cm, 05/18/22 12:13:00 EDT, Height, 98, kg,... Start Date: 06/14/22 Status: Ordered levothyroxine 0.088 mg oral tablet 1 tablet, By Mouth, Daily, # 90 tablet, 3 Refills, Maintenance, 11/18/22 13:51:00 EDT, [facility] # [facility], 168, cm, 10/21/22 6:56:00 [...] barretts 4[place] [facility] [place] Results Radiology Reports * Exam Date Time Procedure Performing Provider Status 03/03/23 10:37 AM MM Digital Mammo Screening Caprice Calzada ce; Auth (Verified) Notes: (MM Digital Mammo Screening) Reason For Exam: Z12.31 SCREEN MM RESULT: MM Digital Mammo Screening PROCEDURE: MM Digital Mammo Screening INDICATION: Screening for breast cancer. No known palpable abnormalities. COMPARISON: Back to 01/11/2020. TECHNIQUE:Full-field digital CC and MLO 3D tomosynthesis images of both breasts were acquired. Computer-aided detection (CAD) was utilized in the interpretation of this study. DENSITY: Contains scattered areas of fibroglandular density. FINDINGS: No suspicious masses, microcalcifications, areas of architectural distortion, or skin thickening to suggest malignancy. IMPRESSION: No mammographic evidence of malignancy. RECOMMENDATION: Annual mammographic screening. BI-RADS: 1 (Negative) Lay letter mailed to patient WSN: [id number] Ordering Physician: Jacquelin Palmer MD Dictated By: Sang Tinajero MD Dictated Date/Time: 03/03/23 2:00 pm Reviewed By: Sang Tinajero MD Signed By: Sang Tinajero MD Signed Date/Time: 03/03/23 2:00 pm Transcribed By: SHELIA Sky Line Yarder Date/Time: 03/03/23 1:58 pm Birads: Social History Social History Type Response Smoking Status Never smoker entered on: 03/26/13 Sex Patient Care team information Care Team Personnel Name: Doc Acharya MD Position: S Physician - Primary Care Member Role: PCP Address: Address: [address] [place] [address]- Care Team Related Persons Name: CHRIS BAEZ Name: STELLA BAEZ Address: [address] [address]
--- OUTSIDE RECORDS SUMMARY | 2023-09-30 21:27 | XMS_ITS | Continuity of Care Document ---
Author Organization [facility] Address [address] [place] [address]- Care Team Providers Care Ceo And President Name Role Phone Patrizia DOWNING, Doc Calzada Primary Care Physician [facility] Date(s): 10/09/21 - 11/08/21 [facility] Adult [address] [place] [address]- Allergies, Adverse Reactions, Alerts Substance Reaction Severity [...] 02/29/96 Given 1Result Comment: [02/18/2017] [facility]:[id number] 2Location History: [facility] 3Admin Note: [facility] 4Admin Note: [employer] [facility] [employer] 5Admin Note: [employer] 6Admin Note: per pt rcvd [facility] 7Admin Note: [facility] Medications levothyroxine 0.088 mg oral tablet See Instructions, TAKE ONE TABLET BY MOUTH EVERY DAY, # 30 tablet, 5 Refills, 10/15/21 10:54:00 EDT, [facility], Early refill, 170, cm, 10/09/21 12:40:00 EDT, Height Start Date: 10/15/21 Status: Ordered Problem List Condition Effective Dates [...] [place] [facility] [place] Social History Social History Type Response Smoking Status Never smoker entered on: 03/26/13 Sex Care Team Personnel Name: Patrizia DOWNING, Doc Calzada Address: [address] [place] [id number]
--- OUTSIDE RECORDS SUMMARY | 2023-09-30 21:27 | XMS_ITS | Continuity of Care Document ---
Author Organization [facility] Address [address] [place] [address]- Care Team Providers Care Oral Communication Instructor Name Role Phone Doc Acharya MD Primary Care Physician [phone] [place] [facility] Date(s): 07/25/23 - 08/24/23 [facility] Adult [address] [place] [address]- Allergies, Adverse Reactions, Alerts Substance Reaction Severity [...] virus vaccine, inactivated 5 12/21/12 Gi zakiya [id number] bivalent booster vax 12/16/21 Recorded SARS-CoV-2 mRNA (yhmciho-wkhs-awhtv) vax 6 12/04/21 Recorded SARS-CoV-2 (COVID-19) mRNA-1273 [...] tetanus-diphtheria toxoids (Td) 02/29/96 Given 1Result Comment: [id number] Checklist done 2Result Comment: HD [facility]# [id number] 3Result Comment: [02/18/2017] [facility]:[id number] 4Location History: [facility] 5Admin Note: [facility] 6Result Comment: booster 7Admin Note: [employer] 8Admin Note: [employer] 9Admin Note: per pt rcvd [facility] 10Admin Note: [facility] Medications hydrocortisone 2.5% topical cream See Instructions, APPLY TOPICALLY TO AFFECTED AREA THREE TIMES A DAY, # 28 Gm, 6 Refills, Maintenance, 06/14/22 10:25:00 EDT, [facility] # [facility], 15, APPLY TOPICALLY TO AFFECTED AREA THREE TIMES A DAY, 168, cm, 05/18/22 12:13:00 EDT, Height, 98, kg,... Start Date: 06/14/22 Status: Ordered levothyroxine 0.088 mg oral tablet 1 tablet, By Mouth, Daily, # 90 tablet, 3 Refills, Maintenance, 11/18/22 13:51:00 EDT, [facility] # [facility], 168, cm, 10/21/22 6:56:00 EDT, Height, 98, kg, 11/29/21 14:21:00 EDT, Dry Weight Start Date: 11/18/22 Status: Ordered Nystop 856066 u/gm powder See Instructions, APPLY TOPICALLY TWO [...] [facility] 2009 Social History Social History Type Response Smoking Status Never smoker entered on: 03/26/13 Sex Patient Care team information Care Team Personnel Name: Patrizia DOWNING, Doc Calzada Position: [facility] Physician - Primary Care Member Role: PCP Address: Address: [address] [place] [address]- Care Team Related Persons Name: CHRIS BAEZ Name: STELLA BAEZ Address: home [address] [place] [address]
--- OUTSIDE RECORDS SUMMARY | 2023-09-30 21:27 | XMS_ITS | Continuity of Care Document ---
Author Organization [facility] Address [address] [place] [address] [address] [place] [address]- Care Team Providers Care Photograph Enlarger Name Role Phone Doc Acharya MD Primary Care Physician [facility] Date[facility]s): 05/31/23 - 06/07/23 [facility] [address] [place] [address] Attending Physician: Reji Acharya MD Referring Physician: Yisel Lyons Allergies, Adverse Reactions, [...] virus vaccine, inactivated 5 12/21/12 Gi zakiya [id number] bivalent booster vax 12/16/21 Recorded SARS-CoV-2 mRNA (yezkcoo-yfbl-xvmho) vax 6 12/04/21 Recorded SARS-CoV-2 (COVID-19) mRNA-1273 [...] tetanus-diphtheria toxoids (Td) 02/29/96 Given 1Result Comment: [id number] Checklist done 2Result Comment: [facility]# [id number] 3Result Comment: [02/18/2017] [facility]:[id number] 4Location History: [facility] 5Admin Note: [facility] 6Result Comment: booster 7Admin Note: [facility] 8Admin Note: [facility] 9Admin Note: per pt rcvd [facility]where 10Admin Note: [facility] Medications hydrocortisone 2.5% topical cream See Instructions, APPLY TOPICALLY TO AFFECTED AREA THREE TIMES A DAY, # 28 Gm, 6 Refills, Maintenance, 06/14/22 10:25:00 EDT, [facility], 15, APPLY TOPICALLY TO AFFECTED AREA THREE TIMES A DAY, 168, cm, 05/18/22 12:13:00 EDT, Height, 98, kg,... Start Date: 06/14/22 Status: Ordered levothyroxine 0.088 mg oral tablet 1 tablet, By Mouth, Daily, # 90 tablet, 3 Refills, Maintenance, 11/18/22 13:51:00 EDT, [facility], 168, cm, 10/21/22 [...] barretts 4[place] ct [place] [facility] [place] Vital Signs Most recent to oldest [Reference Range]: 1 Height 167.64 cm (05/31/23 1:12 PM) Weight 98.4 kg (05/31/23 1:12 PM) Body Mass Index [18.5-24.99 kg/m2] 35.01 kg/m2 *>HHI* (05/31/23 1:12 PM) Social History Social History Type Response Smoking Status Never smoker entered on: 03/26/13 Sex Patient Care team information Care Team Personnel Name: Doc Acharya MD Position: S Physician - Primary Care Member Role: PCP Address: Address: [address] [place] [address]- Care Team Related Persons Name: CHRIS BAEZ Name: STELLA BAEZ Address: home [address] [place] [id number]
--- OUTSIDE RECORDS SUMMARY | 2023-09-30 21:27 | XMS_ITS | Continuity of Care Document ---
Author Organization [facility] Address [address] [place] [address]- Care Team Providers Care Puncher Name Role Phone Doc Acharya MD Primary Care Physician [facility] 12[facility]07/19 - 12/14/19 [facility] Adult [address] [place] [address]- [facility] Attending Physician: Not on Staff, Attending MD [...] (Td) 02/29/96 Given 1Result Comment: [02/18/2017] [facility]:[id number] 2Location History: [facility] 3Admin Note: [facility] 4Admin Note: [facility] 5Admin Note: [facility] 6Admin Note: per pt rcvd eklsewhere 7Admin [...] barretts 4noted by ct scan [place] [facility] [place] Social History Social History Type Response Smoking Status Never smoker entered on: 03/26/13 Sex
--- OUTSIDE RECORDS SUMMARY | 2023-09-30 21:27 | XMS_ITS | Continuity of Care Document ---
Author Organization [facility] Address [address] [place] [address]- Care Team Providers Care Postdoctoral Scholar Name Role Phone Patrizia DOWNING, Doc Calzada Primary Care Physician [phone] [facility] Date[facility]s): 07/17/21 - 08/16/21 [facility] Adult [address] [place] [address]- Allergies, Adverse Reactions, Alerts Substance Reaction Severity [...] toxoids (Td) 02/29/96 Given 1Result Comment: [02/18/2017] [facility]:[id number] 2Location History: [facility] 3Admin Note: [facility] 4Admin Note: [facility] 5Admin Note: [facility] 6Admin Note: per pt rcvd e[facility]sewhere 7Admin Note: [facility] Medications estradiol 0.1 mg/g vaginal cream See Instructions, INSERT 1 GRAM VAGINALLY ONCE DAILY AT BEDTIME FOR 1 MONTH, THEN REDUCE TO TWICE WEEKLY THERAFTER., # 42.5 Gm, 0 Refills, [facility], 170, cm, 07/14/21 10:38:00 EDT, Height Start Date: 07/28/21 Status: Ordered levothyroxine 0.088 mg oral tablet See Instructions, TAKE ONE TABLET BY MOUTH EVERY DAY, # 30 tablet, 5 Refills, 08/16/21 10:08:00 EDT, [facility], 170, cm, 08/13/21 11:28:00 [...]
--- OUTSIDE RECORDS SUMMARY | 2023-09-30 21:28 | XMS_ITS | Continuity of Care Document ---
Author Organization [facility] ter Address [address] [place] [address]- Care Team Providers Care Ethanol Maintenance Mechanic Name Role Phone Doc Acharya MD Primary Care Physician [facility] Date[facility]s): 11/29/21 - 11/30/[address] [address]- Discharge Disposition: A-D/C Walkout Attending Physician: Not on Staff, Attending MD Admitting Physician: Not on Staff, Admitting MD Referring Physician: Not on Staff, Referring MD Allergies, Adverse Reactions, Alerts Substance Reaction [...] toxoids (Td) 02/29/96 Given 1Result Comment: [facility]# [id number] 2Result Comment: [02/18/2017] [facility]:[id number] 3[facility] 4Admin Note: [facility] 5Admin Note: [facility] 6Admin Note: [facility] 7Admin Note: per pt rcvd [facility]where 8Admin Note: [facility] Medications hydrocortisone 2.5% topical cream 1 application, Topically, 3 times a day, # 30 Gm, 0 Refills, Acute 12/24/21 0:00:00 EDT, 11/26/21 9:11:00 EDT, Cream, [facility], Partial fill upon [...] Confirmed Active 1Colonoscopy 2013 normal, repeat 2023. 79173 negative repeat 2013 3egd 2009 negative barretts 4noted by ct scan done [place] [facility] [place] 2009 Results Radiology Reports * Exam Date Time Procedure Performing Provider Status 11/29/21 2:50 PM Knee 1 or 2 Views Right Kaley Simpson ; Reggie (Verified) Notes: (Knee 1 or 2 Views Right) Reason For Exam: with Pain;Trauma RESULT: Knee 1 or 2 Views Right Knee 1 or 2 Views Right, 2 views Hx of Present Illness: Fall. Pain. COMPARISON: 07/14/2021 FINDINGS: There is no evidence of acute or healing fracture, dislocation or bone lesion. Mild tricompartmental degenerative osteoarthritis but no evidence of osteochondral defect or intra-articular loose body. No evidence of joint effusion. IMPRESSION: No fracture or malalignment. WSN: [id number] Ordering Physician: Jong Wright Dictated By: Marcelo García MD Dictated Date/Time: 11/29/21 3:10 pm Reviewed By: Marcelo García MD Signed By: Marcelo García MD Signed Date/Time: 11/29/21 3:10 pm Transcribed By: SHELIA Transcribed Date/Time: 11/29/21 3:09 pm Vital Signs Most recent to oldest [Reference Range]: 1 2 3 Height 168 cm (11/29/21 2:21 PM) Oxygen Saturation [94-100 %] 96 % (11/30/21 3:18 AM) 100 % (11/30/21 1:18 AM) 99 % (11/29/21 10:55 PM) Pulse Rate [55-90 bpm] 85 bpm (11/30/21 3:18 AM) 89 bpm (11/30/21 1:18 AM) 88 bpm (11/29/21 10:55 PM) Blood Pressure [90-138/55-84 mm Hg] 125/70mm Hg (11/30/21 3:18 AM) 150/75mm Hg *H* (11/30/21 1:18 AM) 146/74mm Hg *H* (11/29/21 10:55 PM) Respiratory Rate [16-30 br/min] 18 br/min (11/29/21 6:22 PM) 18 br/min (11/29/21 4:42 PM) 18 br/min (11/29/21 2:21 PM) Temperature [96.8-100.4 DegF] 97.9 DegF (11/30/21 3:18 AM) 98.1 DegF (11/30/21 1:18 AM) 98.7 DegF (11/29/21 10:55 PM) Mode of Delivery (Oxygen) Room air (11/30/21 3:18 AM) Room air (11/30/21 1:18 AM) Room air (11/29/21 10:55 PM) Blood pressure sites Arm, left (11/30/21 3:18 AM) Arm, left (11/30/21 1:18 AM) Arm, left (11/29/21 10:55 PM) Temperature Route Oral (11/30/21 1:18 AM) Oral (11/29/21 10:55 PM) Oral (11/29/21 8:38 PM) Dry Weight 98 kg (11/29/21 2:21 PM) Dry Weight Obtained Via Patient/family s tated (11/29/21 2:21 PM) Social History Social History Type Response Smoking Status Never smoker entered on: 03/26/13 Sex XR Knee - right 1 or 2 Views * [facility] , CIS S: TRANSCRIBE Marcelo García MD: VERIFY Event Display: Result: Authored Date: [id number] Knee 1 or 2 Views Right, 2 views Hx of Present Illness: Fall. Pain. COMPARISON: 07/14/2021 FINDINGS: There is no evidence of acute or healing fracture, dislocation or bone lesion. Mild tricompartmental degenerative osteoarthritis but no evidence of osteochondral defect or intra-articular loose body. No evidence of joint effusion. IMPRESSION: No fracture or malalignment. WSN: [id number] Ordering Physician: Jong Wright Dictated By: Marcelo García MD Dictated Date/Time: 11/29/21 3:10 pm Reviewed By: Marcelo García MD Signed By: Marcelo García MD Signed Date/Time: 11/29/21 3:10 pm Transcribed By: SHELIA Transcribed Date/Time: 11/29/21 3:09 pm Patient Care team information Personnel Name: Patrizia DOWNING, Doc Calzada Address: Address: [address] [place] [address]-
--- OUTSIDE RECORDS SUMMARY | 2023-09-30 21:28 | XMS_ITS | Continuity of Care Document ---
Author Organization [facility] lt Address [address] [place] [address]- Care Team Providers Care Jewelry Inspector Name Role Phone Doc Acharya MD Primary Care Physician Encounter [facility] Date(s): 11/26/21 - 12/03/21 [facility] Adult [address] [place] [address]- Attending Physician: Michelle Gonsales NP Referring Physician: Doc Acharya MD Allergies, Adverse [...] 11/18/13 Bernt rded influenza virus vaccine, inactivated 3 11/18/13 [...] toxoids (Td) 02/29/96 Given 1Result Comment: [facility]# [id number] 2Result Comment: [02/18/2017] [facility]:[id number] 3Location History: [facility] 4Admin Note: [facility] 5Admin Note: [facility] 6Admin Note: [facility] 7Admin Note: per pt rcvd eklsewhere 8Admin [...] 30 tablet, 5 Refills, 10/15/21 10:54:00 EDT, [facility], Early refill, 170, [...] barretts 4[place] [facility] [place] Vital Signs Most recent to oldest [Reference Range]: 1 Height 170 cm (11/26/21 8:48 AM) Weight 97.3 kg (11/26/21 8:48 AM) Oxygen Saturation [94-100 %] 98 % (11/26/21 8:48 AM) Pulse Rate [55-90 bpm] 70 bpm (11/26/21 8:48 AM) Body Mass Index [18.5-24.99 kg/m2] 33.67 kg/m2 *>HHI* (11/26/21 8:48 AM) Blood Pressure [90-138/55-84 mm Hg] 116/ 70mm Hg (11/26/21 8:48 AM) Respiratory Rate [16-30 br/min] 20 br/mi n (11/26/21 8:48 AM) Mode of Delivery (Oxygen) Room air (11/26/21 8:48 AM) Blood pressure sites Arm, left (11/26/21 8:48 AM) Weight Obtained Via Standing scale (11/26/21 8:48 AM) Social History Social History Type Response Smoking Status Never smoker entered on: 03/26/13 Sex Patient Care team information Personnel Name: Doc Acharya MD Address: Address: [address] [place] [address]-
--- OUTSIDE RECORDS SUMMARY | 2023-09-30 21:28 | XMS_ITS | Continuity of Care Document ---
Author Organization [facility] ter Address [address] [place] [address]- Care Team Providers Care Assembly Inspector Name Role Phone Doc Acharya MD Primary Care Physician [phone] Encounter [facility] Date(s): 05/03/19 - 05/03/[address] [address]- [place] Encounter Diagnosis Fall(Final) - 05/03/19 Abrasion of lip(Final) - 05/03/19 Abrasion of head(Final) - 05/03/19 Elbow pain(Final) - 05/03/19 Discharge Disposition: A-D/C Home Attending Physician: Yojana Blue DO Admitting Physician: Yojana Blue DO Referring Physician: Not on Staff, Referring MD [...] toxoids (Td) 02/29/96 Given 1Result Comment: [02/18/2017] [facility]:[id number] 2Location History: [facility] 3Admin Note: [facility] 4Admin Note: [employer] 5Admin Note: [employer] 6Admin Note: per pt rcvd eklsewhere 7Admin [...] Right aortic arch(Confirmed) Active Seasonal allergies(Confirmed) Active 1Colonoscopy 2013 normal, repeat negative repeat 2013 3egd 2009 negative barretts 4noted by ct scan done [place] [facility] [place] 2009 Results Radiology Reports * Exam Date Time Procedure Performing Provider Status 05/03/19 11:14 AM Elbow Min 3 Views Right Manny Car idad; Auth (Verified) Notes: (Elbow Min 3 Views Right) Reason For Exam: Trauma RESULT: Elbow Min 3 Views Right Elbow Min 3 Views Right, 3 views Reason: Trauma; Clinical Question(s): Fracture; COMPARISON: None. FINDINGS: No dislocation. Chronic deformity of the radial head. No definite acute fracture is identified. Arthritic changes at the elbow joint. IMPRESSION: Sequelae of remote trauma. No definite acute osseous abnormality identified. WSN: [id number] Ordering Physician: Margo Dyson Dictated By: Mathew Castrejon MD Dictated Date/Time: 05/03/19 11:18 a Reviewed By: Mathew Castrejon MD Signed By: Mathew Castrejon MD Signed Date/Time: 05/03/19 11:18 am Transcribed By: SHELIA Transcribed Date/Time: 05/03/19 11:17 am Vital Signs Most recent to oldest [Reference Range]: 1 2 Oxygen Saturation [94-100 %] 96 % (05/03/19 12:00 PM) 96 % (05/03/19 10:46 AM) Pulse Rate [55-90 bpm] 80 bpm (05/03/19 12:00 PM) 86 bpm (05/03/19 10:46 AM) Blood Pressure [90-138/55-84 mm Hg] 155/ 80mm Hg *H* (05/03/19 12:00 PM) 159/86mm Hg *H* (05/03/19 10:46 AM) Respiratory Rate [16-30 br/min] 19 br/mi n (05/03/19 12:00 PM) 20 br/min (05/03/19 10:46 AM) Temperature [96.8-100.4 DegF] 98.2 DegF (05/03/19 10:46 AM) Mode of Delivery (Oxygen) Room air (05/03/19 12:00 PM) Room air (05/03/19 10:46 AM) Blood pressure sites Arm, left (05/03/19 12:00 PM) Arm, left (05/03/19 10:46 AM) Temperature Route Oral (05/03/19 10:46 AM) Social History Social History Type Response Smoking Status Never smoker entered on: 03/26/13 Sex
--- OUTSIDE RECORDS SUMMARY | 2023-09-30 21:28 | XMS_ITS | Continuity of Care Document ---
Author Organization [facility] Address [address] [facility], [facility] [address] [place] [address]- Care Team Providers Care Rn Case Mgr Name Role Phone Dianna Mitchell MD Primary Care Physician [phone] Encounter 12/19/19 - 12/26/19 [facility] [address], [facility] [address] [place] [address]- [phone] Attending Physician: Dianna Mitchell MD Admitting Physician: Dianna Mitchell MD Referring Physician: Dianna Mitchell MD Allergies, Adverse Reactions, Alerts Substance Reaction [...] toxoids (Td) 02/29/96 Given 1Result Comment: [02/18/2017] [facility]:[id number] 2Location History: [facility] 3Admin Note: [facility] 4Admin Note: [facility] 5Admin Note: [facility] 6Admin Note: per pt rcvd eklsewhere 7Admin [...] barretts 4noted by ct scan done [place] [facility] [place] 2009 Results Radiology Reports * Exam Date Time Procedure Performing Provider Status 12/19/19 9:06 AM Dexa Bone Density (Axial) Huber Toro; Reggie (Verified) Notes: (Dexa Bone Density (Axial)) Reason For Exam: Osteopenia RESULT: DEXA BONE DENSITY (AXIAL) Bone Density Report Name: BING SKELTON Age: 64 Sex: Female Ethnicity: White Date of : 1955 Indication: OSTEOPENIA. Referring Provider: DIANNA MITCHELL MD Study: Bone densitometry was performed. Exam Date: December 19, 2019 Accession number: [id number] Bone Density: Region BMD T-score Z-score Classification AP Spine (L1-L4) 0.930 -1.1 0.8 Osteopenia Femoral Neck (Left) 0.692 -1.4 0.2 Osteopenia Total Hip (Left) 0.832 -0.9 0.4 Normal World Health Organization criteria for BMD impression classify patients as: Normal (T-score at or above -1.0), Osteopenia (T-score between -1.0 and -2.5), or Osteoporosis (T-score at or below -2.5). 10-year Fracture Risk(1): Major Osteoporotic Fracture 8.5% Hip Fracture 0.9% Reported Risk Factors: [place] (), Neck BMD=0.692, BMI=32.1 (1) FRAX(R) Version 3.00. Fracture probability calculated for an untreated patient. Fracture probability may be lower if the patient has received treatment. Previous Exams: Region Exam Age BMD T-score BMD Change BMD Change Date g/cm2 vs Baseline vs Previous AP Spine(L1-L4) 12/19/2019 64 0.930 -1.1 -8.2%* -8.2%* 12/24/2010 55 1.014 -0.3 Total Hip(Left) 12/19/2019 64 0.832 -0.9 -6.2%* -6.2%* 12/24/2010 55 0.887 -0.5 Femoral Neck(Left) 12/19/2019 64 0.692 -1.4 -8.3%* -8.3%* 12/24/2010 55 0.755 -0.8 *Denotes significance at 95% confidence level, LSC for AP Spine = 0.022 g/cm2, LSC for Total Hip = 0.027 g/cm2 Clinical Information Provided by Patient: Has used the following medications: Vitamin D, LEVOTHYROXINE Patient maximum height was 67.0 Menopause Age: 51 Onset of menses at age 10 Number of children 0 Impression: The patient has osteopenia as determined by WHO criteria. Based on the results of the patient???s bone density assessment, the risk of future fracture increases approximately two fold for each 1.0 SD decrease in T-score. However, low BMD is not the only risk factor for a future fragility fracture. Other clinical risk factors for osteoporotic fracture should be considered in ascertaining this patient???s future fracture risk including the patient???s age, previous osteoporotic (fragility) fracture, estrogen deficiency/hypogonadism, risk of falling, use of medications implicated in bone loss (glucocorticoids), family history of osteoporotic fracture, diseases and conditions associated with bone loss, low body weight, smoking, high bone turnover, etc. Combining low BMD and other clinical risk factors result in a more precise assessment of future fracture risk. Secondary causes for osteoporosis, such as osteomalacia, other metabolic bone disorders, and diseases and conditions that may contribute to accelerated bone loss may have to be considered depending on the clinical situation. A repeat bone density assessment should be considered in two years. Reported by: Quin Erazo M.D. on 12/19/2019 3:15:00 PM. Dictated By: Quin Erazo MD Dictated Date/Time: 12/19/19 3:15 pm Reviewed By: Quin Erazo MD Signed By: Quin Erazo MD Signed Date/Time: 12/19/19 3:15 pm Transcribed By: SHELIA Transcribed Date/Time: 12/19/19 3:15 pm Social History Social History Type Response Smoking Status Never smoker entered on: 03/26/13 Sex
--- OUTSIDE RECORDS SUMMARY | 2023-09-30 21:28 | XMS_ITS | Continuity of Care Document ---
Author Organization [facility] lt Address [address] [place] [address]- Care Team Providers Care Steam Table Worker Name Role Phone Doc Acharya MD Primary Care Physician [phone] [facility] 04[facility]14[facility]20 - 05/14/20 [facility] Adult [address] [place] [address]- Allergies, Adverse Reactions, Alerts Substance Reaction Severity [...] Comment: [02/18/2017] [facility]:[id number] 2Location History: [facility] 3Admin Note: [facility] 4Admin Note: [facility] 5Admin Note: [facility] 6Admin Note: per pt rcvd [facility] 7Admin [...] barretts 4noted by ct scan [facility] [place] 2009 Social History Social History Type Response Smoking Status Never smoker entered on: 03/26/13 Sex
--- OUTSIDE RECORDS SUMMARY | 2023-09-30 21:28 | XMS_ITS | Continuity of Care Document ---
Author Organization [facility] lt Address [address] [place] [address]- Care Team Providers Care Hospice Music Therapy Name Role Phone Patrizia DOWNING, Doc Calzada Primary Care Physician [facility]): 12/07/19 - 01/06/20 [facility] Adult [address] [place] [address]- Attending Physician: Admtr, Ar8 Allergies, Adverse Reactions, Alerts Substance Reaction Severity Status epinephrine Active Novocain heavy breathing Active Immunizations Given and Recorded Vaccine Date Status Refusal Reason influenza virus vaccine, inactivated 12/07/19 Give n influenza virus vaccine, inactivated 1 02/18/17 Gi zakiya influenza virus vaccine, inactivated 10/12/15 Give n influenza virus vaccine, inactivated 10/07/15 Brnet rded influenza virus vaccine, inactivated 01/19/15 Give [...] Given 1Result Comment: [02/18/2017] [facility]:[id number] 2Location History: [facility] 3Admin Note: [facility] 4Admin Note: [employer] 5Admin Note: [employer] 6Admin Note: per pt rcvd [facility] 7Admin [...] done at [facility] [place] 2010 Social History Social History Type Response Smoking Status Never smoker entered on: 03/26/13 Sex
--- OUTSIDE RECORDS SUMMARY | 2023-09-30 21:28 | XMS_ITS | Continuity of Care Document ---
Author Organization [facility] Address [address] [place] [address]- Care Team Providers Care Sugar Drier Name Role Phone Doc Acharya MD Primary Care Physician Encounter [facility] Date(s): 09/15/21 - 09/22/21 [facility] Adult [address] [place] [address]- Encounter Diagnosis Exposure to COVID-19 virus(Discharge Diagnosis) - 09/15/21 Attending Physician: Anne Samuel NP Referring Physician: Doc Acharya MD Allergies, [...] (Td) 02/29/96 Given 1Result Comment: [02/18/2017] [facility]:[id number] 2Location History: [facility] 3Admin Note: [facility] 4Admin Note: [employer] 5Admin Note: [employer] 6Admin Note: per pt rcvd [facility] 7Admin Note: [facility] Medications estradiol 0.1 mg/g vaginal cream See Instructions, INSERT 1 GRAM VAGINALLY ONCE DAILY AT BEDTIME FOR 1 MONTH, THEN REDUCE TO TWICE WEEKLY THERAFTER., # 42.5 Gm, 0 Refills, [facility], 170, cm, 08/13/21 11:28:00 EDT, Height Start Date: 09/01/21 Status: Ordered levothyroxine 0.088 mg oral tablet See Instructions, TAKE ONE TABLET BY MOUTH EVERY DAY, # 30 tablet, 5 Refills, 08/16/21 10:08:00 EDT, [facility], 170, cm, 08/13/21 11:28:00 [...] 4noted by ct scan done [place] [facility] [place] Diagnosis Diagnosis Type Effective Dates Health Status Cl inical Service Informant Exposure to COVID-19 virus Discharge Diagnosis 09/15/21 Vital Signs Most recent to oldest [Reference Range]: 1 Height 170 cm (09/15/21 8:36 AM) Social History Social History Type Response Smoking Status Never smoker entered on: 03/26/13 Sex
--- OUTSIDE RECORDS SUMMARY | 2023-09-30 21:28 | XMS_ITS | Continuity of Care Document ---
Author Organization [facility] Address [address] [place] [address]- Care Team Providers Care Backpackers Manager Name Role Phone Patrizia DOWNING, Doc Calzada Primary Care Physician Encounter [facility] [place] Date(s): 11/27/21 - 12/30/[address] [address] Attending Physician: Doc Acharya MD Admitting Physician: Doc Acharya MD Referring Physician: Dru GALVAN, Michelle Henderson Allergies, Adverse Reactions, Alerts Substance Reaction Severity Status epinephrine Active Novocain heavy breathing Active Latex Active Immunizations Given and Recorded Vaccine Date Status Refusal Reason SARS-CoV-2 mRNA ([id number]) vax 1 12/04/21 Recorded influenza virus vaccine, [...] Given 1Result Comment: booster 2Result Comment: [facility]# [id number] 3Result Comment: [02/18/2017] [facility]:[id number] 4Location History: [facility] 5Admin Note: [facility] 6Admin Note: [employer] 7Admin Note: [employer] 8Admin Note: per pt rcvd eklsewhere 9Admin Note: [facility] Medications hydrocortisone 2.5% topical cream See Instructions, APPLY TOPICALLY THREE TIMES A DAY, # 28 Gm, 0 Refills, Maintenance, 12/18/21 17:20:00 EDT, [facility] # [facility], 30, APPLY TOPICALLY THREE TIMES A DAY, 168, cm, 12/01/21 11:18:00 EDT, Height, 98, kg, 11/29/21 14:21:00 EDT, Dry Weight Start Date: 12/18/21 Status: Ordered levothyroxine 0.088 mg oral tablet See Instructions, TAKE ONE TABLET BY MOUTH EVERY DAY, # 30 tablet, 5 Refills, 10/15/21 10:54:00 EDT, [facility] # [facility], Early refill, 170, cm, [...] barretts 4noted by ct scan done at [facility] [place] 2009 Social History Social History Type Response Smoking Status Never smoker entered on: 03/26/13 Sex Patient Care team information Personnel Name: Patrizia DOWNING, Doc Calzada Address: Address: [address] [place] [address]
--- OUTSIDE RECORDS SUMMARY | 2023-09-30 21:28 | XMS_ITS | Continuity of Care Document ---
Author Organization [facility] Address [address] [place] [address]- Care Team Providers Care Mathematics Faculty Member Name Role Phone Patrizia ODWNING, Doc Calzada Primary Care Physician Encounter [facility] Date(s): 05/24/19 - 06/03/[address] [address]- [facility] Attending Physician: Annie Chaney Admitting Physician: Annie Chaney Referring Physician: AdmtrAnnie Allergies, Adverse Reactions, Alerts Substance Reaction Severity [...] (Td) 02/29/96 Given 1Result Comment: [02/18/2017] [facility]:[id number] 2Location History: [facility] 3Admin Note: [facility] 4Admin Note: [employer] 5Admin Note: [employer] 6Admin Note: per pt rcvd eklsewhere [...] barretts 4noted by ct scan done at [facility] [place] 2009 Social History Social History Type Response Smoking Status Never smoker entered on: 03/26/13 Sex
--- OUTSIDE RECORDS SUMMARY | 2023-09-30 21:28 | XMS_ITS | Continuity of Care Document ---
Author Organization [facility] Address [address] [place] [address]- Care Team Providers Care Body Shop Mechanic Name Role Phone Patrizia DOWNING, Doc Calzada Primary Care Physician [place] [facility] [place] 10/09/21 - 10/16/21 [facility] Adult [address] [place] [address]- Encounter Diagnosis Neck pain(Discharge Diagnosis) - 10/09/21 Vertigo(Discharge Diagnosis) - 10/09/21 Attending Physician: Not on Staff, Attending MD [...] Given 1Result Comment: [02/18/2017] [facility]:[id number] 2Location History: [facility] 3Admin Note: [facility] 4Admin Note: [employer] 5Admin Note: [employer] 6Admin Note: per pt rcvd eklsewhere 7Admin [...] Dates Health Status Clini freida Service Informant Neck pain Discharge Diagnosis 10/09/21 Vertigo Discharge Diagnosis 10/09/21 Vital Signs Most recent to oldest [Reference Range]: 1 Height 170 cm (10/09/21 12:40 PM) Weight 97.0 kg (10/09/21 12:40 PM) Oxygen Saturation [94-100 %] 98 % (10/09/21 12:40 PM) Pulse Rate [55-90 bpm] 77 bpm (10/09/21 12:40 PM) Body Mass Index [18.5-24.99] 33.56 *>HHI* (10/09/21 12:40 PM) Respiratory Rate [16-30 br/min] 20 br/mi n (10/09/21 12:40 PM) Weight Obtained Via Standing scale (10/09/21 12:40 PM) Social History Social History Type Response Smoking Status Never smoker entered on: 03/26/13 Sex
--- OUTSIDE RECORDS SUMMARY | 2023-09-30 21:28 | XMS_ITS | Continuity of Care Document ---
Author Organization [facility] Address [address] [place] [address]- Care Team Providers Care Pharmacist Helper Name Role Phone Patrizia DOWNING, Doc Calzada Primary Care Physician [phone] Encounter [facility] Date(s): 11/21/19 - 12/21/19 [facility] Adult [address] [place] [address]- [facility] Allergies, Adverse Reactions, Alerts Substance Reaction Severity [...] (Td) 02/29/96 Given 1Result Comment: [02/18/2017] [facility]:[id number] 2Location History: [facility] 3Admin Note: [facility] 4Admin Note: [employer] 5Admin Note: [employer] 6Admin Note: per pt rcvd eklsewhere 7Admin [...] at [facility] [place] Social History Social History Type Response Smoking Status Never smoker entered on: 03/26/13 Sex
--- OUTSIDE RECORDS SUMMARY | 2023-09-30 21:28 | XMS_ITS | Continuity of Care Document ---
Author Organization [facility] Address [address] [place] [address]- Care Team Providers Care Communications Tech Name Role Phone Patrizia DOWNING, Doc Calzada Primary Care Physician [phone] Encounter [facility] Date(s): 11/17/19 - 12/17/19 [facility] Adult [address] [place] [address] Allergies, Adverse Reactions, Alerts Substance Reaction [...] (Td) 02/29/96 Given 1Result Comment: [02/18/2017] [facility]:[id number] 2Location History: [facility] 3Admin Note: [facility] 4Admin Note: [employer] 5Admin Note: [employer] 6Admin Note: per pt rcvd eklsewhere [...] by [place] [facility] [place] Social History Social History Type Response Smoking Status Never smoker entered on: 03/26/13 Sex
--- OUTSIDE RECORDS SUMMARY | 2023-09-30 21:28 | XMS_ITS | Continuity of Care Document ---
Author Organization [facility] Address [address] [place] [address]- Care Team Providers Care Nut Sheller Machine Operator Name Role Phone Doc Acharya MD Primary Care Physician Encounter [facility] Date(s): 01/06/22 - 01/13/22 [facility] Adult [address] [place] [address]- Attending Physician: Doc Acharya MD Allergies, Adverse Reactions, Alerts Substance Reaction Severity Status epinephrine Active Novocain heavy breathing Active Latex Active Immunizations Given and Recorded Vaccine Date Status Refusal Reason SARS-CoV-2 mRNA ([id number]) vax 1 12/04/21 Recorded influenza virus vaccine, [...] Given 1Result Comment: booster 2Result Comment: [facility]# [id number] 3Result Comment: [02/18/2017] [facility]:[id number] 4Location History: [facility] 5Admin Note: [facility] 6Admin Note: [employer] 7Admin Note: [employer] 8Admin Note: per pt rcvd eklsewhere 9Admin Note: [facility] Medications hydrocortisone 2.5% topical cream See Instructions, APPLY TOPICALLY THREE TIMES A DAY, # 28 Gm, 0 Refills, Maintenance, 12/18/21 17:20:00 EDT, [facility] # [facility], 30, APPLY TOPICALLY THREE TIMES A DAY, 168, cm, 12/01/21 11:18:00 EDT, Height, 98, kg, 11/29/21 14:21:00 EDT, Dry Weight Start Date: 12/18/21 Status: Ordered levothyroxine 0.088 mg oral tablet See Instructions, TAKE ONE TABLET BY MOUTH EVERY DAY, # 30 tablet, 5 Refills, 10/15/21 10:54:00 EDT, [facility] # [facility], Early refill, 170, cm, [...] barretts 4[place] by [place] [facility] [place] Vital Signs Most recent to oldest [Reference Range]: 1 Height 168 cm (01/06/22 1:21 PM) Weight 99.3 kg (01/06/22 1:21 PM) Oxygen Saturation [94-100 %] 80 % *L* (01/06/22 1:21 PM) Pulse Rate [55-90 bpm] 108 bpm *H* (01/06/22 1:21 PM) Body Mass Index [18.5-24.99 kg/m2] 35.18 kg/m2 *>HHI* (01/06/22 1:21 PM) Blood Pressure [90-138/55-84 mm Hg] 125/ 70mm Hg (01/06/22 1:21 PM) Mode of Delivery (Oxygen) Room air (01/06/22 1:21 PM) Blood pressure sites Arm, left (01/06/22 1:21 PM) Weight Obtained Via Standing scale (01/06/22 1:21 PM) Social History Social History Type Response Smoking Status Never smoker entered on: 03/26/13 Sex Patient Care team information Care Team Personnel Name: Doc Acharya MD Position: S Primary Care Physician Member Role: PCP Address: Address: [address] [place] [address]- Care Team Related Persons Name: CHRIS BAEZ Name: STELLA BAEZ Address: home [address] [place] [address]
--- OUTSIDE RECORDS SUMMARY | 2023-09-30 21:28 | XMS_ITS | Continuity of Care Document ---
Author Organization [facility] Address [address] [place] [address]- Care Team Providers Care Business Data Analyst Name Role Phone Doc Acharya MD Primary Care Physician Encounter [facility] Date(s): 02/09/22 - 03/11/22 [facility] Adult [address] [place] [address]- Allergies, Adverse Reactions, Alerts Substance Reaction Severity Status epinephrine Active Novocain heavy breathing Active Latex Active Immunizations Given and Recorded Vaccine Date Status Refusal Reason SARS-CoV-2 mRNA (zvpoyvq-[id number]-mkoor) vax 1 12/04/21 Recorded influenza virus vaccine, [...] booster 2Result Comment: [facility]# [id number] 3Result Comment: [02/18/2017] [facility]:[id number] 4Location History: [facility] 5Admin Note: [facility] 6Admin Note: [employer] 7Admin Note: [employer] 8Admin Note: per pt rcvd eklsewhere 9Admin Note: [facility] Medications hydrocortisone 2.5% topical cream See Instructions, APPLY TOPICALLY THREE TIMES A DAY, # 28 Gm, 0 Refills, Maintenance, 02/09/22 16:03:00 EST, [facility] # [facility], 30, APPLY TOPICALLY THREE TIMES A DAY, 168, cm, 01/06/22 13:21:00 EST, Height, 98, kg, 11/29/21 14:21:00 EDT, Dry Weight Start Date: 02/09/22 Status: Ordered levothyroxine 0.088 mg oral tablet See Instructions, TAKE ONE TABLET BY MOUTH EVERY DAY, # 30 tablet, 5 Refills, 10/15/21 10:54:00 EDT, [facility] # [facility], Early refill, 170, cm, [...] barretts 4[place] [facility] [place] Social History Social History Type Response Smoking Status Never smoker entered on: 03/26/13 Sex Patient Care team information Care Team Personnel Name: Doc Acharya MD Position: S Primary Care Physician Member Role: PCP Address: Address: [address] [place] [address]- Care Team Related Persons Name: CHRIS BAEZ Name: STELLA BAEZ Address: home [address] [place] [address]
--- OUTSIDE RECORDS SUMMARY | 2023-09-30 21:28 | XMS_ITS | Continuity of Care Document ---
Author Organization [facility] Address [address] [place] [address]- Care Team Providers Care Construction Foreman Name Role Phone Doc Acharya MD Primary Care Physician [phone] [place] [facility](s): 11/16/19 - 11/23/19 [facility] Adult [address] [place] [address]- [facility] Encounter Diagnosis Nephrolithiasis(Discharge Diagnosis) - 11/16/19 Attending Physician: Doc Acharya MD Allergies, Adverse Reactions, Alerts Substance Reaction Severity Status epinephrine Active Novocain heavy breathing Active Immunizations Given and Recorded Vaccine Date Status Refusal Reason pneumococcal 23-valent vaccine 11/16/19 Given pneumococcal 13-valent vaccine 09/27/18 Given influenza virus [...] toxoids (Td) 02/29/96 Given 1Result Comment: [02/18/2017] [facility][NOTE 3]:[id number] 2Location History: [facility] 3Admin Note: [facility] 4Admin Note: [employer] 5Admin Note: [employer] 6Admin Note: per pt rcvd eklsewhere 7Admin [...] barretts 4[place] [facility] [place] Diagnosis Diagnosis Type Effective Dates Health Status Cl inical Service Informant Nephrolithiasis Discharge Diagnosis 11/16/19 Vital Signs Most recent to oldest [Reference Range]: 1 Height 170 cm (11/16/19 2:09 PM) Weight 98.5 kg (11/16/19 2:09 PM) Oxygen Saturation [94-100 %] 97 % (11/16/19 2:09 PM) Pulse Rate [55-90 bpm] 84 bpm (11/16/19 2:09 PM) Body Mass Index [18.5-24.99] 34.08 *>HHI* (11/16/19 2:09 PM) Blood Pressure [90-138/55-84 mm Hg] 112/ 78mm Hg (11/16/19 2:09 PM) Mode of Delivery (Oxygen) Room air (11/16/19 2:09 PM) Weight Obtained Via Standing scale (11/16/19 2:09 PM) Social History Social History Type Response Smoking Status Never smoker entered on: 03/26/13 Sex
[2023-09-30 22:05] VITALS: BP 141/73; PULSE 89; RESP 16; TEMP 36.3; O2SAT 95
== END 2023-09-30 22:06 | disposition home or self-care (01) ==
PROVIDERS: Emergency Provider Emergency Medicine; PCP Internal Medicine
DX: S83.91XA Sprain of unspecified site of right knee, initial encounter (principal); X50.1XXA Overexertion from prolonged static or awkward postures, initial encounter; Y93.89 Activity, other specified; Y92.015 Private garage of single-family (private) house as the place of occurrence of the external cause; Y99.9 Unspecified external cause status
CPT/HCPCS: 73564; 99282; 99283